=== PATIENT | female | born 1975 | race Caucasian/White ===

== ENCOUNTER → 2017-02-25 | Outpatient (CLI) | payer OTHER ==
--- NOTE | 2017-02-25 11:04 | US ---
EXAMINATION TYPE: US kidneys/renal and bladder DATE OF EXAM: 02/25/2017 8:57 AM COMPARISON: NONE CLINICAL HISTORY: 42-year-old female Abdominal Pain R10.84. Intermittent left flank pain and nausea x few months. TECHNIQUE: Multiple sonographic images of the kidneys and bladder are obtained. FINDINGS: Right Kidney: 10.3 x 5.9 x 5.4 cm Left Kidney: 10.5 x 5.2 x 4.7 cm No hydronephrosis on either side. No gross abnormality of the urine distended bladder. Both ureteral jets are visualized. IMPRESSION: No hydronephrosis.
== END | disposition home or self-care (01) ==
LOC: RADUSWWP 08:29
PROVIDERS: ATTEND Internal Medicine
DX: R10.84 Generalized abdominal pain (principal)
CPT/HCPCS: 76770

== ENCOUNTER → 2021-07-19 | Outpatient (CLI) | payer OTHER ==
--- NOTE | 2021-07-19 15:56 | US ---
EXAMINATION TYPE: US pelvis complete transvag DATE OF EXAM: 07/19/2021 COMPARISON: NONE CLINICAL HISTORY: R10.2 PELVIC AND PERINEL PAIN. TECHNIQUE: Transvaginal (TV) and Transabdominal (TA) . Transabdominal sonographic images of the pel vis were acquired. Transvaginal sonographic images were medically necessary to better assess the fol lowing anatomy: Date of LMP: ?? EXAM MEASUREMENTS: Uterus: 8.6x4.2x cm Endometrial Stripe: 0.5 cm Right Ovary: 2.4x1.6x1.5 cm Left Ovary: 3.0x2.0x2.0 cm Transvaginal exam limited due to incomplete bladder emptying. 1. Uterus: Heterogenous area posterior mid UT ? fibroid 1.9x1.7x1.7 2. Endometrium: wnl 3. Right Ovary: wnl 4. Left Ovary: Dominant follicle 1.3x1.3x1.2cm Spectral, color and waveform doppler imaging shows good arterial and venous flow within the ovaries ; there is no evidence for ovarian torsion. 5. Bilateral Adnexa: wnl 6. Posterior cul-de-sac: wnl IMPRESSION: 1. Uterine fibroid 2. Left ovarian cyst.
== END | disposition home or self-care (01) ==
LOC: RADUSWWP 13:34
PROVIDERS: ATTEND Internal Medicine
DX: D25.9 Leiomyoma of uterus, unspecified (principal); N83.202 Unspecified ovarian cyst, left side
CPT/HCPCS: 76830; 76856

== ENCOUNTER → 2023-12-24 | Outpatient (CLI) | payer OTHER ==
--- NOTE | 2023-12-25 17:51 | MM ---
Reason for Exam: Screening (asymptomatic). Last mammogram was performed 7 year(s) and 3 month(s) ago. Patient History: Menarche at age 13. First Full-Term at age 19. Premenopausal. Risk Values: Maribel 5 year model risk: 0.7%. NCI Lifetime model risk: 6.7%. Prior Study Comparison: 09/24/2016 Bilateral Screening Mammogram, [facility]. Tissue Density: There are scattered areas of fibroglandular density. Findings: Analyzed By CAD. There is no suspicious group of microcalcifications or new suspicious mass in either breast. Overall Assessment: Negative, BI-RAD 1 Management: Screening Mammogram of both breasts in 1 year. . Patient should continue monthly self-breast exams. A clinical breast exam by your physician is recommended on an annual basis. This exam should not preclude additional follow-up of suspicious palpable abnormalities. Note on Maribel scores and lifetime risk: 1. A Maribel score greater than 3% is considered moderate risk. If this is the case, consider specialist referral to assess eligibility for a risk reducing agent. 2. If overall lifetime risk for the development of breast cancer is 20% or higher, the patient may qualify for future screening with alternating mammogram and breast MRI. Electronically signed and approved by: Alin Mcgill M.D. Radiologist
== END | disposition home or self-care (01) ==
LOC: RADMAMWWP 08:54
PROVIDERS: ATTEND Family Medicine
DX: Z12.31 Encounter for screening mammogram for malignant neoplasm of breast (principal)
CPT/HCPCS: 77063; 77067

== ENCOUNTER → 2024-04-27 | Outpatient (CLI) | payer OTHER ==
--- NOTE | 2024-04-28 09:36 | MR ---
EXAMINATION TYPE: MR cervical spine wo con DATE OF EXAM: 04/27/2024 7:02 PM CLINICAL INDICATION:Female, 49 years old with history of NECK PAIN M54.12; PHH, Neck pain that radiat es down right arm to fingers. COMPARISON: None. TECHNIQUE: Multi planar, multi sequence imaging was performed utilizing: T1-weighted, T2-weighted, an d turbo inversion recovery imaging of the cervical spine. IV Contrast: cc (none if empty) FINDINGS: Alignment: The cervical vertebral bodies have preserved heights. Alignment is within normal limits gi lobito patient positioning. Bones: Bone signal is within normal limits. No abnormal bone marrow edema on inversion recovery seque nces. Cord: The spinal cord is unremarkable with regards to their signal intensity and morphology. Discs: Intervertebral disc signal is maintained. C2-C3: No significant disc pathology. The spinal canal is patent. No neural foraminal stenosis. C3-C4: No significant disc pathology. The spinal canal is patent. No neural foraminal stenosis. C4-C5: No significant disc pathology. The spinal canal is patent. No neural foraminal stenosis. C5-C6: No significant disc pathology. The spinal canal is patent. Bilateral facet and uncovertebral joint arthropathy are present with mild bilateral neural foraminal stenosis. C6-C7: No significant disc pathology. The spinal canal is patent. No neural foraminal stenosis. C7-T1: No significant disc pathology. The spinal canal is patent. No neural foraminal stenosis. Other: None. IMPRESSION: 1. No evidence for disc herniation or significant spinal canal stenosis. 2. Mild disc degeneration with associated osteoarthritic changes.
== END | disposition home or self-care (01) ==
LOC: RADMRIMAIN 18:28
PROVIDERS: ATTEND Orthopaedic Surgery
DX: M50.30 Other cervical disc degeneration, unspecified cervical region (principal); M17.11 Unilateral primary osteoarthritis, right knee; G56.21 Lesion of ulnar nerve, right upper limb; G56.01 Carpal tunnel syndrome, right upper limb
CPT/HCPCS: 72141

== ENCOUNTER → 2024-09-15 | Outpatient (CLI) | payer OTHER ==
--- NOTE | 2024-09-15 18:39 | MR ---
EXAMINATION TYPE: MR brain wo/w con DATE OF EXAM: 09/15/2024 5:10 PM COMPARISON: None. CLINICAL INDICATION: Female, 49 years old with history of M21.371 FOOT DROP, RIGHT FOOT, right foot d rop, tripping. whole right side of body has numbness and weakness. patient states making sure it isn' t MS. TECHNIQUE: Multiplanar, multiecho imaging on a 3.0 Suzanne magnet is performed through the brain. Stud y is performed within 24 hours of arrival to the hospital.Multiplanar, multiecho imaging on a 3.0 Christine la magnet is performed through the knee. IV Contrast: 5.5 mL Gadobutrol (None, if empty) FINDINGS: The craniovertebral junction is normal. The pituitary is normal. Corpus callosum is normal Diffusion-weighted imaging is performed. No abnormal hyperintensity is present to suggest an acute i ntracranial infarct or acute ischemic change. No suspicious signal abnormality is evident within the brain. No suspicious T2 or inversion recovery hyperintensity typical for multiple sclerosis identified . A venous angioma is likely within the infe rior medial right basal ganglion, normal variation. No suspicious enhancement is evident. Ventricles and sulci are appropriate for the patient age. Mucosal thickening as do the bilateral maxillary sinuses. Left ethmoid air cells and left sphenoid si nus contain mucosal thickening. IMPRESSION: 1. No suspicious signal abnormality within the brain to suggest multiple sclerosis. 2. No abnormal enhancement. [facility], Workstation: [facility], 09/15/2024 6:37 PM
== END | disposition home or self-care (01) ==
LOC: RADMRIMAIN 16:28
PROVIDERS: ATTEND Family Medicine
DX: M21.371 Foot drop, right foot (principal); R53.1 Weakness
CPT/HCPCS: 70553; A9585

== ENCOUNTER 2024-09-30 03:40 | Inpatient (IN) | payer OTHER ==
[2024-09-30] MEDS: KETOROLAC 15 MG/ML 1 ML VIAL IVP STA (04:41)
[2024-09-30] MEDS: SODIUM CHLORIDE 0.9% 1,000 ML IV STA (04:42)
[2024-09-30] MEDS: ONDANSETRON 4 MG/2 ML VIAL IVP STA (04:42)
[2024-09-30] MEDS: PANTOPRAZOLE 40 MG/10 ML VIAL IVP STA (04:42)
--- NOTE | 2024-09-30 05:09 | ED ---
General Adult HPI - General Source: patient, RN notes reviewed, old records reviewed Mode of arrival: ambulatory Limitations: no limitations <Johnie Castaneda - Last Filed: 09/30/24 06:38> <Joanie Piper - Last Filed: 10/05/24 12:32> - General Chief complaint: Abdominal Pain Stated complaint: ABD Pain Time Seen by Provider: 09/30/24 04:15 - History of Present Illness Initial comments: Patient is a 49-year-old female presents emergency department with lower abdominal pain. Describes as a cramping sensation. Has been ongoing for at least 12 hours. Recently had her menstrual cycle 2 weeks ago. Denies any menstrual bleeding. Describes it as a cramping sensation that is rather severe. Denies any urinary complaints. Denies any vaginal bleeding or discharge. No history of STDs. Denies diarrhea or constipation. Has no other acute complaints at this time. Presents for further evaluation at this time. Has a history of cholecystectomy. (Johnie Castaneda) - Related Data Home Medications Medication Instructions Recorded Confirmed Dextroamphetamine/Amphetamine 20 mg PO DAILY 09/30/24 09/30/24 [Adderall] buPROPion XL [Wellbutrin XL] 150 mg PO DAILY 09/30/24 09/30/24 Allergies Allergy/AdvReac Type Severity Reaction Status Date / Time azithromycin Allergy Nausea & Verified 09/30/24 08:38 Vomiting & Diarrhea Review of Systems ROS Other: All systems not noted in ROS Statement are negative. <Johnie Castaneda - Last Filed: 09/30/24 06:38> ROS Other: All systems not noted in ROS Statement are negative. <Joanie Piper - Last Filed: 10/05/24 12:32> ROS Statement: Those systems with pertinent positive or pertinent negative responses have been documented in the HPI. Review of Systems: CONST: Denies fever EYES: Denies blurry vision ENT: Denies nasal congestion C/V: Denies Chest pain RESP: Denies shortness of breath GI: Endorses abdominal pain : Denies dysuria SKIN: Denies rash. MSK: Denies joint pain. NEURO: Denies headache (Johnie Castaneda) Past Medical History Past Medical History: No Reported History History of Any Multi-Drug Resistant Organisms: None Reported Past Surgical History: Cholecystectomy Past Psychological History: Anxiety, Depression Smoking Status: Vaper Past Alcohol Use History: Rare Past Drug Use History: None Reported <Johnie Castaneda - Last Filed: 09/30/24 06:38> General Exam Limitations: no limitations <Johnie Castaneda - Last Filed: 09/30/24 06:38> - General Exam Comments Initial Comments: General: Appears in mild acute distress HEAD: Normal with no signs of head trauma. EYES: EOMI ENT: Hearing grossly intact, normal oropharynx. RESPIRATORY: Clear breath sounds bilaterally. No wheezes, rales, or rhonchi. C/V: Regular rate and rhythm. S1 and S2 auscultated, no edema, peripheral pulses 2+ and intact throughout ABD: Abdomen soft, nondistended. Tender palpation in the suprapubic region. No guarding or rebound tenderness. No peritoneal signs. EXT: Normal range of motion, no obvious deformity SKIN: No rashes or lesions observed on exposed skin. NEURO: Alert and oriented x 4. (Johnie Castaneda) Course Vital Signs 09/30/24 09/30/24 09/30/24 03:50 07:30 17:09 Temperature 98.7 F 98.7 F Pulse Rate 87 77 83 Respiratory 16 16 16 Rate Blood Pressure 109/77 96/66 107/70 O2 Sat by Pulse 100 100 Oximetry 09/30/24 09/30/24 09/30/24 18:59 19:12 20:37 Temperature 98.6 F Pulse Rate 183 H 83 80 Respiratory 16 14 Rate Blood Pressure 101/77 98/58 O2 Sat by Pulse 99 98 Oximetry 09/30/24 21:56 Temperature 98.6 F Pulse Rate 68 Respiratory 16 Rate Blood Pressure 107/70 O2 Sat by Pulse 100 Oximetry Medical Decision Making - Lab Data Result diagrams: 09/30/24 04:49 09/30/24 04:49 <Jhonie Castaneda - Last Filed: 09/30/24 06:38> - Lab Data Result diagrams: 10/04/24 06:08 10/04/24 06:08 <Joanie Piper - Last Filed: 10/05/24 12:32> - Medical Decision Making Was pt. sent in by a medical professional or institution (, PA, TECHNICAL SUPPORT PROFESSIONAL, urgent care, hospital, or fci...) When possible be specific @ -No Did you speak to anyone other than the patient for history (EMS, parent, family, police, friend...)? What history was obtained from this source @ -No Did you review nursing and triage notes (agree or disagree)? Why? @ -I reviewed and agree with nursing and triage notes Were old charts reviewed (outside hosp., previous admission, EMS record, old EKG, old radiological studies, urgent care reports/EKG's, fci records)? Report findings @ -No old charts were reviewed Differential Diagnosis (chest pain, altered mental status, abdominal pain women, abdominal pain men, vaginal bleeding, weakness, fever, dyspnea, syncope, headache, dizziness, GI bleed, back pain, seizure, CVA, palpatations, mental health, musculoskeletal)? @ -Differential Abdominal Pain Women: Appendicitis, Cholecystitis, diverticulosis, ischemic bowel, pancreatitis, hepatitis, UTI, gastroenteritis, AAA, incarcerated hernia, bowel obstruction, constipation, inflammatory bowel, hepatitis, peptic ulcer disease, splenic infarction, perforated viscus, vulvitis, ovarian torsion, PID, kidney stone, placenta abruption, this is not meant to be an all-inclusive list EKG interpreted by me (3pts min.). @ -None done X-rays interpreted by me (1pt min.). @ -None done CT interpreted by me (1pt min.). @ -Pending U/S interpreted by me (1pt. min.). @ -Pending What testing was considered but not performed or refused? (CT, X-rays, U/S, labs)? Why? @ -None What meds were considered but not given or refused? Why? @ -None Did you discuss the management of the patient with other professionals (professionals i.e. , PA, TECHNICAL SUPPORT PROFESSIONAL, lab, RT, psych nurse, bilingual social worker, optimization consultant, teacher, postal delivery officer, telephonic nurse case manager)? Give summary @ -No Was smoking cessation discussed for >3mins.? @ -No Was critical care preformed (if so, how long)? @ -No Were there social determinants of health that impacted care today? How? (Homelessness, low income, unemployed, alcoholism, drug addiction, transportation, low edu. Level, literacy, decrease access to med. care, senior care, rehab)? @ -No Was there de-escalation of care discussed even if they declined (Discuss DNR or withdrawal of care, Hospice)? DNR status @ -No What co-morbidities impacted this encounter? (DM, HTN, Smoking, COPD, CAD, Cancer, CVA, ARF, Chemo, Hep., AIDS, mental health diagnosis, sleep apnea, morbid obesity)? @ -None Was patient admitted / discharged? Hospital course, mention meds given and route, prescriptions, significant lab abnormalities, going to OR and other pertinent info. @ -Based on patient's presentation and physical exam, presents emergency department complaining of lower abdominal pain ongoing for at least 12 hours. She has experienced this previously with no obvious diagnosis. We will obtain laboratory studies, abdominal CT, as well as ultrasound of the pelvis. This will rule out torsion. Patient will be symptomatically treated with IV fluids, Protonix, Zofran, Toradol. Patient was in agreement this plan. Vitals current ly within acceptable limits. Patient signed out to Dr. Piper pending results of workup. Undiagnosed new problem with uncertain prognosis? @ -No Drug Therapy requiring intensive monitoring for toxicity (Heparin, Nitro, Insulin, Cardizem)? @ -No Were any procedures done? @ -No (Johnie Castaneda) Was patient admitted / discharged? Hospital course, mention meds given and route, prescriptions, significant lab abnormalities, going to OR and other pertinent info. @ -I received a call which stated the patient had free air. This is discussed with the patient. I then discussed this with Dr. Howell. Patient will have fluids and antibiotics ordered. She remains NPO. She will be admitted to surgery. Patient agreeable to this plan Undiagnosed new problem with uncertain prognosis? @ -No Drug Therapy requiring intensive monitoring for toxicity (Heparin, Nitro, Ins ulin, Cardizem)? @ -No Were any procedures done? @ -No Diagnosis/symptom? @ -Acute abdominal pain, acute pneumoperitoneum, suspected diverticular rupture Acute, or Chronic, or Acute on Chronic? @ -Acute Uncomplicated (without systemic symptoms) or Complicated (systemic symptoms)? @ -Complicated Side effects of treatment? @ -No Exacerbation, Progression, or Severe Exacerbation? @ -No Poses a threat to life or bodily function? How? (Chest pain, [place], [place], pneumonia, PE, COPD, DKA, ARF, appy, cholecystitis, CVA, Diverticulitis, Homicidal, Suicidal, threat to staff... and all critical care pts) @ -Yes as patient does have pneumoperitoneum (Joanie Piper) - Lab Data Lab Results 09/30/24 09/30/24 09/30/24 Range/Units 04:49 04:49 04:49 WBC 11.4 H (3.8-10.6) k/uL RBC 5.26 (3.80-5.40) m/uL Hgb 14.3 (11.4-16.0) gm/dL Hct 44.6 (34.0-46.0) % MCV 84.8 (80.0-100.0) fL MCH 27.3 (25.0-35.0) pg MCHC 32.1 (31.0-37.0) g/dL RDW 13.5 (11.5-15.5) % Plt Count 275 (150-450) k/uL MPV 7.2 Neutrophils % 77 % Lymphocytes % 15 % Monocytes % 4 % Eosinophils % 2 % Basophils % 0 % Neutrophils # 8.8 H (1.3-7.7) k/uL Lymphocytes # 1.7 (1.0-4.8) k/uL Monocytes # 0.5 (0-1.0) k/uL Eosinophils # 0.2 (0-0.7) k/uL Basophils # 0.1 (0-0.2) k/uL PT (10.0-12.5) sec INR (<1.2) APTT (22.0-30.0) sec Sodium 135 L (137-145) mmol/L Potassium 4.1 (3.5-5.1) mmol/L Chloride 107 (98-107) mmol/L Carbon Dioxide 22 (22-30) mmol/L Anion Gap 6 mmol/L BUN 21 H (7-17) mg/dL Creatinine 0.80 (0.52-1.04) mg/dL Est GFR (CKD-EPI)AfAm >90 (>60 ml/min/1.73 sqM) Est GFR (CKD-EPI)NonAf 87 (>60 ml/min/1.73 sqM) Glucose 83 (74-99) mg/dL Plasma Lactic Acid Robe (0.7-2.0) mmol/L Calcium 9.8 (8.4-10.2) mg/dL Total Bilirubin 0.4 (0.2-1.3) mg/dL AST 19 (14-36) U/L ALT 11 (4-34) U/L Alkaline Phosphatase 46 (38-126) U/L Total Protein 7.6 (6.3-8.2) g/dL Albumin 4.8 (3.5-5.0) g/dL Amylase 55 (30-110) U/L Lipase 272 (23-300) U/L HCG, Qual Not Detected Urine Color Colorless Urine Appearance Clear (Clear) Urine pH 6.5 (5.0-8.0) Ur Specific [place] 1.012 (1.001-1.035) Urine Protein Negative (Negative) Urine Glucose (UA) Negative (Negative) Urine Ketones Negative (Negative) Urine Blood Negative (Negative) Urine Nitrite Negative (Negative) Urine Bilirubin Negative (Negative) Urine Urobilinogen <2.0 (<2.0) mg/dL Ur Leukocyte Esterase Negative (Negative) 09/30/24 09/30/24 Range/Units 04:49 05:03 WBC (3.8-10.6) k/uL RBC (3.80-5.40) m/uL Hgb (11.4-16.0) gm/dL Hct (34.0-46.0) % MCV (80.0-100.0) fL MCH (25.0-35.0) pg MCHC (31.0-37.0) g/dL RDW (11.5-15.5) % Plt Count (150-450) k/uL MPV Neutrophils % % Lymphocytes % % Monocytes % % Eosinophils % % Basophils % % Neutrophils # (1.3-7.7) k/uL Lymphocytes # (1.0-4.8) k/uL Monocytes # (0-1.0) k/uL Eosinophils # (0-0.7) k/uL Basophils # (0-0.2) k/uL PT 10.6 (10.0-12.5) sec INR 0.9 (<1.2) APTT 24.6 (22.0-30.0) sec Sodium (137-145) mmol/L Potassium (3.5-5.1) mmol/L Chloride (98-107) mmol/L Carbon Dioxide (22-30) mmol/L Anion Gap mmol/L BUN (7-17) mg/dL Creatinine (0.52-1.04) mg/dL Est GFR (CKD-EPI)AfAm (>60 ml/min/1.73 sqM) Est GFR (CKD-EPI)NonAf (>60 ml/min/1.73 sqM) Glucose (74-99) mg/dL Plasma Lactic Acid Robe 1.1 (0.7-2.0) mmol/L Calcium (8.4-10.2) mg/dL Total Bilirubin (0.2-1.3) mg/dL AST (14-36) U/L ALT (4-34) U/L Alkaline Phosphatase (38-126) U/L Total Protein (6.3-8.2) g/dL Albumin (3.5-5.0) g/dL Amylase (30-110) U/L Lipase (23-300) U/L HCG, Qual Urine Color Urine Appearance (Clear) Urine pH (5.0-8.0) Ur Specific [place] (1.001-1.035) Urine Protein (Negative) Urine Glucose (UA) (Negative) Urine Ketones (Negative) Urine Blood (Negative) Urine Nitrite (Negative) Urine Bilirubin (Negative) Urine Urobilinogen (<2.0) mg/dL Ur Leukocyte Esterase (Negative) Disposition <Johnie Castaneda - Last Filed: 09/30/24 06:38> Is patient prescribed a controlled substance at d/c from ED?: No Time of Disposition: 08:21 Decision to Admit Reason: Admit from EC Decision Date: 09/30/24 Decision Time: 08:21 <Joanie Piper - Last Filed: 10/05/24 12:32> Clinical Impression: Pneumoperitoneum Disposition: ADMITTED IP TO THIS HOSP Condition: Serious
[2024-09-30 05:23] LABS: Basophils # (A) 0.1 k/uL (0-0.2); Basophils % (A) 0 %; Eosinophils # (A) 0.2 k/uL (0-0.7); Eosinophils % (A) 2 %; HCT 44.6 % (34.0-46.0); HGB 14.3 gm/dL (11.4-16.0); Lymphocytes # (A) 1.7 k/uL (1.0-4.8); Lymphocytes % (A) 15 %; MCH 27.3 pg (25.0-35.0); MCHC 32.1 g/dL (31.0-37.0); MCV 84.8 fL (80.0-100.0); Mean Platelet Volume 7.2; Monocytes # (A) 0.5 k/uL (0-1.0); Monocytes % (A) 4 %; Neutrophils # (A) 8.8 k/uL (1.3-7.7); Neutrophils % (A) 77 %; Platelet Count 275 k/uL (150-450); RBC 5.26 m/uL (3.80-5.40); RDW 13.5 % (11.5-15.5); WBC 11.4 k/uL (3.8-10.6)
[2024-09-30 06:01] LABS: ALT 11 U/L (4-34); AST 19 U/L (14-36); African American GFR (CKD) >90 (>60 ml/min/1.73 sqM); Albumin 4.8 g/dL (3.5-5.0); Alkaline Phosphatase 46 U/L (38-126); Amylase 55 U/L (30-110); Anion Gap 6 mmol/L; Blood Urea Nitrogen 21 mg/dL (7-17); Calcium 9.8 mg/dL (8.4-10.2); Carbon Dioxide 22 mmol/L (22-30); Chloride 107 mmol/L (98-107); Glucose 83 mg/dL (74-99); Lipase 272 U/L (23-300); Non-African American GFR(CKD) 87 (>60 ml/min/1.73 sqM); Potassium 4.1 mmol/L (3.5-5.1); Sodium 135 mmol/L (137-145); Total Bilirubin 0.4 mg/dL (0.2-1.3); Total Protein 7.6 g/dL (6.3-8.2)
[2024-09-30 06:17] LABS: HCG,Qualitative Serum Not Detected
[2024-09-30 06:32] LABS: INR 0.9 (<1.2); Partial Thromboplastin Time 24.6 sec (22.0-30.0); Prothrombin Time 10.6 sec (10.0-12.5)
[2024-09-30 07:12] LABS: Appearance,Urine Clear (Clear); Bilirubin,Urine Negative (Negative); Blood,Urine Negative (Negative); Color,Urine Colorless; Glucose,Urine (UA) Negative (Negative); Ketones,Urine Negative (Negative); Leukocyte Esterase,Urine Negative (Negative); Nitrite,Urine Negative (Negative); PH, Urine 6.5 (5.0-8.0); Protein,Urine Negative (Negative); Specific Gravity,Urine 1.012 (1.001-1.035); Urobilinogen,Urine <2.0 mg/dL (<2.0)
--- NOTE | 2024-09-30 08:16 | US ---
EXAMINATION TYPE: US pelvis complete transvag DATE OF EXAM: 09/30/2024 COMPARISON: NONE CLINICAL INDICATION: Female, 49 years old with history of eval for torsion; Patient states lower abdo jacinto pain/ cramping. Hx endo ablation TECHNIQUE: Transvaginal (TV) and Transabdominal (TA) . Transabdominal grayscale sonographic images of the pelvis were acquired. Transvaginal sonographic im ages were medically necessary to better assess the following anatomy: Ovaries Doppler imaging: Color Doppler Images were obtained. Spectral doppler images were obtained. FINDINGS: Date of LMP: 09/15/2024 EXAM MEASUREMENTS: Uterus: 8.6 x 3.7 x 5.1 cm Endometrial Stripe: 0.5 cm Right Ovary: 2.3 x 1.6 x 1.7 cm Left Ovary: 2.4 x 2.1 x 2.3cm cm 1. Uterus: Anteverted wnl as best seen, probable nabothian cysts seen within the cx 2. Endometrium: difficult to visualize due to endo ablation, however appears wnl 3. Right Ovary: follicular changes noted. supplemental transabdominal imaging done due to ovary loca tion on TV exam 4. Left Ovary: There is a 1.4 x 1.6 x 1.4cm dom follicle Spectral, color and waveform doppler imaging shows good arterial and venous flow within the ovaries ; there is no evidence for ovarian torsion. 5. Bilateral Adnexa: wnl as best seen 6. Posterior cul-de-sac: wnl IMPRESSION: 1. No evidence for acute process. 2. Endometrium is poorly visualized possibly due to endometrial ablation. 3. Appropriate arterial and venous spectral waveforms to the ovaries. 4. Left ovarian dominant follicle. [facility], , 09/30/2024 8:14 AM
--- NOTE | 2024-09-30 08:17 | CT ---
EXAMINATION TYPE: CT abdomen pelvis w con DATE OF EXAM: 09/30/2024 6:50 AM COMPARISON: None. CLINICAL INDICATION: Female, 49 years old with history of abdominal pain, TECHNIQUE:CT scan of the abdomen and pelvis is performed without Oral Contrast and with IV Contrast, patient injected with 100 mL of Isovue 300. CT DLP: mGycm, Automated exposure control for dose reduction was used. FINDINGS: LUNG BASES-: No visible nodule. No infiltrate. LIVER/GB: The gallbladder is surgically absent. Focal fat adjacent to the falciform ligament. No s pace occupying hepatic lesion. Biliary tree is of normal caliber. PANCREAS: No inflammation. No distinct mass. SPLEEN: No splenic enlargement. No lesion seen. ADRENALS: No nodule. No thickening. KIDNEYS/BLADDER: No hydronephrosis. No nephrolithiasis. No distinct renal mass. Urinary bladder g rossly unremarkable. BOWEL: There is evidence of mild pneumoperitoneum. There is mild inflammatory change suggested about the sigmoid colon which could reflect diverticulitis. Free air could be related to perforated divert iculitis although this is difficult to state with certainty. No evidence for abscess. Poor visualizat ion of the appendix. Remaining small and large bowel are of normal caliber. GENITAL ORGANS: Left ovarian cyst measuring 1.6 cm. Uterus and right ovary are unremarkable. LYMPH NODES: No greater than 1cm abdominal or pelvic lymph nodes are appreciated. AORTA: No significant abnormality. OSSEOUS STRUCTURES: No significant abnormality is seen. OTHER: 1.2 cm right breast nodule. Ultrasound and mammography advised. IMPRESSION: 1. There is evidence of mild pneumoperitoneum. There is mild inflammatory change suggested about the sigmoid colon which could reflect diverticulitis. Free air could be related to perforated diverticul itis although this is difficult to state with certainty. 2. Left ovarian cyst measuring 1.6 cm. [facility], , 09/30/2024 8:15 AM
[2024-09-30] MEDS ORDERED: NALOXONE 0.4 MG/ML 1 ML VIAL IV PRN (08:22)
[2024-09-30] MEDS: SODIUM CHLORIDE 0.9% 1,000 ML IV ONE (08:43)
[2024-09-30] MEDS: SODIUM CHLORIDE 0.9% 1,000 ML IV SCH (08:43)
[2024-09-30] MEDS: HYDROmorphone 0.5 MG/0.5 ML SYRINGE IVP STA (08:44)
[2024-09-30] MEDS: PIPERACILLIN-TAZOBACTAM 3.375 GM in SODIUM CHLORIDE 0.9% 100 ML IVPB SCH ×2 (08:49→14:58)
[2024-09-30] MEDS: HYDROmorphone 1 MG/ML 1 ML SYRINGE IVP PRN (12:41)
--- NOTE | 2024-09-30 12:52 | P.GSHP ---
History of Present Illness H&P Date: 09/30/24 CHIEF COMPLAINT: Abdominal pain HISTORY OF PRESENT ILLNESS: This is a 49-year-old female who presented to the hospital with complaints of abdominal pain that started suddenly and very severe yesterday afternoon. Patient reports pain in the suprapubic area and left lower quadrant. She does have a known history of constipation. Patient also reports feeling nauseous. She denies any prior history of diverticulitis. She has never had a colonoscopy. She had a CAT scan of the abdomen completed reporting mild pneumoperitoneum possibly due to perforated diverticulitis. Patient is been started on IV antibiotics and is currently NPO. Her past surgical history includes cholecystectomy. Patient seen and examined with Dr. Howell PAST MEDICAL HISTORY: Anxiety and depression PAST SURGICAL HISTORY: Cholecystectomy MEDICATIONS: See below ALLERGIES: See below SOCIAL HISTORY: No illicit drug use. REVIEW OF SYSTEMS: CONSTITUTIONAL: Denies fever or chills. HEENT: Denies blurred vision, vision changes, or eye pain. Denies hemoptysis CARDIOVASCULAR: Denies chest pain or pressure. RESPIRATORY: No shortness of breath. GASTROINTESTINAL: See HPI for pertinent findings HEMATOLOGIC: Denies bleeding disorders. GENITOURINARY: Denies any blood in urine or increased urinary frequency. SKIN: Denies pruitis. Denies rash. PHYSICAL EXAM: VITAL SIGNS: Reviewed GENERAL: Well-developed in no acute distress. HEENT: No sclera icterus. Extraocular movements grossly intact. Moist buccal mucosa. Head is atraumatic, normocephalic. No nasal drainage. ABDOMEN: Soft. Nondistended. Severe tenderness with palpation of the suprapubic area and left lower quadrant. Patient is guarding. Abdominal pain with movement of the bed NEUROLOGIC: Alert and oriented. Cranial nerves II through XII grossly intact. LABORATORY DATA: WBC 11.4 Hgb 14.3 platelets 275 INR 0.9 Sodium 135 potassium 4.1 creatinine 0.80 Lactic acid 1.1 IMAGING: CT scan abdomen pelvis reports evidence of mild pneumoperitoneum. There is mild inflammatory change suggestive about the sigmoid colon which could reflect diverticulitis. Free air could be related to a perforated diverticulitis. Left ovarian cyst measuring 1.6 cm. Pelvic ultrasound no evidence of acute process. Endometrium poorly visualized due to endometrial ablation. ASSESSMENT: 1. Acute diverticulitis of the sigmoid colon with microperforation. CT scan with evidence of mild pneumoperitoneum with inflammatory changes of the sigmoid colon that could reflect diverticulitis and possible perforated diverticulitis. PLAN: -Continue IV antibiotics -Keep patient n.p.o. except for ice chips -Continue IV fluids -Increased pain medication to Dilaudid 1 mg every 3 hours PRN pain -DVT prophylaxis subcu heparin Physician Military Source Operations Specialist note has been reviewed by physician. Signing provider agrees with the documented findings, assessment, and plan of care. Past Medical History Past Medical History: No Reported History History of Any Multi-Drug Resistant Organisms: None Reported Past Surgical History: Cholecystectomy Past Psychological History: Anxiety, Depression Smoking Status: Vaper Past Alcohol Use History: Rare Past Drug Use History: None Reported Medications and Allergies Home Medications Medication Instructions Recorded Confirmed Type Dextroamphetamine/Amphetamine 20 mg PO DAILY 09/30/24 09/30/24 History [Adderall] buPROPion XL [Wellbutrin XL] 150 mg PO DAILY 09/30/24 09/30/24 History Allergies Allergy/AdvReac Type Severity Reaction Status Date / Time azithromycin Allergy Nausea & Verified 09/30/24 08:38 Vomiting & Diarrhea Surgical - Exam Vital Signs Temp Pulse Resp BP Pulse Ox 98.7 F 87 16 109/77 100 09/30/24 03:50 09/30/24 03:50 09/30/24 03:50 09/30/24 03:50 09/30/24 03:50 Results - Labs 09/30/24 04:49 09/30/24 04:49 Abnormal Lab Results - Last 24 Hours (Table) 09/30/24 09/30/24 Range/Units 04:49 04:49 WBC 11.4 H (3.8-10.6) k/uL Neutrophils # 8.8 H (1.3-7.7) k/uL Sodium 135 L (137-145) mmol/L BUN 21 H (7-17) mg/dL Diabetes panel 09/30/24 Range/Units 04:49 Sodium 135 L (137-145) mmol/L Potassium 4.1 (3.5-5.1) mmol/L Chloride 107 (98-107) mmol/L Carbon Dioxide 22 (22-30) mmol/L BUN 21 H (7-17) mg/dL Creatinine 0.80 (0.52-1.04) mg/dL Glucose 83 (74-99) mg/dL Calcium 9.8 (8.4-10.2) mg/dL AST 19 (14-36) U/L ALT 11 (4-34) U/L Alkaline Phosphatase 46 (38-126) U/L Total Protein 7.6 (6.3-8.2) g/dL Albumin 4.8 (3.5-5.0) g/dL Calcium panel 09/30/24 Range/Units 04:49 Calcium 9.8 (8.4-10.2) mg/dL Albumin 4.8 (3.5-5.0) g/dL Pituitary panel 09/30/24 Range/Units 04:49 Sodium 135 L (137-145) mmol/L Potassium 4.1 (3.5-5.1) mmol/L Chloride 107 (98-107) mmol/L Carbon Dioxide 22 (22-30) mmol/L BUN 21 H (7-17) mg/dL Creatinine 0.80 (0.52-1.04) mg/dL Glucose 83 (74-99) mg/dL Calcium 9.8 (8.4-10.2) mg/dL Adrenal panel 09/30/24 Range/Units 04:49 Sodium 135 L (137-145) mmol/L Potassium 4.1 (3.5-5.1) mmol/L Chloride 107 (98-107) mmol/L Carbon Dioxide 22 (22-30) mmol/L BUN 21 H (7-17) mg/dL Creatinine 0.80 (0.52-1.04) mg/dL Glucose 83 (74-99) mg/dL Calcium 9.8 (8.4-10.2) mg/dL Total Bilirubin 0.4 (0.2-1.3) mg/dL AST 19 (14-36) U/L ALT 11 (4-34) U/L Alkaline Phosphatase 46 (38-126) U/L Total Protein 7.6 (6.3-8.2) g/dL Albumin 4.8 (3.5-5.0) g/dL
[2024-09-30] MEDS: ACETAMINOPHEN TAB 325 MG TAB PO PRN (17:18)
[2024-09-30] MEDS: HEPARIN SODIUM,PORCINE 5,000 UNIT/ML 1 ML VIAL SQ SCH (20:31)
[2024-10-01 08:58] LABS: Basophils # (A) 0.02 X 10*3/uL (0.00-0.10); Basophils % (A) 0.2 %; Calcium 7.9 mg/dL (8.7-10.3); Carbon Dioxide 19.2 mmol/L (21.6-31.8); Chloride 109 mmol/L (96-109); Eosinophils # (A) 0.08 X 10*3/uL (0.04-0.35); Glucose 62 mg/dL (70-110); HCT 34.1 % (37.2-46.3); HGB 10.5 g/dL (12.0-15.0); Lymphocytes # (A) 1.72 X 10*3/uL (0.90-5.00); Lymphocytes % (A) 21.1 %; MCH 26.6 pg (27.0-32.0); MCHC 30.8 g/dL (32.0-37.0); MCV 86.5 FL (80.0-97.0); Mean Platelet Volume 10.7 FL (9.5-12.2); Monocytes # (A) 0.59 X 10*3/uL (0.20-1.00); Monocytes % (A) 7.2 %; NRBC Per 100 WBC 0 X 10*3/uL (0.00-0.01); Neutrophils % (A) 70.1 %; Platelet Count 186 X 10*3/uL (140-440); Potassium 3.9 mmol/L (3.5-5.5); RBC 3.94 X 10*6/uL (4.10-5.20); RDW 13.9 % (11.5-14.5); Sodium 138 mmol/L (135-145); WBC 8.14 X 10*3/uL (4.50-10.00)
[2024-10-01] MEDS: IOPAMIDOL CONTRAST (ORAL USE) VIAL PO PRN (10:59)
[2024-10-01] MEDS: ACETAMINOPHEN IV (For NPO) 1,000 MG in EMPTY BAG 1 BAG IVPB SCH (11:58)
--- NOTE | 2024-10-01 13:04 | CT ---
EXAMINATION TYPE: CT abdomen pelvis w con CT DLP: 630.1 mGycm, Automated exposure control for dose reduction was used. DATE OF EXAM: 10/01/2024 12:50 PM COMPARISON: CT abdomen pelvis 09/30/2024, pelvic ultrasound 09/30/2024 CLINICAL INDICATION:Female, 49 years old with history of abdominal pain; lower abd pain TECHNIQUE: Standard CT of the abdomen and pelvis following the administration of 100 cc of Isovue 3 00 IV contrast material and oral contrast. Coronal and sagittal reformats were performed. Patient was reportedly unable to keep oral prep down. FINDINGS: LOWER CHEST: Unremarkable ABDOMEN LIVER: Focal fatty infiltration adjacent to the falciform ligament in segment IVb GALLBLADDER AND BILE DUCTS: The gallbladder is surgically absent. No biliary duct dilatation. PANCREAS: Unremarkable. SPLEEN: Unremarkable. ADRENAL GLANDS: Unremarkable. KIDNEYS AND URETERS: No evidence of hydronephrosis or renal calculus. The kidneys enhance symmetrical ly. Contrast is demonstrated within both collecting systems on the delayed phase. PELVIS BLADDER: Underdistended but grossly unremarkable. REPRODUCTIVE: Anteverted uterus with enhancing myometrial 2.4 cm lesion likely representing a fibroid . Left ovarian probable corpus luteal cyst measuring up to 1.6 cm. ABDOMEN & PELVIS STOMACH AND BOWEL: Oral contrast is only demonstrated within the stomach.The appendix is within brooks l limits. Distal colonic diverticulosis with fat stranding identified around the sigmoid colon. No ev idence of bowel obstruction. No surrounding inflammatory changes or wall thickening involving the sto mach or duodenum. PERITONEUM/RETROPERITONEUM: Increased pneumoperitoneum from earlier examination. Increased presacral fat stranding/fluid. No organized fluid collections. VASCULATURE: No evidence of aortic aneurysm. MUSCULOSKELETAL: No acute osseous abnormalities LYMPH NODES: No evidence for lymphadenopathy. SOFT TISSUE/ABDOMINAL WALL: Unremarkable IMPRESSION: Mild interval increase in pneumoperitoneum from yesterday's CT with redemonstration of inflammatory c hanges around the sigmoid diverticula. Findings probably relate to perforated sigmoid diverticulitis. Oral contrast only was demonstrated within the stomach due to patient unable to keep down. No surrou nding organized fluid collection. [facility], , 10/01/2024 1:02 PM
--- NOTE | 2024-10-01 14:57 | P.PN ---
Subjective Progress Note Date: 10/01/24 SURGICAL PROGRESS NOTE CHIEF COMPLAINT: Perforated diverticulitis HISTORY OF PRESENT ILLNESS: Patient complains of pain across the lower abdomen mostly left lower quadrant and suprapubic area. Patient reports that the pain is not worse than yesterday. She does have pain with movement. She is having f latus. She reports nausea with even just small sip of water. Patient reports being able to urinate. Patient did have a sharp pain in the abdomen with urinating. Patient is still severely tender. Afebrile. She was mildly tachycardic. BP 96/62. WBC is down from 11.4-8.14 Hgb 10.5 platelets 186 sodium 138 potassium 3.9 creatinine 0.6 Patient seen and examined with Dr. Howell PHYSICAL EXAM: VITAL SIGNS: Reviewed. GENERAL: Well-developed in no acute distress. HEENT: No sclera icterus. Extraocular movements grossly intact. Moist buccal mucosa. Head is atraumatic, normocephalic. ABDOMEN: Soft. Nondistended. Patient is extremely tender on exam with palpation across the lower abdomen mostly suprapubic and left lower quadrant. She does have guarding present. There is pain when the bed is moved. NEUROLOGIC: Alert and oriented. Cranial nerves II through XII grossly intact. ASSESSMENT: 1. Acute diverticulitis of the sigmoid colon with microperforation. PLAN: -Due to patient's severe abdominal pain with not much of his improvement repeat CT scan abdomen and pelvis with oral and IV contrast was ordered this morning. Results reported mild interval increase in pneumoperitoneum from yesterday's CT with redemonstration of inflammatory changes around the sigmoid diverticula. Findings are probably related to perforated sigmoid diverticulitis. no organizing fluid collection. -Dr. Howell did discuss CT scan findings with patient. At this time patient will be tentatively scheduled for sigmoid colectomy tomorrow. -Will give 1 liter fluid bolus due to hypotension -Fluids will be changed to lactated Ringer at 150 mL/h -Continue antibiotics -Continue IV fluids -Continue pain management. IV Tylenol added. -Keep patient n.p.o. -Add GI prophylaxis Protonix Physician Ball Point Splitter note has been reviewed by physician. Signing provider agrees with the documented findings, assessment, and plan of care. Objective - Vital Signs Vital signs: Vital Signs Temp 98.1 F 10/01/24 13:15 Pulse 89 10/01/24 13:15 Resp 18 10/01/24 13:15 BP 96/62 10/01/24 13:15 Pulse Ox 98 10/01/24 13:15 FiO2 Intake & Output 09/30/24 10/01/24 10/01/24 18:59 06:59 18:59 Weight 55.792 kg Other: Voiding Method Toilet Toilet # Voids 2 - Labs CBC & Chem 7: 10/01/24 03:34 10/01/24 03:34 Labs: Abnormal Lab Results - Last 24 Hours (Table) 10/01/24 10/01/24 Range/Units 03:34 03:34 RBC 3.94 L (4.10-5.20) X 10*6/uL Hgb 10.5 L (12.0-15.0) g/dL Hct 34.1 L (37.2-46.3) % MCH 26.6 L (27.0-32.0) pg MCHC 30.8 L (32.0-37.0) g/dL Carbon Dioxide 19.2 L (21.6-31.8) mmol/L BUN/Creatinine Ratio 25.00 H (12.00-20.00) Ratio Glucose 62 L (70-110) mg/dL Calcium 7.9 L (8.7-10.3) mg/dL Microbiology - Last 24 Hours (Table) 09/30/24 08:38 Blood Culture - Preliminary Blood
[2024-10-01] MEDS: PANTOPRAZOLE 40 MG/10 ML VIAL IVP SCH (15:08)
[2024-10-01] MEDS: SODIUM CHLORIDE 0.9% 1,000 ML IV ONE (15:08)
[2024-10-01] MEDS: DEXTROSE 5% IN WATER 1,000 ML IV SCH (17:05)
[2024-10-01] MEDS: ONDANSETRON 4 MG/2 ML VIAL IVP PRN (22:23)
--- NOTE | 2024-10-02 01:00 | P.CONS ---
History of Present Illness - Reason for Consult Consult date: 10/01/24 Medical management - Chief Complaint Abdominal pain - History of Present Illness Patient is a 49-year-old female with a past medical history of anxiety/depression and history of vaping presents to ER with complaints of abdominal pain since yesterday. Mainly in the lower abdomen and suprapubic area as well as left lower quadrant. Patient does have a history of constipation and diarrhea on and off. Patient also felt nauseous. No episodes of vomiting. Denied any recent illnesses. No recent diarrhea. No prior history of colonoscopy. CT of the abdomen pelvis done in the ER showed there is evidence of mild pneumoperitoneum. There is mild inflammatory changes suggested about the sigmoid colon which reflect diverticulitis. Free air could be related to perforated diverticuli although this is difficult to state with certainty. Left ovarian cyst measuring 1.6 cm. Laboratory data showed WBC 11.4 hemoglobin 14.3 and platelets 275 neutrophils 8.8 sodium 135 potassium 4.1 chloride 107 bicarb is 22 BUN 21 0.80 and blood sugar 83 liver enzymes are not elevated lipase 27 ambulates with D5 beta-hCG not detected. Urinalysis is negative for infection. Transvaginal ultrasound showed no evidence of acute process. Endometrium is poorly visualized possibly due to endometrial ablation. Appreciate arterial and venous rectal polyps to the ovaries. Left ovarian dominant follicle. Review of Systems Constitutional: Patient denies any fever or chills . no Generalized weakness. Abdomen: Patient complains of lower abdominal pain associated with Nausea. no vomiting. +constipation Cardiovascular: Patient denies any chest pain or short of breath no palpitations. Respiratory: patient denied any cough . no sputum production. No shortness of breath Neurologic: Patient denied any numbness or tingling or headache. Musculoskeletal: Patient denies any complaints of joint swelling or deformity. Skin: Negative Psychiatric: Negative Endocrine: No heat or cold intolerance. No recent weight gain. Genitourinary: No dysuria or hematuria. All other 14 point ROS negative except the above Past Medical History Past Medical History: No Reported History History of Any Multi-Drug Resistant Organisms: None Reported Past Surgical History: Adenoidectomy, Cholecystectomy, Tonsillectomy Past Psychological History: Anxiety, Depression Smoking Status: Vaper Past Alcohol Use History: Rare Past Drug Use History: None Reported Medications and Allergies Home Medications Medication Instructions Recorded Confirmed Type Dextroamphetamine/Amphetamine 20 mg PO DAILY 09/30/24 09/30/24 History [Adderall] buPROPion XL [Wellbutrin XL] 150 mg PO DAILY 09/30/24 09/30/24 History Allergies Allergy/AdvReac Type Severity Reaction Status Date / Time azithromycin Allergy Nausea & Verified 09/30/24 08:38 Vomiting & Diarrhea Physical Exam Vitals: Vital Signs Temp Pulse Resp BP Pulse Ox 10/01/24 19:37 99.0 F 91 16 103/69 99 10/01/24 13:15 98.1 F 89 18 96/62 98 10/01/24 08:27 102 H 18 10/01/24 07:11 98.8 F 102 H 18 101/62 99 10/01/24 01:40 98.5 F 96 16 104/65 96 Intake and Output 10/01/24 10/01/24 10/02/24 14:59 22:59 06:59 Other: Voiding Method Toilet Toilet PHYSICAL EXAMINATION: Patient is lying in the bed , mild distress, awake alert and oriented.. HEENT: Normocephalic. Neck is supple. Pupils reactive. Nostrils clear. Oral cavity is moist. Neck reveals no JVD, carotid bruits, or thyromegaly. CHEST EXAMINATION: Trachea is central. Symmetrical expansion. Lung beltrán clear to auscultation and percussion. CARDIAC: Normal S1, S2 with no gallops. No murmurs ABDOMEN: Soft. Bowel sounds present. lower abdominal tenderness. No organomegaly. No abdominal bruits. Extremities: reveal no edema. No clubbing or cyanosis Neurologically awake, alert, oriented x3 with well-coordinated movements. No focal deficits noted Skin: No rash or skin lesions. Psychiatric: Coperative. Nonsuicidal, Musculoskeletal: No joint swelling or deformity. Normal range of motion. Results CBC & Chem 7: 10/01/24 03:34 10/01/24 03:34 Labs: Abnormal Lab Results - Last 24 Hours (Table) 10/01/24 10/01/24 Range/Units 03:34 03:34 RBC 3.94 L (4.10-5.20) X 10*6/uL Hgb 10.5 L (12.0-15.0) g/dL Hct 34.1 L (37.2-46.3) % MCH 26.6 L (27.0-32.0) pg MCHC 30.8 L (32.0-37.0) g/dL Carbon Dioxide 19.2 L (21.6-31.8) mmol/L BUN/Creatinine Ratio 25.00 H (12.00-20.00) Ratio Glucose 62 L (70-110) mg/dL Calcium 7.9 L (8.7-10.3) mg/dL Microbiology - Last 24 Hours (Table) 09/30/24 08:38 Blood Culture - Preliminary Blood Assessment and Plan Assessment: Acute diverticulitis involving sigmoid colon with possible free air could be related to perforated diverticuli as per CT of the abdomen pelvis. History of chronic constipation and diarrhea intermittently History of vaping Anxiety/depression GI and DVT prophylaxis Plan: Patient will be continued on IV hydration with normal saline. Nothing by mouth. Continue the antibiotics of Zosyn. Repeat CT of the abdomen which was ordered today. Follow-up blood cultures. Continue with pain management and follow-up closely. Further recommendations based on the clinical course.
[2024-10-02] MEDS: SODIUM CHLORIDE 0.9% 1,000 ML IV SCH (03:54)
[2024-10-02 03:56] LABS: Basophils % (A) 0 %; Eosinophils # (A) 0.2 k/uL (0-0.7); Eosinophils % (A) 2 %; HCT 33.7 % (34.0-46.0); Lymphocytes # (A) 1.3 k/uL (1.0-4.8); Lymphocytes % (A) 19 %; MCH 28.3 pg (25.0-35.0); MCHC 33.2 g/dL (31.0-37.0); MCV 85.1 fL (80.0-100.0); Mean Platelet Volume 7.1; Monocytes # (A) 0.5 k/uL (0-1.0); Monocytes % (A) 8 %; Neutrophils # (A) 4.8 k/uL (1.3-7.7); Neutrophils % (A) 69 %; Platelet Count 221 k/uL (150-450); RBC 3.96 m/uL (3.80-5.40); RDW 13.4 % (11.5-15.5)
[2024-10-02 04:04] LABS: African American GFR (CKD) >90 (>60 ml/min/1.73 sqM); Anion Gap 3 mmol/L; Blood Urea Nitrogen 4 mg/dL (7-17); Calcium 8.3 mg/dL (8.4-10.2); Carbon Dioxide 19 mmol/L (22-30); Chloride 110 mmol/L (98-107); Glucose 110 mg/dL (74-99); Non-African American GFR(CKD) >90 (>60 ml/min/1.73 sqM); Potassium 3.5 mmol/L (3.5-5.1); Sodium 132 mmol/L (137-145)
[2024-10-02 04:42] LABS: HGB 11.2 gm/dL (11.4-16.0)
[2024-10-02] MEDS: LACTATED RINGERS 1,000 ML IV SCH (08:08)
--- NOTE | 2024-10-02 10:21 | P.PN ---
Subjective Progress Note Date: 10/02/24 SURGICAL PROGRESS NOTE CHIEF COMPLAINT: Perforated diverticulitis HISTORY OF PRESENT ILLNESS: Patient reports overall feeling better today. She rates her pain about a 3 out of 10. She was able to shower this morning. She is having flatus. Her nausea is better this morning. She had some nausea durin g the night. Afebrile. Mild hypotension improved with IV fluids. WBC 7.0 Hgb 11.2 platelets 221 sodium is 132 potassium 3.5 creatinine 0.66 PHYSICAL EXAM: VITAL SIGNS: Reviewed. GENERAL: Well-developed in no acute distress. ABDOMEN: Soft. Nondistended. Patient is less tender on exam. She is tender suprapubic area and left lower quadrant. NEUROLOGIC: Alert and oriented. Cranial nerves II through XII grossly intact. ASSESSMENT: 1. Acute diverticulitis of the sigmoid colon with microperforation. PLAN: -No surgery planned for today. Continue conservative management -Continue IV antibiotics -Continue pain management -Continue IV fluid -Keep patient n.p.o. -DVT prophylaxis subcu heparin and GI prophylaxis Protonix Physician Stringed Instrument Assembler note has been reviewed by physician. Signing provider agrees with the documented findings, assessment, and plan of care. Objective - Vital Signs Vital signs: Vital Signs Temp 98.3 F 10/02/24 07:23 Pulse 84 10/02/24 07:23 Resp 16 10/02/24 07:23 BP 109/68 10/02/24 07:23 Pulse Ox 97 10/02/24 07:23 FiO2 Intake & Output 10/01/24 10/02/24 10/02/24 18:59 06:59 18:59 Other: Voiding Method Toilet Toilet # Voids 2 - Labs CBC & Chem 7: 10/02/24 03:31 10/02/24 03:31 Labs: Abnormal Lab Results - Last 24 Hours (Table) 10/02/24 10/02/24 Range/Units 03:31 03:31 Hgb 11.2 L D (11.4-16.0) gm/dL Hct 33.7 L (34.0-46.0) % Sodium 132 L (137-145) mmol/L Chloride 110 H (98-107) mmol/L Carbon Dioxide 19 L (22-30) mmol/L BUN 4 L (7-17) mg/dL Glucose 110 H (74-99) mg/dL Calcium 8.3 L (8.4-10.2) mg/dL Microbiology - Last 24 Hours (Table) 09/30/24 08:38 Blood Culture - Preliminary Blood
[2024-10-02] MEDS: ACETAMINOPHEN IV (For NPO) 1,000 MG in EMPTY BAG 1 BAG IVPB SCH (11:06)
--- NOTE | 2024-10-02 14:33 | P.PN ---
Subjective Progress Note Date: 10/02/24 - Reason for Consult Consult date: 10/01/24 Medical management - Chief Complaint Abdominal pain - History of Present Illness Patient is a 49-year-old female with a past medical history of anxiety/depression and history of vaping presents to ER with complaints of abdominal pain since yesterday. Mainly in the lower abdomen and suprapubic area as well as left lower quadrant. Patient does have a history of constipation and diarrhea on and off. Patient also felt nauseous. No episodes of vomiting. Denied any recent illnesses. No recent diarrhea. No prior history of colonoscopy. CT of the abdomen pelvis done in the ER showed there is evidence of mild pneumoperitoneum. There is mild inflammatory changes suggested about the sigmoid colon which reflect diverticulitis. Free air could be related to perfor ated diverticuli although this is difficult to state with certainty. Left ovarian cyst measuring 1.6 cm. Laboratory data showed WBC 11.4 hemoglobin 14.3 and platelets 275 neutrophils 8.8 sodium 135 potassium 4.1 chloride 107 bicarb is 22 BUN 21 0.80 and blood sugar 83 liver enzymes are not elevated lipase 27 ambulates with D5 beta-hCG not detected. Urinalysis is negative for infection. Transvaginal ultrasound showed no evidence of acute process. Endometrium is poorly visualized possibly due to endometrial ablation. Appreciate arterial and venous rectal polyps to the ovaries. Left ovarian dominant follicle. 10/02/2024 Patient is seen in follow-up today admitted under surgery services and is strict n.p.o. with concerns of diverticulitis with microperforation. Patient is maintained on antibiotics and white count is normal and hemoglobin is stable with no active bleeding noted. Patient reports she is feeling very uncomfortable with continued abdominal pain and nauseated. Remains strictly n.p.o. per surgery and strict bowel rest. Patient maintained on gentle IV hydration and will follow-up with repeat labs and replace electrolytes per protocol. Patient is afebrile denies chest pain or shortness of breath. Review of systems: Constitutional: reports of feeling fatigued, no fever, or chills Cardiovascular: No reports of chest pain or palpitations Respiratory: No reports of shortness of breath or cough GI: reports of nausea, no vomiting, no diarrhea, reports significant abdominal pain : No reports of dysuria or retention Neurovascular: No reports of weakness or numbness All medications have been reviewed PHYSICAL EXAMINATION: Patient is lying in the bed , asleep although easily arousable, mild distress, alert and oriented x 3, ill-appearing.. HEENT: Normocephalic. Neck is supple. Pupils reactive. Nostrils clear. Oral cavity is moist. Neck reveals no JVD, carotid bruits, or thyromegaly. CHEST EXAMINATION: Trachea is central. Symmetrical expansion. Lung beltrán clear to auscultation and percussion. CARDIAC: Normal S1, S2 with no gallops. No murmurs ABDOMEN: Soft. Bowel sounds present. lower abdominal tenderness. No organomegaly. No abdominal bruits. Extremities: reveal no edema. No clubbing or cyanosis Neurologically awake, alert, oriented x3 with well-coordinated movements. No focal deficits noted Skin: No rash or skin lesions. Psychiatric: Cooperative. Non-suicidal, Musculoskeletal: No joint swelling or deformity. Normal range of motion. Assessment: Acute diverticulitis involving sigmoid colon with possible free air could be re lated to perforated diverticuli as per CT of the abdomen pelvis. History of chronic constipation and diarrhea intermittently History of vaping Anxiety/depression GI and DVT prophylaxis Full code Plan: Patient will be continued on IV hydration with normal saline. Strictly nothing by mouth per surgery. Continue the antibiotics in the form of Zosyn. White count is normal and will follow-up on repeat labs. Patient remains afebrile. Blood cultures thus far pending. Patient had repeat CT continuing to show microperforation and per surgery patient is to remain strictly n.p.o. not even ice chips until cleared by surgery to initiate any type of diet Continue with pain management and follow-up closely. Further recommendations based on the clinical course. Thank you kindly for this consultation. We will continue to follow with general surgery during hospitalization. The impression and plan of care has been dictated by Grace Chapman, Nurse Practitioner as directed. Dr. Eloisa MD I have performed a history and examination and MDM of this patient, discussed the same with the dictator, and agree with the dictator's assessment and plan as written ,documented as a scribe. Based on total visit time, I have performed more than 50% of the visit. Objective - Vital Signs Vital signs: Vital Signs Temp 98.3 F 10/02/24 07:23 Pulse 84 10/02/24 07:23 Resp 16 10/02/24 07:23 BP 109/68 10/02/24 07:23 Pulse Ox 97 10/02/24 07:23 FiO2 Intake & Output 10/01/24 10/02/24 10/02/24 18:59 06:59 18:59 Other: Voiding Method Toilet Toilet # Voids 2 - Labs CBC & Chem 7: 10/02/24 03:31 10/02/24 03:31 Labs: Abnormal Lab Results - Last 24 Hours (Table) 10/02/24 10/02/24 Range/Units 03:31 03:31 Hgb 11.2 L D (11.4-16.0) gm/dL Hct 33.7 L (34.0-46.0) % Sodium 132 L (137-145) mmol/L Chloride 110 H (98-107) mmol/L Carbon Dioxide 19 L (22-30) mmol/L BUN 4 L (7-17) mg/dL Glucose 110 H (74-99) mg/dL Calcium 8.3 L (8.4-10.2) mg/dL Microbiology - Last 24 Hours (Table) 09/30/24 08:38 Blood Culture - Preliminary Blood
[2024-10-02] MEDS ORDERED: ONDANSETRON 4 MG/2 ML VIAL IVP PRN (16:56)
[2024-10-02] MEDS: ONDANSETRON 4 MG/2 ML VIAL IVP STA (17:05)
[2024-10-02] MEDS: PANTOPRAZOLE 40 MG/10 ML VIAL IVP SCH (21:00)
[2024-10-03] MEDS ORDERED: PROMETHAZINE 25 MG TAB PO STA (03:52)
[2024-10-03] MEDS: PROMETHAZINE 25 MG TAB PO STA (04:12)
--- NOTE | 2024-10-03 10:31 | P.PN ---
Subjective Progress Note Date: 10/03/24 NAEON. No F/C. No SOB or CP. Admits to flatus and small non-bloody BM. No worsening abdominal pain.Ambulatory and voiding. Objective - Vital Signs Vital signs: Vital Signs Temp 98.4 F 10/03/24 07:45 Pulse 82 10/03/24 07:45 Resp 17 10/03/24 07:45 BP 95/66 10/03/24 07:45 Pulse Ox 100 10/03/24 07:45 FiO2 Intake & Output 10/02/24 10/03/24 10/03/24 18:59 06:59 18:59 Other: # Voids 3 4 - Exam Gen: AxO,NAD Pulm: non-labored respirations Abd: soft, tender to palpation in LLQ. Non-distended Extrem: no edema seen - Labs CBC & Chem 7: 10/02/24 03:31 10/02/24 03:31 Labs: Microbiology - Last 24 Hours (Table) 09/30/24 08:38 Blood Culture - Preliminary Blood Assessment and Plan Assessment: Patient is a 49 year old female who presents with acute diverticulitits with microperforation Plan: -Strict NPO -IVF hydration -PRN pain and nausea control -IV abx -Encourage ambulation -DVT/Gi PPx -No acute surgical intervention Rodri Rivas M.D. General Surgery
[2024-10-03 10:56] LABS: Basophils # (A) 0.04 X 10*3/uL (0.00-0.10); Basophils % (A) 0.6 %; Eosinophils # (A) 0.15 X 10*3/uL (0.04-0.35); Eosinophils % (A) 2.1 %; HCT 32.5 % (37.2-46.3); HGB 10.3 g/dL (12.0-15.0); Lymphocytes # (A) 1.52 X 10*3/uL (0.90-5.00); Lymphocytes % (A) 21.7 %; MCH 26.4 pg (27.0-32.0); MCHC 31.7 g/dL (32.0-37.0); MCV 83.3 FL (80.0-97.0); Mean Platelet Volume 10.4 FL (9.5-12.2); Monocytes # (A) 0.56 X 10*3/uL (0.20-1.00); NRBC Per 100 WBC 0 X 10*3/uL (0.00-0.01); Neutrophils % (A) 67.3 %; Platelet Count 227 X 10*3/uL (140-440); RDW 13.8 % (11.5-14.5); WBC 6.99 X 10*3/uL (4.50-10.00)
[2024-10-03 11:57] LABS: BUN/Creat Ratio 9.17 Ratio (12.00-20.00); Blood Urea Nitrogen 5.5 mg/dL (9.0-27.0); Carbon Dioxide 15.3 mmol/L (21.6-31.8); Chloride 109 mmol/L (96-109); Glucose 62 mg/dL (70-110); Potassium 3.8 mmol/L (3.5-5.5); Sodium 138 mmol/L (135-145)
[2024-10-03] MEDS: ACETAMINOPHEN IV (For NPO) 1,000 MG in EMPTY BAG 1 BAG IVPB PRN (14:40)
--- NOTE | 2024-10-04 08:12 | P.PN ---
Subjective Progress Note Date: 10/03/24 - Reason for Consult Consult date: 10/01/24 Medical management - Chief Complaint Abdominal pain - History of Present Illness Patient is a 49-year-old female with a past medical history of anxiety/depression and history of vaping presents to ER with complaints of abdominal pain since yesterday. Mainly in the lower abdomen and suprapubic area as well as left lower quadrant. Patient does have a history of constipation and diarrhea on and off. Patient also felt nauseous. No episodes of vomiting. Denied any recent illnesses. No recent diarrhea. No prior history of colonoscopy. CT of the abdomen pelvis done in the ER showed there is evidence of mild pneumoperitoneum. There is mild inflammatory changes suggested about the sigmoid colon which reflect diverticulitis. Free air could be related to perfor ated diverticuli although this is difficult to state with certainty. Left ovarian cyst measuring 1.6 cm. Laboratory data showed WBC 11.4 hemoglobin 14.3 and platelets 275 neutrophils 8.8 sodium 135 potassium 4.1 chloride 107 bicarb is 22 BUN 21 0.80 and blood sugar 83 liver enzymes are not elevated lipase 27 ambulates with D5 beta-hCG not detected. Urinalysis is negative for infection. Transvaginal ultrasound showed no evidence of acute process. Endometrium is poorly visualized possibly due to endometrial ablation. Appreciate arterial and venous rectal polyps to the ovaries. Left ovarian dominant follicle. 10/02/2024 Patient is seen in follow-up today admitted under surgery services and is strict n.p.o. with concerns of diverticulitis with microperforation. Patient is maintained on antibiotics and white count is normal and hemoglobin is stable with no active bleeding noted. Patient reports she is feeling very uncomfortable with continued abdominal pain and nauseated. Remains strictly n.p.o. per surgery and strict bowel rest. Patient maintained on gentle IV hydration and will follow-up with repeat labs and replace electrolytes per protocol. Patient is afebrile denies chest pain or shortness of breath. 10/03/2024 Patient is seen and evaluated in follow-up complete n.p.o. per surgery maintained on gentle hydration with no acute overnight issues. Pain is controlled on current regimen and will continue IV Tylenol as nursing staff reports her pain is controlled on this and is strict n.p.o. per surgery. Patient will continue on IV antibiotics and will discuss further with general surgery regarding treatment plan moving forward. Review of systems: Constitutional: reports of feeling fatigued, no fever, or chills Cardiovascular: No reports of chest pain or palpitations Respiratory: No reports of shortness of breath or cough GI: reports of nausea, no vomiting, no diarrhea, reports significant abdominal pain : No reports of dysuria or retention Neurovascular: No reports of weakness or numbness All medications have been reviewed PHYSICAL EXAMINATION: Patient is lying in the bed , asleep although easily arousable, mild distress, alert and oriented x 3, ill-appearing.. HEENT: Normocephalic. Neck is supple. Pupils reactive. Nostrils clear. Oral cavity is moist. Neck reveals no JVD, carotid bruits, or thyromegaly. CHEST EXAMINATION: Trachea is central. Symmetrical expansion. Lung beltrán clear to auscultation and percussion. CARDIAC: Normal S1, S2 with no gallops. No murmurs ABDOMEN: Soft. Bowel sounds present. lower abdominal tenderness. No organomegaly. No abdominal bruits. Extremities: reveal no edema. No clubbing or cyanosis Neurologically awake, alert, oriented x3 with well-coordinated movements. No focal deficits noted Skin: No rash or skin lesions. Psychiatric: Cooperative. Non-suicidal, Musculoskeletal: No joint swelling or deformity. Normal range of motion. Assessment: Acute diverticulitis involving sigmoid colon with possible free air could be related to perforated diverticuli as per CT of the abdomen pelvis. Currently on conservative management with bowel rest and antibiotics History of chronic constipation and diarrhea intermittently History of vaping Anxiety/depression GI and DVT prophylaxis Full code Plan: Patient will be continued on IV hydration with normal saline. Strictly nothing by mouth per surgery. Continue the antibiotics in the form of Zosyn. White count is normal and will follow-up on repeat labs. Patient remains afebrile. Blood cultures are negative. Patient had repeat CT continuing to show microperforation and per surgery patient is to remain strictly n.p.o. not even ice chips until cleared by surgery to initiate any type of diet Continue with pain management and follow-up closely. Further recommendations based on the clinical course. Thank you kindly for this consultation. We will continue to follow with general surgery during hospitalization. The impression and plan of care has been dictated by Grace Chapman, Nurse Practitioner as directed. Dr. Eloisa MD I have performed a history and examination and MDM of this patient, discussed the same with the dictator, and agree with the dictator's assessment and plan as written ,documented as a scribe. Based on total visit time, I have performed more than 50% of the visit. Objective - Vital Signs Vital signs: Vital Signs Temp 98.2 F 10/04/24 01:20 Pulse 89 10/04/24 01:20 Resp 17 10/04/24 01:20 BP 108/72 10/04/24 01:20 Pulse Ox 99 10/04/24 01:20 FiO2 Intake & Output 10/03/24 10/04/24 10/04/24 18:59 06:59 18:59 Other: # Voids 4 - Labs CBC & Chem 7: 10/03/24 03:37 10/03/24 03:37 Labs: Abnormal Lab Results - Last 24 Hours (Table) 10/03/24 10/03/24 Range/Units 03:37 03:37 RBC 3.90 L (4.10-5.20) X 10*6/uL Hgb 10.3 L (12.0-15.0) g/dL Hct 32.5 L (37.2-46.3) % MCH 26.4 L (27.0-32.0) pg MCHC 31.7 L (32.0-37.0) g/dL Carbon Dioxide 15.3 L (21.6-31.8) mmol/L Anion Gap 13.70 H (4.00-12.00) mmol/L BUN 5.5 L (9.0-27.0) mg/dL BUN/Creatinine Ratio 9.17 L (12.00-20.00) Ratio Glucose 62 L (70-110) mg/dL Calcium 8.0 L (8.7-10.3) mg/dL Microbiology - Last 24 Hours (Table) 09/30/24 08:38 Blood Culture - Preliminary Blood
[2024-10-04] MEDS: ACETAMINOPHEN IV (For NPO) 1,000 MG in EMPTY BAG 1 BAG IVPB PRN (08:53)
[2024-10-04 09:27] LABS: Basophils # (A) 0.05 X 10*3/uL (0.00-0.10); Basophils % (A) 0.8 %; Eosinophils # (A) 0.15 X 10*3/uL (0.04-0.35); Eosinophils % (A) 2.5 %; HCT 36.5 % (37.2-46.3); HGB 11.3 g/dL (12.0-15.0); Lymphocytes # (A) 1.47 X 10*3/uL (0.90-5.00); Lymphocytes % (A) 24.7 %; MCH 26.7 pg (27.0-32.0); MCV 86.3 FL (80.0-97.0); Mean Platelet Volume 10.2 FL (9.5-12.2); Monocytes # (A) 0.41 X 10*3/uL (0.20-1.00); Monocytes % (A) 6.9 %; NRBC Per 100 WBC 0 X 10*3/uL (0.00-0.01); Neutrophils # (A) 3.85 X 10*3/uL (1.80-7.70); Neutrophils % (A) 64.9 %; Platelet Count 270 X 10*3/uL (140-440); RBC 4.23 X 10*6/uL (4.10-5.20); RDW 13.9 % (11.5-14.5); WBC 5.94 X 10*3/uL (4.50-10.00)
[2024-10-04 12:21] LABS: BUN/Creat Ratio 5.14 Ratio (12.00-20.00); Blood Urea Nitrogen 3.6 mg/dL (9.0-27.0); Calcium 8.3 mg/dL (8.7-10.3); Carbon Dioxide 11.4 mmol/L (21.6-31.8); Chloride 107 mmol/L (96-109); Glucose 58 mg/dL (70-110); Potassium 4.1 mmol/L (3.5-5.5); Sodium 136 mmol/L (135-145)
--- NOTE | 2024-10-04 14:10 | P.PN ---
Subjective Progress Note Date: 10/04/24 CHIEF COMPLAINT: Diverticulitis, perforated HISTORY OF PRESENT ILLNESS: The patient is a 49-year-old female presents with diverticulitis, perforated. Patient reports having similar event 1 year ago exa ctly this timeframe where was confused for fibroids. Today, she reports she feels so much better. Family is at bedside. She does report potentially eating pistachios within a day of the event of her abdominal pain. She also reports family history of brother with Crohn's disease. She denies any recent colonoscopies. She did have Cologuard. ROS: No reports of nausea and vomiting. No bowel movements. No fevers or chills. No new chest pain. No productive sputum PHYSICAL EXAM: VITAL SIGNS: Reviewed CONSTITUTIONAL: Well developed and in no acute distress. EYES: Conjuctivae without sclera icterus. Extraocular movements grossly intact. HEAD, EARS, NOSE, THROAT: Moist buccal mucosa. Head is atraumatic, normocephalic. Hears conversational speech. No nasal drainage. RESPIRATORY: Non-labored respirations and equal bilateral excursions. CARDIOVASCULAR: Palpable 2+ radial pulses. ABDOMEN: No diffuse peritonitis. Minimal left lower quadrant abdominal pain. MUSCULOSKELETAL: No gross deformity of the lower extremities noted. No clubbing. No cyanosis. SKIN: Good skin turgor. Well perfused. NEUROLOGIC: Cranial nerves II through XII grossly intact. No focal or lateralizing signs. PSYCH: Appropriate affect. Alert and oriented to person, place and time. CLINICAL LABS: Reviewed. WBC normal. STUDIES: CT of the abdomen pelvis independently reviewed from 10/01/2024 demo nstrates moderate pneumoperitoneum. Diverticulitis of the sigmoid colon. Presence of fibroid intraluminal in the uterus found. This is my independent interpretation. ASSESSMENT: 1. Perforated diverticulitis with moderate pneumoperitoneum PLAN: 1. Patient has improved with strict n.p.o. diet including IV antibiotics. Due to her presentation, may benefit from infectious disease consultation as she has azithromycin allergy for which I consulted. 2. Continue hospitalization and continue n.p.o. status. Objective - Vital Signs Vital signs: Vital Signs Temp 98.0 F 10/04/24 13:06 Pulse 85 10/04/24 13:06 Resp 19 10/04/24 13:06 BP 108/73 10/04/24 13:06 Pulse Ox 100 10/04/24 13:06 FiO2 Intake & Output 10/03/24 10/04/24 10/04/24 18:59 06:59 18:59 Other: Voiding Method Toilet # Voids 4 - Labs CBC & Chem 7: 10/04/24 06:08 10/04/24 06:08 Labs: Abnormal Lab Results - Last 24 Hours (Table) 10/04/24 10/04/24 Range/Units 06:08 06:08 Hgb 11.3 L (12.0-15.0) g/dL Hct 36.5 L (37.2-46.3) % MCH 26.7 L (27.0-32.0) pg MCHC 31.0 L (32.0-37.0) g/dL Carbon Dioxide 11.4 L (21.6-31.8) mmol/L Anion Gap 17.60 H (4.00-12.00) mmol/L BUN 3.6 L (9.0-27.0) mg/dL BUN/Creatinine Ratio 5.14 L (12.00-20.00) Ratio Glucose 58 L (70-110) mg/dL Calcium 8.3 L (8.7-10.3) mg/dL Microbiology - Last 24 Hours (Table) 09/30/24 08:38 Blood Culture - Preliminary Blood
--- NOTE | 2024-10-04 20:34 | P.PN ---
Subjective Progress Note Date: 10/04/24 - Reason for Consult Consult date: 10/01/24 Medical management - Chief Complaint Abdominal pain - History of Present Illness Patient is a 49-year-old female with a past medical history of anxiety/depression and history of vaping presents to ER with complaints of abdominal pain since yesterday. Mainly in the lower abdomen and suprapubic area as well as left lower quadrant. Patient does have a history of constipation and diarrhea on and off. Patient also felt nauseous. No episodes of vomiting. Denied any recent illnesses. No recent diarrhea. No prior history of colonoscopy. CT of the abdomen pelvis done in the ER showed there is evidence of mild pneumoperitoneum. There is mild inflammatory changes suggested about the sigmoid colon which reflect diverticulitis. Free air could be related to perfor ated diverticuli although this is difficult to state with certainty. Left ovarian cyst measuring 1.6 cm. Laboratory data showed WBC 11.4 hemoglobin 14.3 and platelets 275 neutrophils 8.8 sodium 135 potassium 4.1 chloride 107 bicarb is 22 BUN 21 0.80 and blood sugar 83 liver enzymes are not elevated lipase 27 ambulates with D5 beta-hCG not detected. Urinalysis is negative for infection. Transvaginal ultrasound showed no evidence of acute process. Endometrium is poorly visualized possibly due to endometrial ablation. Appreciate arterial and venous rectal polyps to the ovaries. Left ovarian dominant follicle. 10/02/2024 Patient is seen in follow-up today admitted under surgery services and is strict n.p.o. with concerns of diverticulitis with microperforation. Patient is maintained on antibiotics and white count is normal and hemoglobin is stable with no active bleeding noted. Patient reports she is feeling very uncomfortable with continued abdominal pain and nauseated. Remains strictly n.p.o. per surgery and strict bowel rest. Patient maintained on gentle IV hydration and will follow-up with repeat labs and replace electrolytes per protocol. Patient is afebrile denies chest pain or shortness of breath. 10/03/2024 Patient is seen and evaluated in follow-up complete n.p.o. per surgery maintained on gentle hydration with no acute overnight issues. Pain is controlled on current regimen and will continue IV Tylenol as nursing staff reports her pain is controlled on this and is strict n.p.o. per surgery. Patient will continue on IV antibiotics and will discuss further with general surgery regarding treatment plan moving forward. 10/04/2024 Patient is seen in follow-up today reports to passing minimal gas and per surgery did have a bloody bowel movement, hemoglobin is stable. Patient continues to be n.p.o. and maintained on antibiotics. White count is normalized and patient is afebrile. Review of systems: Constitutional: reports of feeling fatigued, no fever, or chills Cardiovascular: No reports of chest pain or palpitations Respiratory: No reports of shortness of breath or cough GI: reports of nausea, no vomiting, no diarrhea, reports significant abdominal pain : No reports of dysuria or retention Neurovascular: No reports of weakness or numbness All medications have been reviewed PHYSICAL EXAMINATION: Patient is lying in the bed , asleep although easily arousable, mild distress, alert and oriented x 3, ill-appearing.. HEENT: Normocephalic. Neck is supple. Pupils reactive. Nostrils clear. Oral cavity is moist. Neck reveals no JVD, carotid bruits, or thyromegaly. CHEST EXAMINATION: Trachea is central. Symmetrical expansion. Lung beltrán clear to auscultation and percussion. CARDIAC: Normal S1, S2 with no gallops. No murmurs ABDOMEN: Soft. Bowel sounds present. lower abdominal tenderness. No organomegaly. No abdominal bruits. Extremities: reveal no edema. No clubbing or cyanosis Neurologically awake, alert, oriented x3 with well-coordinated movements. No focal deficits noted Skin: No rash or skin lesions. Psychiatric: Cooperative. Non-suicidal, Musculoskeletal: No joint swelling or deformity. Normal range of motion. Assessment: Acute diverticulitis involving sigmoid colon with possible free air could be related to perforated diverticuli as per CT of the abdomen pelvis. Currently on conservative management with bowel rest and antibiotics History of chronic constipation and diarrhea intermittently History of vaping Anxiety/depression GI and DVT prophylaxis Full code Plan: Patient will be continued on IV hydration with normal saline. Strictly nothing by mouth per surgery. Continue the antibiotics in the form of Zosyn. White count is normal and will follow-up on repeat labs. Patient remains afebrile. Blood cultures are negative. Patient had repeat CT continuing to show microperforation and per surgery patient is to remain strictly n.p.o. not even ice chips until cleared by surgery to initiate any type of diet Continue with pain management and follow-up closely. Further recommendations b ased on the clinical course. Thank you kindly for this consultation. We will continue to follow with general surgery during hospitalization. The impression and plan of care has been dictated by Grace Chapman, Nurse Practitioner as directed. Dr. Eloisa MD I have performed a history and examination and MDM of this patient, discussed the same with the dictator, and agree with the dictator's assessment and plan as written ,documented as a scribe. Based on total visit time, I have performed more than 50% of the visit. Objective - Vital Signs Vital signs: Vital Signs Temp 98.2 F 10/04/24 01:20 Pulse 89 10/04/24 01:20 Resp 17 10/04/24 01:20 BP 108/72 10/04/24 01:20 Pulse Ox 99 10/04/24 01:20 FiO2 Intake & Output 10/03/24 10/04/24 10/04/24 18:59 06:59 18:59 Other: # Voids 4 - Labs CBC & Chem 7: 10/04/24 06:08 10/04/24 06:08 Labs: Abnormal Lab Results - Last 24 Hours (Table) 10/03/24 10/03/24 Range/Units 03:37 03:37 RBC 3.90 L (4.10-5.20) X 10*6/uL Hgb 10.3 L (12.0-15.0) g/dL Hct 32.5 L (37.2-46.3) % MCH 26.4 L (27.0-32.0) pg MCHC 31.7 L (32.0-37.0) g/dL Carbon Dioxide 15.3 L (21.6-31.8) mmol/L Anion Gap 13.70 H (4.00-12.00) mmol/L BUN 5.5 L (9.0-27.0) mg/dL BUN/Creatinine Ratio 9.17 L (12.00-20.00) Ratio Glucose 62 L (70-110) mg/dL Calcium 8.0 L (8.7-10.3) mg/dL Microbiology - Last 24 Hours (Table) 09/30/24 08:38 Blood Culture - Preliminary Blood
[2024-10-05 01:41] VITALS: RESP 17
[2024-10-05 09:01] VITALS: BP 106/71; PULSE 67; TEMP 98.7
--- NOTE | 2024-10-05 11:04 | P.PN ---
Subjective Progress Note Date: 10/05/24 SURGICAL PROGRESS NOTE CHIEF COMPLAINT: Perforated diverticulitis HISTORY OF PRESENT ILLNESS: Patient reports her pain has improved. She has minimal discomfort left lower quadrant. She feels ready to eat. She is having small bowel movements. Denies any difficulty urinating. She is able to move around easier. Afebrile. WBC 5.94 PHYSICAL EXAM: VITAL SIGNS: Reviewed. GENERAL: Well-developed in no acute distress. ABDOMEN: Soft. Nondistended. Minimal discomfort with palpation left lower quadrant NEUROLOGIC: Alert and oriented. Cranial nerves II through XII grossly intact. ASSESSMENT: 1. Acute diverticulitis of the sigmoid colon with microperforation. PLAN: -Advance diet to clear liquids -Continue IV antibiotics -Awaiting ID recommendations for discharge antibiotics -Continue pain management -DVT prophylaxis subcu heparin and GI prophylaxis Protonix Physician [employer] Manager note has been reviewed by physician. Signing provider agrees with the documented findings, assessment, and plan of care. Objective - Vital Signs Vital signs: Vital Signs Temp 98.7 F 10/05/24 07:23 Pulse 67 10/05/24 07:23 Resp 17 10/05/24 07:23 BP 106/71 10/05/24 07:23 Pulse Ox 100 10/05/24 07:23 FiO2 Intake & Output 10/04/24 10/05/24 10/05/24 18:59 06:59 18:59 Other: Voiding Method Toilet Toilet # Voids 15 4 # Bowel Movements 0 - Labs CBC & Chem 7: 10/04/24 06:08 10/04/24 06:08 Labs: Abnormal Lab Results - Last 24 Hours (Table) 10/04/24 Range/Units 06:08 Carbon Dioxide 11.4 L (21.6-31.8) mmol/L Anion Gap 17.60 H (4.00-12.00) mmol/L BUN 3.6 L (9.0-27.0) mg/dL BUN/Creatinine Ratio 5.14 L (12.00-20.00) Ratio Glucose 58 L (70-110) mg/dL Calcium 8.3 L (8.7-10.3) mg/dL
--- NOTE | 2024-10-05 12:39 | P.DS ---
Providers Date of admission: 09/30/24 08:38 Expected date of discharge: 10/05/24 Attending physician: Jelani Howell Consults: 09/30/24 12:47 Consult Physician Routine Consulting Provider: Sara Santillan Consult Reason/Comments: medical management Do you want consulting provider notified?: Yes 10/04/24 14:05 Consult Physician Routine Consulting Provider: Brooke Robertson Consult Reason/Comments: Antibiotic managment perforate diverticulitis Do you want consulting provider notified?: Yes Primary care physician: Kristina Garner Hospital Course: Discharge diagnosis 1. Acute diverticulitis of the sigmoid colon with microperforation. Hospital course This is a 49-year-old female who presented to hospital with complaints of abdominal pain that started suddenly. She reports the pain was located in the suprapubic and left lower quadrant area. She had a CAT scan of the abdomen that reported mild pneumoperitoneum possibly due to perforated diverticulitis. Patient was made n.p.o. and started on IV antibiotics. She did have worsening of her symptoms a repeat CAT scan was completed that had reported a mild interval increase in the pneumoperitoneum. Dr. Howell did have discussion at that time with patient about surgical intervention. Patient wanted to wait until the next morning to make a decision. Patient's symptoms improved the morning of 10/02. White count was normal. And she was feeling better. The patient was then managed conservatively for her perforated diverticulitis. Patient symptoms have continued to improve. White count is normal. She is afe brile. Pain has improved she is tolerating diet. She is having bowel movements. She is has been up and ambulating. She will be discharged on clear liquid diet and advance as tolerated. Patient will be discharged on oral antibiotics. Patient is stable for discharge. Please refer to chart for any further details. Physician Box Car Bracer note has been reviewed by physician. Signing provider agrees with the documented findings, assessment, and plan of care. Patient Condition at Discharge: Stable Plan - Discharge Summary Discharge Rx Participant: Yes New Discharge Prescriptions: New Levofloxacin [Levaquin] 500 mg PO DAILY 10 Days #10 tab metroNIDAZOLE [Flagyl] 500 mg PO TID 10 Days #30 tab Continue buPROPion XL [Wellbutrin XL] 150 mg PO DAILY Dextroamphetamine/Amphetamine [Adderall] 20 mg PO DAILY Discharge Medication List Dextroamphetamine/Amphetamine [Adderall] 20 mg PO DAILY 09/30/24 [History] buPROPion XL [Wellbutrin XL] 150 mg PO DAILY 09/30/24 [History] Levofloxacin [Levaquin] 500 mg PO DAILY 10 Days #10 tab 10/05/24 [Rx] metroNIDAZOLE [Flagyl] 500 mg PO TID 10 Days #30 tab 10/05/24 [Rx] Follow up Appointment(s)/Referral(s): Kristina Garner DO [Primary Care Provider] - 1-2 days Jelani Howell MD [STAFF PHYSICIAN] - 10/13/24 Activity/Diet/Wound Care/Special Instructions: Diet: clear to full liquid diet today and advance diet as tolerated over the next 3 days Use Tylenol [id number] as needed for pain Recommend Benefiber 2 tablespoons daily to prevent constipation Discharge Disposition: HOME SELF-CARE
== END 2024-10-05 14:18 | disposition home or self-care (01) | DRG 392 ==
LOC: EC 03:40 → 4SSUR 08:38
PROVIDERS: ADMIT Surgery; ATTEND Surgery
DX: K57.20 Diverticulitis of large intestine with perforation and abscess without bleeding (principal); F41.9 Anxiety disorder, unspecified; K59.09 Other constipation; K62.1 Rectal polyp; N83.202 Unspecified ovarian cyst, left side; F32.A Depression, unspecified; Z79.899 Other long term (current) drug therapy; Z90.49 Acquired absence of other specified parts of digestive tract; Z88.1 Allergy status to other antibiotic agents
CPT/HCPCS: 36415; 74177; 76830; 76856; 80048; 80053; 81003; 82150; 83605; 83690; 84703; 85025; 85610; 85730; 87040; 93975; 96361; 96365; 96372; 96375; 96376; 99285

== ENCOUNTER 2024-10-06 20:10 | Inpatient (IN) | payer OTHER ==
--- NOTE | 2024-10-06 20:28 | ED ---
General Adult HPI - General Chief complaint: Abdominal Pain Stated complaint: Abdominal Pain, Perforated Colon Time Seen by Provider: 10/06/24 20:25 Source: patient Mode of arrival: ambulatory Limitations: no limitations - History of Present Illness Initial comments: Patient presents to the ED with her for evaluation. Patient was recently discharged from the hospital (yesterday) after being admitted for abdominal pain with pneumoperitoneum seen on CT imaging. It was thought that the patient's pneumoperitoneum was due to a ruptured sigmoid diverticulum. Per patient, her symptoms were improving at the time of discharge, and she was discharged home on oral antibiotics. Patient states that her pain has become worse today, and she states that she has been quite nauseated today as well. Patient states that her pain is mainly in her suprapubic/left lower quadrant abdomen. Patient denies trauma or injury, fever or chills, headache, chest pain, dyspnea, palpitations, dizziness, vomiting, diarrhea constipation, bloody or melanotic stool, dysuria/hematuria/urinary frequency/urinary symptoms, decreased urine output, or any other symptoms or complaints. Patient states that she is only taken Tylenol today for her pain. - Related Data Home Medications Medication Instructions Recorded Confirmed Dextroamphetamine/Amphetamine 20 mg PO DAILY 09/30/24 09/30/24 [Adderall] buPROPion XL [Wellbutrin XL] 150 mg PO DAILY 09/30/24 09/30/24 Previous Rx's Medication Instructions Recorded Levofloxacin [Levaquin] 500 mg PO DAILY 10 Days #10 tab 10/05/24 metroNIDAZOLE [Flagyl] 500 mg PO TID 10 Days #30 tab 10/05/24 Allergies Allergy/AdvReac Type Severity Reaction Status Date / Time azithromycin Allergy Nausea & Verified 10/06/24 20:19 Vomiting & Diarrhea Review of Systems ROS Statement: Those systems with pertinent positive or pertinent negative responses have been documented in the HPI. ROS Other: All systems not noted in ROS Statement are negative. Past Medical History Past Medical History: No Reported History Additional Past Medical History / Comment(s): diverticulitis History of Any Multi-Drug Resistant Organisms: None Reported Past Surgical History: Adenoidectomy, Cholecystectomy, Tonsillectomy Past Psychological History: Anxiety, Depression Smoking Status: Vaper Past Alcohol Use History: Rare Past Drug Use History: None Reported General Exam Limitations: no limitations General appearance: alert, in no apparent distress Head exam: Present: atraumatic ENT exam: Present: mucous membranes moist Neck exam: Present: other (Trachea is in midline) Respiratory exam: Present: normal lung sounds bilaterally. Absent: respiratory distress, wheezes, rales, rhonchi, stridor Cardiovascular Exam: Present: normal rhythm, tachycardia, normal heart sounds, other (Normal radial pulses bilaterally) GI/Abdominal exam: Present: soft, normal bowel sounds, other (Moderate suprapubic and left lower quadrant abdominal tenderness). Absent: distended, guarding, rebound Extremities exam: Absent: tenderness, pedal edema, calf tenderness Back exam: Absent: CVA tenderness (R), CVA tenderness (L) Neurological exam: Present: alert, oriented X3 Skin exam: Present: warm, dry, normal color Course Vital Signs 10/06/24 10/06/24 10/06/24 20:16 21:35 23:18 Temperature 98.8 F Pulse Rate 138 H 107 H 102 H Respiratory 18 18 16 Rate Blood Pressure 92/67 119/89 126/83 O2 Sat by Pulse 100 98 98 Oximetry - Reevaluation(s) Reevaluation #1: 10/06/24 22:02 Patient states that her pain and nausea have improved with ED treatment. Patient and are aware the patient's test results, and they both agree with hospital admission at this time. Patient denies development of any new symptoms while in the ED. 10/06/24 23:21 Multiple attempts have been made to contact SMITHA Chapman for admission without response yet. Dr. Sharp (ED physician) aware of the patient's case, and he will discuss with SMITHA Chapman once she calls back. Admission and general surgery consultation orders have been placed. Medical Decision Making - Medical Decision Making Was pt. sent in by a medical professional or institution (, PA, ANALYTICAL CONSULTANT, urgent care, hospital, or alf...) When possible be specific @ -No Did you speak to anyone other than the patient for history (EMS, parent, family, police, friend...)? What history was obtained from this source @ -No Did you review nursing and triage notes (agree or disagree)? Why? @ -I reviewed and agree with nursing and triage notes Were old charts reviewed (outside hosp., previous admission, EMS record, old EKG, old radiological studies, urgent care reports/EKG's, alf records)? Report findings @ -No old charts were reviewed Differential Diagnosis (chest pain, altered mental status, abdominal pain women, abdominal pain men, vaginal bleeding, weakness, fever, dyspnea, syncope, headache, dizziness, GI bleed, back pain, seizure, CVA, palpatations, mental health, musculoskeletal)? @ -Diverticulitis, colitis, enteritis, gastroenteritis, ischemic bowel, perforated viscus, abscess, peritonitis, cystitis, UTI, pancreatitis, hepatitis, biliary disease, this is not meant to be a complete list. EKG interpreted by me (3pts min.). @ -None done X-rays interpreted by me (1pt min.). @ -None done CT interpreted by me (1pt min.). @ -CT abdomen/pelvis with IV contrast was reviewed myself and shows findings consistent with perforated sigmoid diverticulitis with abscess formation. I agree with the radiologist's interpretation as above. U/S interpreted by me (1pt. min.). @ -None done What testing was considered but not performed or refused? (CT, X-rays, U/S, labs)? Why? @ -None What meds were considered but not given or refused? Why? @ -None Did you discuss the management of the patient with other professionals (professionals i.e. , PA, ANALYTICAL CONSULTANT, lab, RT, psych nurse, manager social work, canary raiser, teacher, foreign policy officer, case manager specialist)? Give summary @ -As above. Was smoking cessation discussed for >3mins.? @ -No Was critical care preformed (if so, how long)? @ -No Were there social determinants of health that impacted care today? How? (Homelessness, low income, unemployed, alcoholism, drug addiction, transportation, low edu. Level, literacy, decrease access to med. care, long term, re hab)? @ -No Was there de-escalation of care discussed even if they declined (Discuss DNR or withdrawal of care, Hospice)? DNR status @ -No What co-morbidities impacted this encounter? (DM, HTN, Smoking, COPD, CAD, Cancer, CVA, ARF, Chemo, Hep., AIDS, mental health diagnosis, sleep apnea, morbid obesity)? @ -None Was patient admitted / discharged? Hospital course, mention meds given and route, prescriptions, significant lab abnormalities, going to OR and other pertinent info. @ -Patient is noted to have moderate suprapubic/left lower quadrant abdominal tenderness on examination. Patient has no guarding or rebound tenderness at this time. Patient's white cell count has elevated to 18.3. The rest of the patient's labs are fairly unremarkable. CT imaging demonstrates findings of perforated sigmoid diverticulitis with abscess formation. Patient has been treated with a dose of IV Zosyn and IV analgesics in the ED. Will admit the patient to the hospital for continued IV antibiotic treatment and general surgery consultation/evaluation/management. Patient and agree with this plan. Undiagnosed new problem with uncertain prognosis? @ -No Drug Therapy requiring intensive monitoring for toxicity (Heparin, Nitro, Insulin, Cardizem)? @ -No Were any procedures done? @ -No Diagnosis/symptom? @ -Abdominal pain, perforated sigmoid diverticulitis with abscess formation Acute, or Chronic, or Acute on Chronic? @ -Acute Uncomplicated (without systemic symptoms) or Complicated (systemic symptoms)? @ -Default Side effects of treatment? @ -No Exacerbation, Progression, or Severe Exacerbation? @ -No Poses a threat to life or bodily function? How? (Chest pain, [place], [place], pneumonia, PE, COPD, DKA, ARF, appy, cholecystitis, CVA, Diverticulitis, Homicidal, Suicidal, threat to staff... and all critical care pts) @ -No - Lab Data Result diagrams: 10/06/24 21:12 10/06/24 21:12 Lab Results 10/06/24 10/06/24 10/06/24 Range/Units 21:12 21:12 21:12 WBC 18.3 H (3.8-10.6) k/uL RBC 5.04 (3.80-5.40) m/uL Hgb 13.9 (11.4-16.0) gm/dL Hct 41.8 (34.0-46.0) % MCV 82.9 (80.0-100.0) fL MCH 27.6 (25.0-35.0) pg MCHC 33.2 (31.0-37.0) g/dL RDW 14.5 (11.5-15.5) % Plt Count 339 (150-450) k/uL MPV 7.1 Neutrophils % 90 % Lymphocytes % 5 % Monocytes % 3 % Eosinophils % 2 % Basophils % 0 % Neutrophils # 16.4 H (1.3-7.7) k/uL Lymphocytes # 0.9 L (1.0-4.8) k/uL Monocytes # 0.6 (0-1.0) k/uL Eosinophils # 0.3 (0-0.7) k/uL Basophils # 0.0 (0-0.2) k/uL Sodium 136 L (137-145) mmol/L Potassium 3.5 (3.5-5.1) mmol/L Chloride 104 (98-107) mmol/L Carbon Dioxide 20 L (22-30) mmol/L Anion Gap 12 mmol/L BUN 2 L (7-17) mg/dL Creatinine 0.66 (0.52-1.04) mg/dL Est GFR (CKD-EPI)AfAm >90 (>60 ml/min/1.73 sqM) Est GFR (CKD-EPI)NonAf >90 (>60 ml/min/1.73 sqM) Glucose 99 (74-99) mg/dL Plasma Lactic Acid Robe 1.2 (0.7-2.0) mmol/L Calcium 9.7 (8.4-10.2) mg/dL Total Bilirubin 0.6 (0.2-1.3) mg/dL AST 18 (14-36) U/L ALT 13 (4-34) U/L Alkaline Phosphatase 59 (38-126) U/L Total Protein 6.8 (6.3-8.2) g/dL Albumin 4.3 (3.5-5.0) g/dL Lipase 102 (23-300) U/L - Radiology Data CT abdomen/pelvis with IV contrast: Acute sigmoid diverticulitis surrounding mesenteric inflammation and adjacent air-fluid collection/abscess measuring 2.3 x 1.7 cm. Findings are compatible with sequelae of perforation with associated localized free air/extraluminal gas. No significant pneumoperitoneum elsewhere in the abdomen, which was present on previous study 10/01/2024. Disposition Clinical Impression: Abdominal pain, Nausea, Perforation of sigmoid colon due to diverticulitis, Abscess of sigmoid colon due to diverticulitis Disposition: ADMITTED IP TO THIS HOSP Condition: Stable Is patient prescribed a controlled substance at d/c from ED?: No Time of Disposition: 23:11
[2024-10-06] MEDS: SODIUM CHLORIDE 0.9% 1,000 ML IV ONE (21:07)
[2024-10-06] MEDS: ONDANSETRON 4 MG/2 ML VIAL IVP STA (21:07)
[2024-10-06] MEDS: HYDROmorphone 1 MG/ML 1 ML SYRINGE IVP STA (21:10)
[2024-10-06 21:22] LABS: Basophils % (A) 0 %; Eosinophils # (A) 0.3 k/uL (0-0.7); Eosinophils % (A) 2 %; HCT 41.8 % (34.0-46.0); HGB 13.9 gm/dL (11.4-16.0); Lymphocytes # (A) 0.9 k/uL (1.0-4.8); Lymphocytes % (A) 5 %; MCH 27.6 pg (25.0-35.0); MCHC 33.2 g/dL (31.0-37.0); MCV 82.9 fL (80.0-100.0); Mean Platelet Volume 7.1; Monocytes # (A) 0.6 k/uL (0-1.0); Monocytes % (A) 3 %; Neutrophils # (A) 16.4 k/uL (1.3-7.7); Neutrophils % (A) 90 %; Platelet Count 339 k/uL (150-450); RBC 5.04 m/uL (3.80-5.40); RDW 14.5 % (11.5-15.5); WBC 18.3 k/uL (3.8-10.6)
[2024-10-06 21:32] LABS: ALT 13 U/L (4-34); AST 18 U/L (14-36); African American GFR (CKD) >90 (>60 ml/min/1.73 sqM); Albumin 4.3 g/dL (3.5-5.0); Alkaline Phosphatase 59 U/L (38-126); Anion Gap 12 mmol/L; Blood Urea Nitrogen 2 mg/dL (7-17); Calcium 9.7 mg/dL (8.4-10.2); Carbon Dioxide 20 mmol/L (22-30); Chloride 104 mmol/L (98-107); Glucose 99 mg/dL (74-99); Lipase 102 U/L (23-300); Non-African American GFR(CKD) >90 (>60 ml/min/1.73 sqM); Potassium 3.5 mmol/L (3.5-5.1); Sodium 136 mmol/L (137-145); Total Bilirubin 0.6 mg/dL (0.2-1.3); Total Protein 6.8 g/dL (6.3-8.2)
--- NOTE | 2024-10-06 21:40 | CT ---
EXAMINATION TYPE: CT abdomen pelvis w con DATE OF EXAM: 10/06/2024 9:25 PM COMPARISON: Multiple prior CT abdomen/pelvis studies, most recently dated 10/01/2024. CLINICAL INDICATION: Female, 49 years old with history of abdominal pain; Was here recently for bowel perforation, was supposed to have surgery but was treated with meds and D/C, no pain worse than befo re. TECHNIQUE: Axial CT abdomen pelvis w con;Sagittal and coronal reformats were created on a separate w orkstation. Contrast used:100cc mL of Isovue 300 with IV Contrast, (none if empty) Oral contrast used: without Oral Contrast (none if empty) CT DLP: 586.9 mGycm, Automated exposure control for dose reduction was used. FINDINGS: LOWER CHEST: Unremarkable ABDOMEN LIVER: Unremarkable GALLBLADDER AND BILE DUCTS: The gallbladder is surgically absent. PANCREAS: Unremarkable. SPLEEN: Unremarkable. ADRENAL GLANDS: Unremarkable. KIDNEYS AND URETERS: No evidence of hydronephrosis or renal calculus. The ureters are unremarkable. PELVIS BLADDER: No evidence for wall thickening or mass given limitations of exam. REPRODUCTIVE: Heterogeneous uterus with likely fibroid changes along the superior uterine fundus. ABDOMEN & PELVIS STOMACH AND BOWEL: Stomach and duodenum unremarkable. There is liquid stool throughout the colon sugg estive of diarrhea. Diverticulosis, and sigmoid colonic wall thickening with extensive adjacent mesen teric inflammation and pericolonic free air/extraluminal gas (series 3 image 68). Additionally, there is a developing air-fluid collection/abscess adjacent to the sigmoid colon measuring 2.3 x 1.7 cm. N o large volume pneumoperitoneum elsewhere. PERITONEUM/RETROPERITONEUM: No large volume pneumoperitoneum outside of the lower abdomen/pelvis as d escribed above. VASCULATURE: No evidence of aortic aneurysm. MUSCULOSKELETAL: No acute osseous abnormalities LYMPH NODES: No gross evidence for lymphadenopathy. SOFT TISSUE/ABDOMINAL WALL: Unremarkable IMPRESSION: Acute sigmoid diverticulitis surrounding mesenteric inflammation and adjacent air-fluid collection/ab scess measuring 2.3 x 1.7 cm. Findings are compatible with sequelae of perforation with associated lo calized free air/extraluminal gas. No significant pneumoperitoneum elsewhere in the abdomen, which wa s present on previous study 10/01/2024. [facility], Workstation: [email or web address], 10/06/2024 9:38 PM
[2024-10-06] MEDS ORDERED: ONDANSETRON 4 MG/2 ML VIAL IVP PRN (23:08)
[2024-10-06] MEDS ORDERED: NALOXONE 0.4 MG/ML 1 ML VIAL IV PRN (23:08)
[2024-10-06] MEDS: PIPERACILLIN-TAZOBACTAM 3.375 GM in SODIUM CHLORIDE 0.9% 100 ML IVPB STA (23:21)
[2024-10-06] MEDS: SODIUM CHLORIDE 0.9% 1,000 ML IV SCH (23:24)
[2024-10-07] MEDS: MORPHINE SULFATE 4 MG/ML SYRINGE IV PRN (00:55)
[2024-10-07] MEDS: SODIUM CHLORIDE 0.9% 1,000 ML IV ONE (00:58)
[2024-10-07] MEDS: HYDROmorphone 0.5 MG/0.5 ML SYRINGE IVP STA (04:02)
[2024-10-07 04:08] LABS: Basophils % (A) 0 %; Eosinophils # (A) 0.3 k/uL (0-0.7); Eosinophils % (A) 1 %; HCT 35.6 % (34.0-46.0); HGB 11.8 gm/dL (11.4-16.0); Lymphocytes # (A) 1.3 k/uL (1.0-4.8); Lymphocytes % (A) 6 %; MCH 27.9 pg (25.0-35.0); MCHC 33.1 g/dL (31.0-37.0); MCV 84.3 fL (80.0-100.0); Mean Platelet Volume 6.5; Monocytes # (A) 0.7 k/uL (0-1.0); Monocytes % (A) 3 %; Neutrophils # (A) 18.2 k/uL (1.3-7.7); Neutrophils % (A) 88 %; Platelet Count 267 k/uL (150-450); RBC 4.22 m/uL (3.80-5.40); RDW 14.2 % (11.5-15.5); WBC 20.6 k/uL (3.8-10.6)
[2024-10-07 04:20] LABS: ALT 12 U/L (4-34); AST 15 U/L (14-36); African American GFR (CKD) >90 (>60 ml/min/1.73 sqM); Albumin 3.1 g/dL (3.5-5.0); Alkaline Phosphatase 46 U/L (38-126); Anion Gap 9 mmol/L; Blood Urea Nitrogen <2 mg/dL (7-17); Calcium 8.3 mg/dL (8.4-10.2); Carbon Dioxide 16 mmol/L (22-30); Chloride 111 mmol/L (98-107); Glucose 104 mg/dL (74-99); Non-African American GFR(CKD) >90 (>60 ml/min/1.73 sqM); Potassium 3.4 mmol/L (3.5-5.1); Sodium 136 mmol/L (137-145); Total Bilirubin 0.4 mg/dL (0.2-1.3); Total Protein 5.4 g/dL (6.3-8.2)
[2024-10-07] MEDS: PIPERACILLIN-TAZOBACTAM 3.375 GM in SODIUM CHLORIDE 0.9% 100 ML IVPB SCH (08:08)
--- NOTE | 2024-10-07 11:18 | P.GSCN ---
History of Present Illness Consult date: 10/07/24 Reason for Consult: Perforated Diverticulitis History of present illness: Is a 49-year-old female with a recent history of perforated diverticulitis managed conservatively who was discharged on 10/06/2024. Patient subsequently had worsening abdominal pain and diarrhea at home thus prompting her presentation to [facility] emergency department. Patient states that she had gone home and had a liquid diet consisting of Jell-O which prompted worsening abdominal pain as well as diarrhea. She denies any melena or hematochezia. She endorses subjective fevers and chills. No shortness of breath or chest pain. No headache or blurry vision. Denies any nausea or emesis. She states that she was discharged on p.o. antibiotics which she has been compliant with. Upon presentation to [facility] emergency department a CT scan was obtained which showed evidence of persistent sigmoid colon thickening and inflammation consistent with diverticulitis along with a small 2 cm abscess with focal pneumoperitoneum at the site of the abscess. Large volume pneumoperitoneum seen prior had resolved. General surgery is consulted for further evaluation Review of Systems Negative except for as stated above Past Medical History Past Medical History: No Reported History Additional Past Medical History / Comment(s): diverticulitis History of Any Multi-Drug Resistant Organisms: None Reported Past Surgical History: Adenoidectomy, Cholecystectomy, Tonsillectomy Past Psychological History: Anxiety, Depression Smoking Status: Vaper Past Alcohol Use History: Rare Past Drug Use History: None Reported Medications and Allergies Home Medications Medication Instructions Recorded Confirmed Type Dextroamphetamine/Amphetamine 20 mg PO DAILY 09/30/24 10/07/24 History [Adderall] buPROPion XL [Wellbutrin XL] 150 mg PO DAILY 09/30/24 10/07/24 History Levofloxacin [Levaquin] 500 mg PO DAILY 10 Days #10 tab 10/05/24 10/07/24 Rx metroNIDAZOLE [Flagyl] 500 mg PO TID 10 Days #30 tab 10/05/24 10/07/24 Rx Allergies Allergy/AdvReac Type Severity Reaction Status Date / Time azithromycin AdvReac Nausea & Verified 10/07/24 08:39 Vomiting & Diarrhea Surgical - Exam Vital Signs Temp Pulse Resp BP Pulse Ox 98.8 F 138 H 18 92/67 100 10/06/24 20:16 10/06/24 20:16 10/06/24 20:16 10/06/24 20:16 10/06/24 20:16 Gen: AxO, NAD Pulm: non-labored respirations Abd: soft, tender in LLQ. Mildly distended. No guarding/rebound/rigidity Extrem: no edema seen Results - Labs 10/07/24 04:00 10/07/24 04:00 Abnormal Lab Results - Last 24 Hours (Table) 10/06/24 10/06/24 10/07/24 Range/Units 21:12 21:12 04:00 WBC 18.3 H 20.6 H (3.8-10.6) k/uL Neutrophils # 16.4 H 18.2 H (1.3-7.7) k/uL Lymphocytes # 0.9 L (1.0-4.8) k/uL Sodium 136 L (137-145) mmol/L Potassium (3.5-5.1) mmol/L Chloride (98-107) mmol/L Carbon Dioxide 20 L (22-30) mmol/L BUN 2 L (7-17) mg/dL Glucose (74-99) mg/dL Calcium (8.4-10.2) mg/dL Total Protein (6.3-8.2) g/dL Albumin (3.5-5.0) g/dL 10/07/24 Range/Units 04:00 WBC (3.8-10.6) k/uL Neutrophils # (1.3-7.7) k/uL Lymphocytes # (1.0-4.8) k/uL Sodium 136 L (137-145) mmol/L Potassium 3.4 L (3.5-5.1) mmol/L Chloride 111 H (98-107) mmol/L Carbon Dioxide 16 L (22-30) mmol/L BUN <2 L (7-17) mg/dL Glucose 104 H (74-99) mg/dL Calcium 8.3 L (8.4-10.2) mg/dL Total Protein 5.4 L (6.3-8.2) g/dL Albumin 3.1 L (3.5-5.0) g/dL Diabetes panel 10/06/24 10/07/24 Range/Units 21:12 04:00 Sodium 136 L 136 L (137-145) mmol/L Potassium 3.5 3.4 L (3.5-5.1) mmol/L Chloride 104 111 H (98-107) mmol/L Carbon Dioxide 20 L 16 L (22-30) mmol/L BUN 2 L <2 L (7-17) mg/dL Creatinine 0.66 0.55 (0.52-1.04) mg/dL Glucose 99 104 H (74-99) mg/dL Calcium 9.7 8.3 L (8.4-10.2) mg/dL AST 18 15 (14-36) U/L ALT 13 12 (4-34) U/L Alkaline Phosphatase 59 46 (38-126) U/L Total Protein 6.8 5.4 L (6.3-8.2) g/dL Albumin 4.3 3.1 L (3.5-5.0) g/dL Calcium panel 10/06/24 10/07/24 Range/Units 21:12 04:00 Calcium 9.7 8.3 L (8.4-10.2) mg/dL Albumin 4.3 3.1 L (3.5-5.0) g/dL Pituitary panel 10/06/24 10/07/24 Range/Units 21:12 04:00 Sodium 136 L 136 L (137-145) mmol/L Potassium 3.5 3.4 L (3.5-5.1) mmol/L Chloride 104 111 H (98-107) mmol/L Carbon Dioxide 20 L 16 L (22-30) mmol/L BUN 2 L <2 L (7-17) mg/dL Creatinine 0.66 0.55 (0.52-1.04) mg/dL Glucose 99 104 H (74-99) mg/dL Calcium 9.7 8.3 L (8.4-10.2) mg/dL Adrenal panel 10/06/24 10/07/24 Range/Units 21:12 04:00 Sodium 136 L 136 L (137-145) mmol/L Potassium 3.5 3.4 L (3.5-5.1) mmol/L Chloride 104 111 H (98-107) mmol/L Carbon Dioxide 20 L 16 L (22-30) mmol/L BUN 2 L <2 L (7-17) mg/dL Creatinine 0.66 0.55 (0.52-1.04) mg/dL Glucose 99 104 H (74-99) mg/dL Calcium 9.7 8.3 L (8.4-10.2) mg/dL Total Bilirubin 0.6 0.4 (0.2-1.3) mg/dL AST 18 15 (14-36) U/L ALT 13 12 (4-34) U/L Alkaline Phosphatase 59 46 (38-126) U/L Total Protein 6.8 5.4 L (6.3-8.2) g/dL Albumin 4.3 3.1 L (3.5-5.0) g/dL Assessment and Plan Assessment: Patient is a 49-year-old female with a recent history of perforated diverticulitis who Adalberto presents with worsening abdominal pain and CT evidence of persistent sigmoid diverticulitis with abscess formation Plan: -Sips of clear liquid diet as tolerated -As needed pain and nausea control -IV antibiotic therapy -Encourage ambulation -DVT and GI prophylaxis -Care per primary -No acute surgical intervention; patient counseled that currently she is not peritonitic with stable hemodynamics. Patient counseled that if worsening abdominal pain and peritonitis develops, worsening signs and symptoms of sepsis including uncontrolled fevers, hemodynamic instability patient may require Hensley's procedure for removal of sigmoid diverticulitis and drainage of intraperitoneal abscess. -Recommend IR consult for evaluation of intraperitoneal abscess drainage. Rodri Rivas M.D. General Surgery
--- NOTE | 2024-10-07 15:18 | P.HPIM ---
History of Present Illness H&P Date: 10/07/24 History of present illness; patient is a 49-year-old lady with past medical history significant for recent admission for ruptured sigmoid diverticulum with pneumoperitoneum was discharged yesterday on oral antibiotics, presented back to the hospital for abdominal pain. Patient stated that she was all right yesterday at the time of discharge but once she got home her pain worsened. Patient started having nausea associated normal pain. Abdominal pain is located in the lower quadrants, nonradiating, no aggravating or relieving factor associated with this abdominal pain. There was no complaint of fever or chills. There was complaint of diarrhea with no blood in it. Because of worsening sym ptoms, patient presented back to the ER Initial lab work done in the ER showed WBC 18.3, hemoglobin 13.9, platelet count 339, sodium 130s, potassium 3.5, BUN 2, creatinine 0.66 CT abdominal pelvis done showed acute sigmoid diverticulitis surrounding mesentery inflammation and adjacent air-fluid collection/abscess measuring 2.3 x 1.7 cm, findings are consistent with sequelae of perforation. Patient admitted to internal medicine service REVIEW OF SYSTEMS: CONSTITUTIONAL: No fever, no malaise, no fatigue. HEENT: No recent visual problems or hearing problems. Denied any sore throat. CARDIOVASCULAR: No chest pain, orthopnea, PND, no palpitations, no syncope. PULMONARY: No shortness of breath, no cough, no hemoptysis. GASTROINTESTINAL: As mentioned above NEUROLOGICAL: No headaches, no weakness, no numbness. HEMATOLOGICAL: Denies any bleeding or petechiae. GENITOURINARY: Denies any burning micturition, frequency, or urgency. MUSCULOSKELETAL/RHEUMATOLOGICAL: Denies any joint pain, swelling, or any muscle pain. ENDOCRINE: Denies any polyuria or polydipsia. The rest of the 14-point review of systems is negative. PHYSICAL EXAMINATION: GENERAL: The patient is alert and oriented x3, not in any acute distress. Well developed, well nourished. HEENT: Pupils are round and equally reacting to light. EOMI. No scleral icterus. No conjunctival pallor. Normocephalic, atraumatic. No pharyngeal erythema. No thyromegaly. CARDIOVASCULAR: S1 and S2 present. No murmurs, rubs, or gallops. PULMONARY: Chest is clear to auscultation, no wheezing or crackles. ABDOMEN: Tenderness present left lower quadrant, guarding present, normoactive bowel sounds. No palpable organomegaly. MUSCULOSKELETAL: No joint swelling or deformity. EXTREMITIES: No cyanosis, clubbing, or pedal edema. NEUROLOGICAL: Gross neurological examination did not reveal any focal deficits. SKIN: No rashes. Assessment and plan Acute diverticulitis with perforation and abscess formation of the sigmoid colon Monitor vital signs Monitor CBC Monitor CMP Ordered IV fluids Ordered IV pain medication Ordered IV Zosyn Keep patient n.p.o. Consult surgery Consult ID Labs and medication were reviewed.. Continue same treatment. Continue with symptomatic treatment. Resume home medication. Monitor labs and vitals. DVT and GI prophylaxis. Further recommendations as per clinical course of the patient Dictation was produced using [employer] dictation software. please excuse any grammatical, word or spelling errors. Past Medical History Past Medical History: No Reported History Additional Past Medical History / Comment(s): diverticulitis History of Any Multi-Drug Resistant Organisms: None Reported Past Surgical History: Adenoidectomy, Cholecystectomy, Tonsillectomy Past Psychological History: Anxiety, Depression Smoking Status: Vaper Past Alcohol Use History: Rare Past Drug Use History: None Reported Medications and Allergies Home Medications Medication Instructions Recorded Confirmed Type Dextroamphetamine/Amphetamine 20 mg PO DAILY 09/30/24 10/07/24 History [Adderall] buPROPion XL [Wellbutrin XL] 150 mg PO DAILY 09/30/24 10/07/24 History Levofloxacin [Levaquin] 500 mg PO DAILY 10 Days #10 tab 10/05/24 10/07/24 Rx metroNIDAZOLE [Flagyl] 500 mg PO TID 10 Days #30 tab 10/05/24 10/07/24 Rx Allergies Allergy/AdvReac Type Severity Reaction Status Date / Time azithromycin AdvReac Nausea & Verified 10/07/24 08:39 Vomiting & Diarrhea Physical Exam Vitals: Vital Signs Temp Pulse Resp BP Pulse Ox 10/07/24 11:47 99.8 F H 98 15 109/74 98 10/07/24 10:35 99.8 F H 100 17 111/81 99 10/07/24 09:17 100.4 F H 107 H 17 133/88 100 10/07/24 08:13 99.5 F 97 17 104/71 99 10/07/24 06:49 101 H 18 98 10/07/24 06:39 107/78 10/07/24 03:42 89 18 118/77 98 10/07/24 00:58 98 18 107/81 98 10/06/24 23:18 102 H 16 126/83 98 10/06/24 21:35 107 H 18 119/89 98 10/06/24 20:16 98.8 F 138 H 18 92/67 100 Intake and Output 10/06/24 10/07/24 10/07/24 22:59 06:59 14:59 Other: Weight 53.07 kg Results CBC & Chem 7: 10/07/24 04:00 10/07/24 04:00 Labs: Abnormal Lab Results - Last 24 Hours (Table) 10/06/24 10/06/24 10/07/24 Range/Units 21:12 21:12 04:00 WBC 18.3 H 20.6 H (3.8-10.6) k/uL Neutrophils # 16.4 H 18.2 H (1.3-7.7) k/uL Lymphocytes # 0.9 L (1.0-4.8) k/uL Sodium 136 L (137-145) mmol/L Potassium (3.5-5.1) mmol/L Chloride (98-107) mmol/L Carbon Dioxide 20 L (22-30) mmol/L BUN 2 L (7-17) mg/dL Glucose (74-99) mg/dL Calcium (8.4-10.2) mg/dL Total Protein (6.3-8.2) g/dL Albumin (3.5-5.0) g/dL 10/07/24 Range/Units 04:00 WBC (3.8-10.6) k/uL Neutrophils # (1.3-7.7) k/uL Lymphocytes # (1.0-4.8) k/uL Sodium 136 L (137-145) mmol/L Potassium 3.4 L (3.5-5.1) mmol/L Chloride 111 H (98-107) mmol/L Carbon Dioxide 16 L (22-30) mmol/L BUN <2 L (7-17) mg/dL Glucose 104 H (74-99) mg/dL Calcium 8.3 L (8.4-10.2) mg/dL Total Protein 5.4 L (6.3-8.2) g/dL Albumin 3.1 L (3.5-5.0) g/dL
--- NOTE | 2024-10-07 21:58 | P.CONS ---
History of Present Illness - Reason for Consult Consult date: 10/07/24 Acute diverticulitis Requesting physician: Jani Franklin - Chief Complaint Abdominal pain x 2 days - History of Present Illness Patient is a 49-year-old female with a past medical history significant for anxiety depression recent admission to the hospital with acute diverticulitis patient was treated with IV Zosyn after stabilization discharged home on oral Levaquin and Flagyl by general surgery patient now presenting back to the hospital due to worsening left lower quadrant abdominal pain patient mention the evening of discharge from the hospital started having pain to the left lower quadrant area that has progressively increasing severity to 10 out of 10 by the time she presented to hospital patient did have a episode of nausea but no vomiting did have some loose stools no melena patient on presentation to the hospital was afebrile she did have a temperature 100.4 F this morning patient was tachycardic did have white count of 18.3 repeat is up to 20.6 with a left shift creatinine has been normal electrolytes normal liver enzymes normal patient did have a abdominal pelvis CT 8 recently diverticulitis with surrounding mesenteric inflammation ingested he had a fluid collection concerning for an abscess 2.3 into 1.7 cm findings uncomfortable with sequelae of perforation with associated Extraluminal gas patient was started on Zosyn infectious disease was consulted for further management of antibiotic therapy Review of Systems Positive point and negatives has been mentioned in the HPI, complete review of systems was performed and all other systems are negative Past Medical History Past Medical History: No Reported History Additional Past Medical History / Comment(s): diverticulitis History of Any Multi-Drug Resistant Organisms: None Reported Past Surgical History: Adenoidectomy, Cholecystectomy, Tonsillectomy Past Psychological History: Anxiety, Depression Smoking Status: Vaper Past Alcohol Use History: Rare Past Drug Use History: None Reported Medications and Allergies Home Medications Medication Instructions Recorded Confirmed Type Dextroamphetamine/Amphetamine 20 mg PO DAILY 09/30/24 10/07/24 History [Adderall] buPROPion XL [Wellbutrin XL] 150 mg PO DAILY 09/30/24 10/07/24 History Levofloxacin [Levaquin] 500 mg PO DAILY 10 Days #10 tab 10/05/24 10/07/24 Rx metroNIDAZOLE [Flagyl] 500 mg PO TID 10 Days #30 tab 10/05/24 10/07/24 Rx Allergies Allergy/AdvReac Type Severity Reaction Status Date / Time azithromycin AdvReac Nausea & Verified 10/07/24 08:39 Vomiting & Diarrhea Physical Exam Vitals: Vital Signs Temp Pulse Resp BP Pulse Ox 10/07/24 13:58 99.0 F 17 125/83 100 10/07/24 11:47 99.8 F H 98 15 109/74 98 10/07/24 10:35 99.8 F H 100 17 111/81 99 10/07/24 09:17 100.4 F H 107 H 17 133/88 100 10/07/24 08:13 99.5 F 97 17 104/71 99 10/07/24 06:49 101 H 18 98 10/07/24 06:39 107/78 10/07/24 03:42 89 18 118/77 98 10/07/24 00:58 98 18 107/81 98 10/06/24 23:18 102 H 16 126/83 98 10/06/24 21:35 107 H 18 119/89 98 10/06/24 20:16 98.8 F 138 H 18 92/67 100 Intake and Output 10/06/24 10/07/24 10/07/24 22:59 06:59 14:59 Other: Weight 53.07 kg GENERAL DESCRIPTION: Middle-aged female lying in bed, no distress. No tachypnea or accessory muscle of respiration use. HEENT: Shows Pallor , no scleral icterus. Oral mucous membrane is dry. No pharyngeal erythema or thrush NECK: Trachea central, no thyromegaly. LUNGS: Unlabored breathing. Clear to auscultation anteriorly. No wheeze or crackle. HEART: S1, S2, regular rate and rhythm. No loud murmur ABDOMEN: Soft, left lower quadrant tenderness EXTREMITIES: No edema of feet. SKIN: No rash, no masses palpable. NEUROLOGICAL: The patient is awake, alert, oriented x3, mood and affect normal. Results CBC & Chem 7: 10/07/24 04:00 10/07/24 04:00 Labs: Abnormal Lab Results - Last 24 Hours (Table) 10/06/24 10/06/24 10/07/24 Range/Units 21:12 21:12 04:00 WBC 18.3 H 20.6 H (3.8-10.6) k/uL Neutrophils # 16.4 H 18.2 H (1.3-7.7) k/uL Lymphocytes # 0.9 L (1.0-4.8) k/uL Sodium 136 L (137-145) mmol/L Potassium (3.5-5.1) mmol/L Chloride (98-107) mmol/L Carbon Dioxide 20 L (22-30) mmol/L BUN 2 L (7-17) mg/dL Glucose (74-99) mg/dL Calcium (8.4-10.2) mg/dL Total Protein (6.3-8.2) g/dL Albumin (3.5-5.0) g/dL 10/07/24 Range/Units 04:00 WBC (3.8-10.6) k/uL Neutrophils # (1.3-7.7) k/uL Lymphocytes # (1.0-4.8) k/uL Sodium 136 L (137-145) mmol/L Potassium 3.4 L (3.5-5.1) mmol/L Chloride 111 H (98-107) mmol/L Carbon Dioxide 16 L (22-30) mmol/L BUN <2 L (7-17) mg/dL Glucose 104 H (74-99) mg/dL Calcium 8.3 L (8.4-10.2) mg/dL Total Protein 5.4 L (6.3-8.2) g/dL Albumin 3.1 L (3.5-5.0) g/dL Assessment and Plan (1) Sepsis Current Visit: Yes Status: Acute Code(s): A41.9 - SEPSIS, UNSPECIFIED ORGANISM SNOMED Code(s): 67422570 (2) Intra-abdominal abscess Current Visit: Yes Status: Acute Code(s): K65.1 - PERITONEAL ABSCESS SNOMED Code(s): 11482729 (3) Perforation of sigmoid colon due to diverticulitis Current Visit: Yes Status: Acute Code(s): K57.20 - DVTRCLI OF LG INT W PERFORATION AND ABSCESS W/O BLEEDING SNOMED Code(s): 5691088110041344 Plan: 1patient presented to hospital with sepsis in this patient who did have fever tachycardia elevated white count source is complicated sigmoid diverticulitis with perforation and alwrence diverticular abscess will need to cover for the enteric gram-negative both aerobes anaerobes, patient failing outpatient oral Levaquin and Flagyl therapy 2-Zosyn 3.375 mg/kg every 8 hourly and may need IV antibiotic on discharge if no drainage procedure is done and the patient continued to improve with IV Zosyn Question concern answered We will follow on clinical condition and cultures to further adjust medication if needed Thank you for this consultation we will follow the patient along with you Dictation was produced using [employer] dictation software. please excuse any grammatical, word or spelling errors. Time with Patient: Greater than 30
[2024-10-07] MEDS ORDERED: PANTOPRAZOLE 40 MG TABLET PO SCH (22:00)
[2024-10-07] MEDS: PANTOPRAZOLE 40 MG/10 ML VIAL IVP SCH (22:17)
[2024-10-08] MEDS: buPROPion XL 150 MG TAB.ER.24H PO SCH (08:12)
[2024-10-08] MEDS: Dextroamphetamine/Amphetamine [Adderall] 20 MG Tablet PO SCH (08:13)
[2024-10-08 09:29] LABS: Basophils # (A) 0.04 X 10*3/uL (0.00-0.10); Basophils % (A) 0.4 %; Eosinophils # (A) 0.13 X 10*3/uL (0.04-0.35); Eosinophils % (A) 1.2 %; HCT 33.7 % (37.2-46.3); HGB 10.4 g/dL (12.0-15.0); Lymphocytes # (A) 1.51 X 10*3/uL (0.90-5.00); Lymphocytes % (A) 14.5 %; MCH 26.2 pg (27.0-32.0); MCHC 30.9 g/dL (32.0-37.0); MCV 84.9 FL (80.0-97.0); Monocytes # (A) 0.84 X 10*3/uL (0.20-1.00); Monocytes % (A) 8.1 %; NRBC Per 100 WBC 0 X 10*3/uL (0.00-0.01); Neutrophils # (A) 7.84 X 10*3/uL (1.80-7.70); Neutrophils % (A) 75.3 %; Platelet Count 284 X 10*3/uL (140-440); RBC 3.97 X 10*6/uL (4.10-5.20); RDW 14.6 % (11.5-14.5); WBC 10.41 X 10*3/uL (4.50-10.00)
[2024-10-08 10:28] LABS: ALT 9 U/L (8-44); AST 13 U/L (13-35); Albumin 3.2 g/dL (3.8-4.9); Albumin/Globulin Ratio 1.78 Ratio (1.60-3.17); Alkaline Phosphatase 56 U/L (41-126); BUN/Creat Ratio <5.83 Ratio (12.00-20.00); Blood Urea Nitrogen <3.5 mg/dL (9.0-27.0); Calcium 8.3 mg/dL (8.7-10.3); Chloride 105 mmol/L (96-109); Globulin 1.8 g/dL (1.6-3.3); Glucose 80 mg/dL (70-110); Potassium 3.8 mmol/L (3.5-5.5); Sodium 141 mmol/L (135-145); Total Bilirubin 0.3 mg/dL (0.3-1.2)
[2024-10-08] MEDS ORDERED: HYDROcodone/APAP 5-325MG 1 EACH TAB PO PRN (10:46)
[2024-10-08] MEDS: ACETAMINOPHEN TAB 325 MG TAB PO PRN (11:20)
--- NOTE | 2024-10-08 12:17 | P.PN ---
Subjective Progress Note Date: 10/08/24 SURGICAL PROGRESS NOTE CHIEF COMPLAINT: Perforated diverticulitis with abscess HISTORY OF PRESENT ILLNESS: Patient reports she is feeling better. She describes some lower crampy abdominal pain. Denies any nausea or vomiting. She does want to eat. Afebrile. WBC is down from 20-10. She did have some clear liquids yesterday and tolerated them well. Discussed case with IR service unable to place drain. Fluid not assessable prior to IR service. PHYSICAL EXAM: VITAL SIGNS: Reviewed. GENERAL: Well-developed in no acute distress. ABDOMEN: Soft. Nondistended. Mild tenderness palpation suprapubic area and left lower quadrant NEUROLOGIC: Alert and oriented. Cranial nerves II through XII grossly intact. ASSESSMENT: 1. Persistent sigmoid diverticulitis with abscess 2. Recent history of perforated diverticulitis PLAN: -Case discussed with infectious disease. Consult IR service for PICC line placement -Advance diet to clear liquids -Repeat CBC in a.m. -Tylenol and Ursa added for oral pain medication -Continue antibiotics -DVT prophylaxis subcu heparin and GI prophylaxis Protonix Physician Law Reporter note has been reviewed by physician. Signing provider agrees with the documented findings, assessment, and plan of care. I have personally seen and examined the patient, reviewed the MACHINE FORMER /PAs history, exam and MDM and agree with the assessment and plan as written. Based on total visit time, I have performed more than 50% of the visit. As above: Patient feels much better today. Mild tenderness on exam. Continue IV antibiotics. Advance to full liquid diets. Objective - Vital Signs Vital signs: Vital Signs Temp 98.6 F 10/08/24 06:47 Pulse 94 10/08/24 06:47 Resp 19 10/08/24 06:47 BP 103/71 10/08/24 06:47 Pulse Ox 98 10/08/24 06:47 FiO2 Intake & Output 10/07/24 10/08/24 10/08/24 18:59 06:59 18:59 Weight 53.07 kg Other: # Voids 0 - Labs CBC & Chem 7: 10/08/24 04:25 10/08/24 04:25 Labs: Abnormal Lab Results - Last 24 Hours (Table) 10/08/24 10/08/24 Range/Units 04:25 04:25 WBC 10.41 H (4.50-10.00) X 10*3/uL RBC 3.97 L (4.10-5.20) X 10*6/uL Hgb 10.4 L (12.0-15.0) g/dL Hct 33.7 L (37.2-46.3) % MCH 26.2 L (27.0-32.0) pg MCHC 30.9 L (32.0-37.0) g/dL RDW 14.6 H (11.5-14.5) % Immature Gran # 0.05 H (0.00-0.04) X 10*3/uL Neutrophils # 7.84 H (1.80-7.70) X 10*3/uL BUN <3.5 L (9.0-27.0) mg/dL BUN/Creatinine Ratio <5.83 L (12.00-20.00) Ratio Calcium 8.3 L (8.7-10.3) mg/dL Total Protein 5.0 L (6.2-8.2) g/dL Albumin 3.2 L (3.8-4.9) g/dL Microbiology - Last 24 Hours (Table) 10/06/24 23:20 Blood Culture - Preliminary Blood
[2024-10-08 12:18] LABS: Prothrombin Time 11.3 sec (10.0-12.5)
--- NOTE | 2024-10-08 14:09 | P.PN ---
Subjective Progress Note Date: 10/08/24 patient is a 49-year-old lady with past medical history significant for recent admission for ruptured sigmoid diverticulum with pneumoperitoneum was discharged yesterday on oral antibiotics, presented back to the hospital for abdominal pain. Patient stated that she was all right yesterday at the time of discharge but once she got home her pain worsened. Patient started having nausea associated normal pain. Abdominal pain is located in the lower quadrants, nonradiating, no aggravating or relieving factor associated with this abdominal pain. There was no complaint of fever or chills. There was complaint of diarrhea with no blood in it. Because of worsening symptoms, patient presented back to the ER Initial lab work done in the ER showed WBC 18.3, hemoglobin 13.9, platelet count 339, sodium 130s, potassium 3.5, BUN 2, creatinine 0.66 CT abdominal pelvis done showed acute sigmoid diverticulitis surrounding mesentery inflammation and adjacent air-fluid collection/abscess measuring 2.3 x 1.7 cm, findings are consistent with sequelae of perforation. Patient admitted to internal medicine service 10/08. Patient seen and examined. States she feels slightly better compared to yesterday, currently on clear liquid diet and tolerating it REVIEW OF SYSTEMS: CONSTITUTIONAL: No fever, no malaise,. CARDIOVASCULAR: No chest pain, no palpitations, no syncope. PULMONARY: No shortness of breath, no cough, GASTROINTESTINAL: No diarrhea, no nausea, no vomiting, no abdominal pain. NEUROLOGICAL: No headaches, no weakness, PHYSICAL EXAMINATION: GENERAL: The patient is alert and oriented x3, not in any acute distress. Well developed, well nourished. HEENT: Pupils are round and equally reacting to light. EOMI. No scleral icterus. No conjunctival pallor. Normocephalic, atraumatic. No pharyngeal erythema. No thyromegaly. CARDIOVASCULAR: S1 and S2 present. No murmurs, rubs, or gallops. PULMONARY: Chest is clear to auscultation, no wheezing or crackles. ABDOMEN: No guarding or rigidity, normoactive bowel sounds. No palpable organomegaly. MUSCULOSKELETAL: No joint swelling or deformity. EXTREMITIES: No cyanosis, clubbing, or pedal edema. NEUROLOGICAL: Gross neurological examination did not reveal any focal deficits. SKIN: No rashes. Assessment and plan Acute diverticulitis with perforation and abscess formation of the sigmoid colon Monitor vital signs Monitor CBC Monitor CMP Continue pain management Continue IV Zosyn Continue IV fluids Continue clear liquid diet ID following Surgery following Labs and medication were reviewed.. Continue same treatment. Continue with symptomatic treatment. Resume home medication. Monitor labs and vitals. DVT and GI prophylaxis. Further recommendations as per clinical course of the patient Dictation was produced using [employer] dictation software. please excuse any grammatical, word or spelling errors. Objective - Vital Signs Vital signs: Vital Signs Temp 98.6 F 10/08/24 12:59 Pulse 89 10/08/24 12:59 Resp 18 10/08/24 12:59 BP 98/63 10/08/24 12:59 Pulse Ox 99 10/08/24 12:59 FiO2 Intake & Output 10/07/24 10/08/24 10/08/24 18:59 06:59 18:59 Weight 53.07 kg Other: # Voids 0 - Labs CBC & Chem 7: 10/08/24 04:25 10/08/24 04:25 Labs: Abnormal Lab Results - Last 24 Hours (Table) 10/08/24 10/08/24 Range/Units 04:25 04:25 WBC 10.41 H (4.50-10.00) X 10*3/uL RBC 3.97 L (4.10-5.20) X 10*6/uL Hgb 10.4 L (12.0-15.0) g/dL Hct 33.7 L (37.2-46.3) % MCH 26.2 L (27.0-32.0) pg MCHC 30.9 L (32.0-37.0) g/dL RDW 14.6 H (11.5-14.5) % Immature Gran # 0.05 H (0.00-0.04) X 10*3/uL Neutrophils # 7.84 H (1.80-7.70) X 10*3/uL BUN <3.5 L (9.0-27.0) mg/dL BUN/Creatinine Ratio <5.83 L (12.00-20.00) Ratio Calcium 8.3 L (8.7-10.3) mg/dL Total Protein 5.0 L (6.2-8.2) g/dL Albumin 3.2 L (3.8-4.9) g/dL Microbiology - Last 24 Hours (Table) 10/06/24 23:20 Blood Culture - Preliminary Blood
--- NOTE | 2024-10-08 15:08 | P.PN ---
Subjective Progress Note Date: 10/08/24 Principal diagnosis: Reason for follow-up is complicated diverticulitis with abscess Patient is a 49-year-old female with a past medical history significant for anxiety depression recent admission to the hospital with acute diverticulitis stabilized discharged on oral antibiotic presented back to the hospital with worsening abdominal pain in this patient who did have CT abdominal pelvis with evidence of perforated diverticulitis and a small abscess prompting this consultation. On today's evaluation that is 10/08/2024,the patient remains to be afebrile, patient is on room air not requiring supplemental oxygen and denies any shortness of breath no chest pain or cough.Patient denies having any nausea or vomiting, abdominal pain has slightly decreased in intensity. Patient white count is down to 10.41, creatinine 0.6 blood cultures pending Objective - Vital Signs Vital signs: Vital Signs Temp 98.6 F 10/08/24 06:47 Pulse 94 10/08/24 06:47 Resp 19 10/08/24 06:47 BP 103/71 10/08/24 06:47 Pulse Ox 98 10/08/24 06:47 FiO2 Intake & Output 10/07/24 10/08/24 10/08/24 18:59 06:59 18:59 Weight 53.07 kg Other: # Voids 0 - Exam GENERAL DESCRIPTION: Middle-age female lying in bed in no distress RESPIRATORY SYSTEM: Unlabored breathing , decreased breath sounds at bases HEART: S1 S2 regular rate and rhythm , ABDOMEN: Soft , no tenderness EXTREMITIES: No edema feet - Labs CBC & Chem 7: 10/08/24 04:25 10/08/24 04:25 Labs: Abnormal Lab Results - Last 24 Hours (Table) 10/08/24 10/08/24 Range/Units 04:25 04:25 WBC 10.41 H (4.50-10.00) X 10*3/uL RBC 3.97 L (4.10-5.20) X 10*6/uL Hgb 10.4 L (12.0-15.0) g/dL Hct 33.7 L (37.2-46.3) % MCH 26.2 L (27.0-32.0) pg MCHC 30.9 L (32.0-37.0) g/dL RDW 14.6 H (11.5-14.5) % Immature Gran # 0.05 H (0.00-0.04) X 10*3/uL Neutrophils # 7.84 H (1.80-7.70) X 10*3/uL BUN <3.5 L (9.0-27.0) mg/dL BUN/Creatinine Ratio <5.83 L (12.00-20.00) Ratio Calcium 8.3 L (8.7-10.3) mg/dL Total Protein 5.0 L (6.2-8.2) g/dL Albumin 3.2 L (3.8-4.9) g/dL Microbiology - Last 24 Hours (Table) 10/06/24 23:20 Blood Culture - Preliminary Blood Assessment and Plan (1) Sepsis Current Visit: Yes Status: Acute Code(s): A41.9 - SEPSIS, UNSPECIFIED ORGANISM SNOMED Code(s): 30998683 (2) Intra-abdominal abscess Current Visit: Yes Status: Acute Code(s): K65.1 - PERITONEAL ABSCESS SNOMED Code(s): 77198270 (3) Perforation of sigmoid colon due to diverticulitis Current Visit: Yes Status: Acute Code(s): K57.20 - DVTRCLI OF LG INT W PERFORATION AND ABSCESS W/O BLEEDING SNOMED Code(s): 2107946187057088 Plan: 1patient presented to hospital with sepsis in this patient who did have fever tachycardia elevated white count source is complicated sigmoid diverticulitis with perforation and lawrence diverticular abscess will need to cover for the enteric gram-negative both aerobes anaerobes, patient failing outpatient oral Levaquin and Flagyl therapy 2-patient is afebrile the patient white count is down to 10,000, patient to continue Zosyn 3.375 mg/kg every 8 hourly PICC line has been ordered for outpatient IV antibiotics Multiple question concern were answered Dictation was produced using [employer] dictation software. please excuse any grammatical, word or spelling errors. Time with Patient: Less than 30
[2024-10-08] MEDS: HEPARIN SODIUM,PORCINE 5,000 UNIT/ML 1 ML VIAL SQ SCH (20:45)
[2024-10-09 08:37] LABS: Basophils # (A) 0.05 X 10*3/uL (0.00-0.10); Basophils % (A) 0.6 %; Eosinophils # (A) 0.16 X 10*3/uL (0.04-0.35); Eosinophils % (A) 2.1 %; HCT 34.3 % (37.2-46.3); Lymphocytes # (A) 1.69 X 10*3/uL (0.90-5.00); Lymphocytes % (A) 21.9 %; MCHC 32.1 g/dL (32.0-37.0); MCV 84.3 FL (80.0-97.0); Mean Platelet Volume 10.1 FL (9.5-12.2); Monocytes # (A) 0.63 X 10*3/uL (0.20-1.00); Monocytes % (A) 8.2 %; NRBC Per 100 WBC 0 X 10*3/uL (0.00-0.01); Neutrophils # (A) 5.15 X 10*3/uL (1.80-7.70); Neutrophils % (A) 66.7 %; Platelet Count 327 X 10*3/uL (140-440); RBC 4.07 X 10*6/uL (4.10-5.20); RDW 14.6 % (11.5-14.5); WBC 7.72 X 10*3/uL (4.50-10.00)
[2024-10-09 09:08] LABS: BUN/Creat Ratio <5.83 Ratio (12.00-20.00); Blood Urea Nitrogen <3.5 mg/dL (9.0-27.0); Carbon Dioxide 25.9 mmol/L (21.6-31.8); Chloride 105 mmol/L (96-109); Glucose 86 mg/dL (70-110); Potassium 3.6 mmol/L (3.5-5.5); Sodium 143 mmol/L (135-145)
[2024-10-09 09:09] LABS: ALT 10 U/L (8-44); AST 11 U/L (13-35); Albumin 3.4 g/dL (3.8-4.9); Albumin/Globulin Ratio 1.55 Ratio (1.60-3.17); Alkaline Phosphatase 53 U/L (41-126); Calcium 8.7 mg/dL (8.7-10.3); Globulin 2.2 g/dL (1.6-3.3); Total Bilirubin 0.2 mg/dL (0.3-1.2); Total Protein 5.6 g/dL (6.2-8.2)
--- NOTE | 2024-10-09 11:36 | P.PN ---
Subjective Progress Note Date: 10/09/24 SURGICAL PROGRESS NOTE CHIEF COMPLAINT: Perforated diverticulitis with abscess HISTORY OF PRESENT ILLNESS: Patient reporting that her pain continues to improve. She did have episode of diarrhea this morning. Denies any nausea or vomiting. Reports no blood in the stools. She received a PICC line this morning. Afebrile. WBC has normalized at 7.72 Hgb 11 platelets 327 PHYSICAL EXAM: VITAL SIGNS: Reviewed. GENERAL: Well-developed in no acute distress. ABDOMEN: Soft. Nondistended. Mild tenderness palpation suprapubic area and left lower quadrant NEUROLOGIC: Alert and oriented. Cranial nerves II through XII grossly intact. ASSESSMENT: 1. Persistent sigmoid diverticulitis with abscess 2. Recent history of perforated diverticulitis PLAN: -Continue IV antibiotics -Continue a full liquid diet -Continue pain management -Encourage patient to increase activity level -DVT prophylaxis subcu heparin and GI prophylaxis Protonix Physician Dry Wall Installations Mechanic note has been reviewed by physician. Signing provider agrees with the documented findings, assessment, and plan of care. I have personally seen and examined the patient, reviewed the CONTINUOUS DRYOUT OPERATOR /PAs history, exam and MDM and agree with the assessment and plan as written. Based on total visit time, I have performed more than 50% of the visit. As above: Patient says she feels well. Tolerating full liquids. Continue antibiotics. Continue diet. Still has tenderness left lower quadrant. Continue inpatient IV antibiotics. Objective - Vital Signs Vital signs: Vital Signs Temp 98 F 10/09/24 06:50 Pulse 91 10/09/24 06:50 Resp 16 10/09/24 06:50 BP 114/73 10/09/24 06:50 Pulse Ox 98 10/09/24 06:50 FiO2 Intake & Output 10/08/24 10/09/24 10/09/24 18:59 06:59 18:59 Intake Total 2200 Balance 2200 Intake: Oral 2200 Other: # Voids 6 - Labs CBC & Chem 7: 10/09/24 03:06 10/09/24 03:03 Labs: Abnormal Lab Results - Last 24 Hours (Table) 10/09/24 10/09/24 Range/Units 03:03 03:06 RBC 4.07 L (4.10-5.20) X 10*6/uL Hgb 11.0 L (12.0-15.0) g/dL Hct 34.3 L (37.2-46.3) % RDW 14.6 H (11.5-14.5) % Anion Gap 12.10 H (4.00-12.00) mmol/L BUN <3.5 L (9.0-27.0) mg/dL BUN/Creatinine Ratio <5.83 L (12.00-20.00) Ratio Total Bilirubin 0.2 L (0.3-1.2) mg/dL AST 11 L (13-35) U/L Total Protein 5.6 L (6.2-8.2) g/dL Albumin 3.4 L (3.8-4.9) g/dL Albumin/Globulin Ratio 1.55 L (1.60-3.17) Ratio Microbiology - Last 24 Hours (Table) 10/06/24 23:20 Blood Culture - Preliminary Blood
--- NOTE | 2024-10-09 14:05 | P.PN ---
Subjective Progress Note Date: 10/09/24 patient is a 49-year-old lady with past medical history significant for recent admission for ruptured sigmoid diverticulum with pneumoperitoneum was discharged yesterday on oral antibiotics, presented back to the hospital for abdominal pain. Patient stated that she was all right yesterday at the time of discharge but once she got home her pain worsened. Patient started having nausea associated normal pain. Abdominal pain is located in the lower quadrants, nonradiating, no aggravating or relieving factor associated with this abdominal pain. There was no complaint of fever or chills. There was complaint of diarrhea with no blood in it. Because of worsening symptoms, patient presented back to the ER Initial lab work done in the ER showed WBC 18.3, hemoglobin 13.9, platelet count 339, sodium 130s, potassium 3.5, BUN 2, creatinine 0.66 CT abdominal pelvis done showed acute sigmoid diverticulitis surrounding mesentery inflammation and adjacent air-fluid collection/abscess measuring 2.3 x 1.7 cm, findings are consistent with sequelae of perforation. Patient admitted to internal medicine service 10/08. Patient seen and examined. States she feels slightly better compared to yesterday, currently on clear liquid diet and tolerating it 12. Patient seen and examined. States she is doing much better, denies any nausea or vomiting. REVIEW OF SYSTEMS: CONSTITUTIONAL: No fever, no malaise,. CARDIOVASCULAR: No chest pain, no palpitations, no syncope. PULMONARY: No shortness of breath, no cough, GASTROINTESTINAL: No diarrhea, no nausea, no vomiting, no abdominal pain. NEUROLOGICAL: No headaches, no weakness, PHYSICAL EXAMINATION: GENERAL: The patient is alert and oriented x3, not in any acute distress. Well developed, well nourished. HEENT: Pupils are round and equally reacting to light. EOMI. No scleral icterus. No conjunctival pallor. Normocephalic, atraumatic. No pharyngeal erythema. No thyromegaly. CARDIOVASCULAR: S1 and S2 present. No murmurs, rubs, or gallops. PULMONARY: Chest is clear to auscultation, no wheezing or crackles. ABDOMEN: No guarding or rigidity, normoactive bowel sounds. No palpable organomegaly. MUSCULOSKELETAL: No joint swelling or deformity. EXTREMITIES: No cyanosis, clubbing, or pedal edema. NEUROLOGICAL: Gross neurological examination did not reveal any focal deficits. SKIN: No rashes. Assessment and plan Acute diverticulitis with perforation and abscess formation of the sigmoid colon Monitor vital signs Monitor CBC Monitor CMP Continue pain management Continue IV Zosyn Continue IV fluids Continue clear liquid diet ID following Surgery following Labs and medication were reviewed.. Continue same treatment. Continue with symptomatic treatment. Resume home medication. Monitor labs and vitals. DVT and GI prophylaxis. Further recommendations as per clinical course of the patient Dictation was produced using [employer] dictation software. please excuse any grammatical, word or spelling errors. Objective - Vital Signs Vital signs: Vital Signs Temp 98.1 F 10/09/24 13:48 Pulse 94 10/09/24 13:48 Resp 16 10/09/24 13:48 BP 116/77 10/09/24 13:48 Pulse Ox 100 10/09/24 13:48 FiO2 Intake & Output 10/08/24 10/09/24 10/09/24 18:59 06:59 18:59 Intake Total 2200 Balance 2200 Intake: Oral 2200 Other: # Voids 6 - Labs CBC & Chem 7: 10/09/24 03:06 10/09/24 03:03 Labs: Abnormal Lab Results - Last 24 Hours (Table) 10/09/24 10/09/24 Range/Units 03:03 03:06 RBC 4.07 L (4.10-5.20) X 10*6/uL Hgb 11.0 L (12.0-15.0) g/dL Hct 34.3 L (37.2-46.3) % RDW 14.6 H (11.5-14.5) % Anion Gap 12.10 H (4.00-12.00) mmol/L BUN <3.5 L (9.0-27.0) mg/dL BUN/Creatinine Ratio <5.83 L (12.00-20.00) Ratio Total Bilirubin 0.2 L (0.3-1.2) mg/dL AST 11 L (13-35) U/L Total Protein 5.6 L (6.2-8.2) g/dL Albumin 3.4 L (3.8-4.9) g/dL Albumin/Globulin Ratio 1.55 L (1.60-3.17) Ratio Microbiology - Last 24 Hours (Table) 10/06/24 23:20 Blood Culture - Preliminary Blood
--- NOTE | 2024-10-10 11:44 | P.PN ---
Subjective Progress Note Date: 10/10/24 Principal diagnosis: Diverticular abscess Patient feels better today. Tolerating full liquids. Minimal pain. No fevers. White blood cell count normal yesterday. Objective - Vital Signs Vital signs: Vital Signs Temp 97.6 F 10/10/24 06:56 Pulse 71 10/10/24 06:56 Resp 15 10/10/24 06:56 BP 109/75 10/10/24 06:56 Pulse Ox 100 10/10/24 06:56 FiO2 Intake & Output 10/09/24 10/10/24 10/10/24 18:59 06:59 18:59 Intake Total 2160 Balance 2160 Intake: Oral 2160 Other: # Voids 7 5 - Exam Abdomen: Soft, nondistended, minimal left lower quadrant tenderness - Labs CBC & Chem 7: 10/09/24 03:06 10/09/24 03:03 Labs: Microbiology - Last 24 Hours (Table) 10/06/24 23:20 Blood Culture - Preliminary Blood Assessment and Plan (1) Abscess of sigmoid colon due to diverticulitis Narrative/Plan: Advance to low fiber diet. Continue antibiotics. If tolerates diet consider discharge tomorrow or Saturday. Current Visit: Yes Status: Acute Code(s): K57.20 - DVTRCLI OF LG INT W PERFORATION AND ABSCESS W/O BLEEDING SNOMED Code(s): 9869063433568444
--- NOTE | 2024-10-10 14:23 | P.PN ---
Subjective Progress Note Date: 10/09/24 Principal diagnosis: Reason for follow-up is complicated diverticulitis with abscess Patient is a 49-year-old female with a past medical history significant for anxiety depression recent admission to the hospital with acute diverticulitis stabilized discharged on oral antibiotic presented back to the hospital with worsening abdominal pain in this patient who did have CT abdominal pelvis with evidence of perforated diverticulitis and a small abscess prompting this consultation. On today's evaluation that is 10/09/2024, the patient continues to be afebrile, the patient is on room air and breathing comfortably, the Pt denies having any chest pain or cough, the patient abdominal pain has decreased in intensity down to 1-2 no nausea vomiting some loose stools Patient white count 7.72, creatinine 0.6 blood cultures so far pending Objective - Vital Signs Vital signs: Vital Signs Temp 98.1 F 10/09/24 13:48 Pulse 94 10/09/24 13:48 Resp 16 10/09/24 13:48 BP 116/77 10/09/24 13:48 Pulse Ox 100 10/09/24 13:48 FiO2 Intake & Output 10/08/24 10/09/24 10/09/24 18:59 06:59 18:59 Intake Total 2200 Balance 2200 Intake: Oral 2200 Other: # Voids 6 - Exam GENERAL DESCRIPTION: Middle-age female lying in bed in no distress RESPIRATORY SYSTEM: Unlabored breathing , decreased breath sounds at bases HEART: S1 S2 regular rate and rhythm , ABDOMEN: Soft , no tenderness EXTREMITIES: No edema feet - Labs CBC & Chem 7: 10/09/24 03:06 10/09/24 03:03 Labs: Abnormal Lab Results - Last 24 Hours (Table) 10/09/24 10/09/24 Range/Units 03:03 03:06 RBC 4.07 L (4.10-5.20) X 10*6/uL Hgb 11.0 L (12.0-15.0) g/dL Hct 34.3 L (37.2-46.3) % RDW 14.6 H (11.5-14.5) % Anion Gap 12.10 H (4.00-12.00) mmol/L BUN <3.5 L (9.0-27.0) mg/dL BUN/Creatinine Ratio <5.83 L (12.00-20.00) Ratio Total Bilirubin 0.2 L (0.3-1.2) mg/dL AST 11 L (13-35) U/L Total Protein 5.6 L (6.2-8.2) g/dL Albumin 3.4 L (3.8-4.9) g/dL Albumin/Globulin Ratio 1.55 L (1.60-3.17) Ratio Microbiology - Last 24 Hours (Table) 10/06/24 23:20 Blood Culture - Preliminary Blood Assessment and Plan (1) Sepsis Current Visit: Yes Status: Acute Code(s): A41.9 - SEPSIS, UNSPECIFIED ORGANISM SNOMED Code(s): 34810252 (2) Intra-abdominal abscess Current Visit: Yes Status: Acute Code(s): K65.1 - PERITONEAL ABSCESS SNOMED Code(s): 88899449 (3) Perforation of sigmoid colon due to diverticulitis Current Visit: Yes Status: Acute Code(s): K57.20 - DVTRCLI OF LG INT W PERFORATION AND ABSCESS W/O BLEEDING SNOMED Code(s): 5213917218481405 Plan: 1patient presented to hospital with sepsis in this patient who did have fever tachycardia elevated white count source is complicated sigmoid diverticulitis with perforation and lawrence diverticular abscess will need to cover for the enteric gram-negative both aerobes anaerobes, patient failing outpatient oral Levaquin and Flagyl therapy 2-patient is afebrile the patient white count has normalized, currently being tr eated Zosyn 3.375 mg/kg every 8 hourly diet is slowly being advanced by general surgery and will see clinical response Dictation was produced using [employer] dictation software. please excuse any grammatical, word or spelling errors. Time with Patient: Less than 30
--- NOTE | 2024-10-10 14:24 | P.PN ---
Subjective Progress Note Date: 10/10/24 Principal diagnosis: Reason for follow-up is complicated diverticulitis with abscess Patient is a 49-year-old female with a past medical history significant for anxiety depression recent admission to the hospital with acute diverticulitis stabilized discharged on oral antibiotic presented back to the hospital with worsening abdominal pain in this patient who did have CT abdominal pelvis with evidence of perforated diverticulitis and a small abscess prompting this consultation. On today's evaluation that is 10/10/2024, patient did not have any fever and denies any chills, patient is breathing comfortably on room air, patient with no chest pain or cough patient did have significant improvement in abdominal pain no nausea vomiting tolerating her diet small bowel movement. No new labs has been obtained today Objective - Vital Signs Vital signs: Vital Signs Temp 97.8 F 10/10/24 14:00 Pulse 89 10/10/24 14:00 Resp 16 10/10/24 14:00 BP 105/73 10/10/24 14:00 Pulse Ox 100 10/10/24 14:00 FiO2 Intake & Output 10/09/24 10/10/24 10/10/24 18:59 06:59 18:59 Intake Total 2160 Balance 2160 Intake: Oral 2160 Other: # Voids 7 5 5 # Bowel Movements 1 - Exam GENERAL DESCRIPTION: Middle-age female lying in bed in no distress RESPIRATORY SYSTEM: Unlabored breathing , decreased breath sounds at bases HEART: S1 S2 regular rate and rhythm , ABDOMEN: Soft , no tenderness EXTREMITIES: No edema feet - Labs CBC & Chem 7: 10/09/24 03:06 10/09/24 03:03 Labs: Microbiology - Last 24 Hours (Table) 10/06/24 23:20 Blood Culture - Preliminary Blood Assessment and Plan (1) Sepsis Current Visit: Yes Status: Acute Code(s): A41.9 - SEPSIS, UNSPECIFIED ORGANISM SNOMED Code(s): 48100173 (2) Intra-abdominal abscess Current Visit: Yes Status: Acute Code(s): K65.1 - PERITONEAL ABSCESS SNOMED Code(s): 59587195 (3) Perforation of sigmoid colon due to diverticulitis Current Visit: Yes Status: Acute Code(s): K57.20 - DVTRCLI OF LG INT W PERFORATION AND ABSCESS W/O BLEEDING SNOMED Code(s): 8703592900879463 Plan: 1patient presented to hospital with sepsis in this patient who did have fever tachycardia elevated white count source is complicated sigmoid diverticulitis with perforation and lawrence diverticular abscess will need to cover for the enteric gram-negative both aerobes anaerobes, patient failing outpatient oral Levaquin and Flagyl therapy 2-patient is afebrile the patient white count has normalized, 3-patient diet is slowly being advanced once she tolerates a diet and cleared by surgery for discharge she will continue with IV Zosyn on discharge arrangements has been made, continue with Zosyn Dictation was produced using [employer] dictation software. please excuse any grammatical, word or spelling errors. Time with Patient: Less than 30
--- NOTE | 2024-10-10 15:04 | P.PN ---
Subjective Progress Note Date: 10/10/24 patient is a 49-year-old lady with past medical history significant for recent admission for ruptured sigmoid diverticulum with pneumoperitoneum was discharged yesterday on oral antibiotics, presented back to the hospital for abdominal pain. Patient stated that she was all right yesterday at the time of discharge but once she got home her pain worsened. Patient started having nausea associated normal pain. Abdominal pain is located in the lower quadrants, nonradiating, no aggravating or relieving factor associated with this abdominal pain. There was no complaint of fever or chills. There was complaint of diarrhea with no blood in it. Because of worsening symptoms, patient presented back to the ER Initial lab work done in the ER showed WBC 18.3, hemoglobin 13.9, platelet count 339, sodium 130s, potassium 3.5, BUN 2, creatinine 0.66 CT abdominal pelvis done showed acute sigmoid diverticulitis surrounding mesentery inflammation and adjacent air-fluid collection/abscess measuring 2.3 x 1.7 cm, findings are consistent with sequelae of perforation. Patient admitted to internal medicine service 10/08. Patient seen and examined. States she feels slightly better compared to yesterday, currently on clear liquid diet and tolerating it . Patient seen and examined. States she is doing much better, denies any nausea or vomiting. 10/10. Patient seen and examined. Tolerating diet. States she feels better. REVIEW OF SYSTEMS: CONSTITUTIONAL: No fever, no malaise,. CARDIOVASCULAR: No chest pain, no palpitations, no syncope. PULMONARY: No shortness of breath, no cough, GASTROINTESTINAL: No diarrhea, no nausea, no vomiting, no abdominal pain. NEUROLOGICAL: No headaches, no weakness, PHYSICAL EXAMINATION: GENERAL: The patient is alert and oriented x3, not in any acute distress. Well developed, well nourished. HEENT: Pupils are round and equally reacting to light. EOMI. No scleral icterus. No conjunctival pallor. Normocephalic, atraumatic. No pharyngeal erythema. No thyromegaly. CARDIOVASCULAR: S1 and S2 present. No murmurs, rubs, or gallops. PULMONARY: Chest is clear to auscultation, no wheezing or crackles. ABDOMEN: No guarding or rigidity, normoactive bowel sounds. No palpable organomegaly. MUSCULOSKELETAL: No joint swelling or deformity. EXTREMITIES: No cyanosis, clubbing, or pedal edema. NEUROLOGICAL: Gross neurological examination did not reveal any focal deficits. SKIN: No rashes. Assessment and plan Acute diverticulitis with perforation and abscess formation of the sigmoid colon Monitor vital signs Monitor CBC Monitor CMP Continue pain management Continue IV Zosyn Currently on regular diet ID following Surgery following Labs and medication were reviewed.. Continue same treatment. Continue with symptomatic treatment. Resume home medication. Monitor labs and vitals. DVT and GI prophylaxis. Further recommendations as per clinical course of the patient Dictation was produced using [employer] dictation software. please excuse any grammatical, word or spelling errors. Objective - Vital Signs Vital signs: Vital Signs Temp 97.8 F 10/10/24 14:00 Pulse 89 10/10/24 14:00 Resp 16 10/10/24 14:00 BP 105/73 10/10/24 14:00 Pulse Ox 100 10/10/24 14:00 FiO2 Intake & Output 10/09/24 10/10/24 10/10/24 18:59 06:59 18:59 Intake Total 2160 Balance 2160 Intake: Oral 2160 Other: # Voids 7 5 5 # Bowel Movements 1 - Labs CBC & Chem 7: 10/09/24 03:06 10/09/24 03:03 Labs: Microbiology - Last 24 Hours (Table) 10/06/24 23:20 Blood Culture - Preliminary Blood
--- NOTE | 2024-10-11 11:43 | P.PN ---
Subjective Progress Note Date: 10/11/24 Principal diagnosis: Diverticular abscess Patient feels well today. Denies abdominal pain currently. Tolerating diet. No fevers. Objective - Vital Signs Vital signs: Vital Signs Temp 97.9 F 10/11/24 07:11 Pulse 85 10/11/24 07:11 Resp 16 10/11/24 07:11 BP 124/85 10/11/24 07:11 Pulse Ox 99 10/11/24 07:11 FiO2 Intake & Output 10/10/24 10/11/24 10/11/24 18:59 06:59 18:59 Intake Total 1720 Balance 1720 Intake: Oral 1720 Other: # Voids 3 4 # Bowel Movements 1 - Exam Abdomen: Soft, nondistended, minimal left lower quadrant tenderness - Labs CBC & Chem 7: 10/09/24 03:06 10/09/24 03:03 Assessment and Plan (1) Abscess of sigmoid colon due to diverticulitis Narrative/Plan: Patient doing well at this time. Continue antibiotics. Plan discharge tomorrow. Follow-up as outpatient. Current Visit: Yes Status: Acute Code(s): K57.20 - DVTRCLI OF LG INT W PERFORATION AND ABSCESS W/O BLEEDING SNOMED Code(s): 4078242795750038
--- NOTE | 2024-10-11 14:53 | P.PN ---
Subjective Progress Note Date: 10/11/24 Principal diagnosis: Reason for follow-up is complicated diverticulitis with abscess Patient is a 49-year-old female with a past medical history significant for anxiety depression recent admission to the hospital with acute diverticulitis stabilized discharged on oral antibiotic presented back to the hospital with worsening abdominal pain in this patient who did have CT abdominal pelvis with evidence of perforated diverticulitis and a small abscess prompting this consultation. On today's evaluation that is 10/11/2024, Patient is afebrile patient is currently on room air and denies having any shortness of breath, the patient denies any chest pain or cough, the patient denies any nausea vomiting abdominal pain is significantly improved did have bowel movement and tolerating a diet. No new lab has been repeated today blood culture have been negative so far Objective - Vital Signs Vital signs: Vital Signs Temp 97.9 F 10/11/24 12:38 Pulse 86 10/11/24 12:38 Resp 16 10/11/24 12:38 BP 110/74 10/11/24 12:38 Pulse Ox 100 10/11/24 12:38 FiO2 Intake & Output 10/10/24 10/11/24 10/11/24 18:59 06:59 18:59 Intake Total 1720 Balance 1720 Intake: Oral 1720 Other: # Voids 3 4 # Bowel Movements 1 - Exam GENERAL DESCRIPTION: Middle-age female lying in bed in no distress RESPIRATORY SYSTEM: Unlabored breathing , decreased breath sounds at bases HEART: S1 S2 regular rate and rhythm , ABDOMEN: Soft , no tenderness EXTREMITIES: No edema feet - Labs CBC & Chem 7: 10/09/24 03:06 10/09/24 03:03 Assessment and Plan (1) Sepsis Current Visit: Yes Status: Acute Code(s): A41.9 - SEPSIS, UNSPECIFIED ORGANISM SNOMED Code(s): 65778253 (2) Intra-abdominal abscess Current Visit: Yes Status: Acute Code(s): K65.1 - PERITONEAL ABSCESS SNOMED Code(s): 00277834 (3) Perforation of sigmoid colon due to diverticulitis Current Visit: Yes Status: Acute Code(s): K57.20 - DVTRCLI OF LG INT W PERFORATION AND ABSCESS W/O BLEEDING SNOMED Code(s): 6740571294343548 Plan: 1patient presented to hospital with sepsis in this patient who did have fever tachycardia elevated white count source is complicated sigmoid diverticulitis with perforation and lawrence diverticular abscess will need to cover for the enteric gram-negative both aerobes anaerobes, patient failing outpatient oral Levaquin and Flagyl therapy 2-patient is afebrile the patient white count has normalized, and the patient has been tolerating her diet she will continue with Zosyn plan is for a 2 weeks course on discharge and a repeat CT before discontinuation of antibiotic Question concern overall fluid Dictation was produced using [email or web address] dictation software. please excuse any grammatical, word or spelling errors. Time with Patient: Less than 30
--- NOTE | 2024-10-11 14:57 | P.PN ---
Subjective Progress Note Date: 10/11/24 patient is a 49-year-old lady with past medical history significant for recent admission for ruptured sigmoid diverticulum with pneumoperitoneum was discharged yesterday on oral antibiotics, presented back to the hospital for abdominal pain. Patient stated that she was all right yesterday at the time of discharge but once she got home her pain worsened. Patient started having nausea associated normal pain. Abdominal pain is located in the lower quadrants, nonradiating, no aggravating or relieving factor associated with this abdominal pain. There was no complaint of fever or chills. There was complaint of diarrhea with no blood in it. Because of worsening symptoms, patient presented back to the ER Initial lab work done in the ER showed WBC 18.3, hemoglobin 13.9, platelet count 339, sodium 130s, potassium 3.5, BUN 2, creatinine 0.66 CT abdominal pelvis done showed acute sigmoid diverticulitis surrounding mesentery inflammation and adjacent air-fluid collection/abscess measuring 2.3 x 1.7 cm, findings are consistent with sequelae of perforation. Patient admitted to internal medicine service 10/08. Patient seen and examined. States she feels slightly better compared to yesterday, currently on clear liquid diet and tolerating it . Patient seen and examined. States she is doing much better, denies any nausea or vomiting. 10/10. Patient seen and examined. Tolerating diet. States she feels better. 10/11. Patient seen and examined. No acute issue overnight. Vital stable REVIEW OF SYSTEMS: CONSTITUTIONAL: No fever, no malaise,. CARDIOVASCULAR: No chest pain, no palpitations, no syncope. PULMONARY: No shortness of breath, no cough, GASTROINTESTINAL: No diarrhea, no nausea, no vomiting, no abdominal pain. NEUROLOGICAL: No headaches, no weakness, PHYSICAL EXAMINATION: GENERAL: The patient is alert and oriented x3, not in any acute distress. Well developed, well nourished. HEENT: Pupils are round and equally reacting to light. EOMI. No scleral icterus. No conjunctival pallor. Normocephalic, atraumatic. No pharyngeal erythema. No thyromegaly. CARDIOVASCULAR: S1 and S2 present. No murmurs, rubs, or gallops. PULMONARY: Chest is clear to auscultation, no wheezing or crackles. ABDOMEN: No guarding or rigidity, normoactive bowel sounds. No palpable organomegaly. MUSCULOSKELETAL: No joint swelling or deformity. EXTREMITIES: No cyanosis, clubbing, or pedal edema. NEUROLOGICAL: Gross neurological examination did not reveal any focal deficits. SKIN: No rashes. Assessment and plan Acute diverticulitis with perforation and abscess formation of the sigmoid colon Monitor vital signs Monitor CBC Monitor CMP Continue pain management Continue IV Zosyn Currently on regular diet ID following Surgery following Labs and medication were reviewed.. Continue same treatment. Continue with symptomatic treatment. Resume home medication. Monitor labs and vitals. DVT and GI prophylaxis. Further recommendations as per clinical course of the pat ient Dictation was produced using [employer] dictation software. please excuse any grammatical, word or spelling errors. Objective - Vital Signs Vital signs: Vital Signs Temp 97.9 F 10/11/24 12:38 Pulse 86 10/11/24 12:38 Resp 16 10/11/24 12:38 BP 110/74 10/11/24 12:38 Pulse Ox 100 10/11/24 12:38 FiO2 Intake & Output 10/10/24 10/11/24 10/11/24 18:59 06:59 18:59 Intake Total 1720 Balance 1720 Intake: Oral 1720 Other: # Voids 3 4 # Bowel Movements 1 - Labs CBC & Chem 7: 10/09/24 03:06 10/09/24 03:03
[2024-10-12 07:22] VITALS: BP 102/72; PULSE 97; RESP 16; TEMP 97.8
[2024-10-12 09:17] LABS: Basophils # (A) 0.06 X 10*3/uL (0.00-0.10); Basophils % (A) 0.7 %; Eosinophils # (A) 0.45 X 10*3/uL (0.04-0.35); Eosinophils % (A) 5.5 %; HCT 35.7 % (37.2-46.3); HGB 11.2 g/dL (12.0-15.0); Lymphocytes # (A) 2.27 X 10*3/uL (0.90-5.00); Lymphocytes % (A) 27.6 %; MCH 26.6 pg (27.0-32.0); MCHC 31.4 g/dL (32.0-37.0); MCV 84.8 FL (80.0-97.0); Mean Platelet Volume 10.4 FL (9.5-12.2); Monocytes # (A) 0.79 X 10*3/uL (0.20-1.00); Monocytes % (A) 9.6 %; NRBC Per 100 WBC 0 X 10*3/uL (0.00-0.01); Neutrophils # (A) 4.61 X 10*3/uL (1.80-7.70); Platelet Count 350 X 10*3/uL (140-440); RBC 4.21 X 10*6/uL (4.10-5.20); RDW 14.3 % (11.5-14.5); WBC 8.23 X 10*3/uL (4.50-10.00)
[2024-10-12 09:41] LABS: ALT 9 U/L (8-44); AST 12 U/L (13-35); Albumin 3.6 g/dL (3.8-4.9); Alkaline Phosphatase 51 U/L (41-126); BUN/Creat Ratio 5.86 Ratio (12.00-20.00); Blood Urea Nitrogen 4.1 mg/dL (9.0-27.0); Calcium 9.1 mg/dL (8.7-10.3); Carbon Dioxide 24.1 mmol/L (21.6-31.8); Chloride 104 mmol/L (96-109); Globulin 2.4 g/dL (1.6-3.3); Glucose 92 mg/dL (70-110); Sodium 142 mmol/L (135-145); Total Bilirubin <0.2 mg/dL (0.3-1.2)
[2024-10-12 14:00] VITALS: BMI 23.6
--- NOTE | 2024-10-12 14:06 | P.DS ---
Providers Date of admission: 10/06/24 23:08 Expected date of discharge: 10/12/24 Attending physician: Sara Santillan Consults: 10/06/24 21:48 Consult Physician Urgent Consulting Provider: Luciano Aquino Consult Reason/Comments: perforated diverticulitis with abscess Do you want consulting provider notified?: Yes 10/07/24 13:36 Consult Physician Routine Consulting Provider: Brooke Robertson Consult Reason/Comments: Intra-abdominal infection, perforation Do you want consulting provider notified?: Yes Primary care physician: Kristina Garner Hospital Course: Discharge diagnoses; Acute diverticulitis with perforation and abscess formation of the sigmoid colon Hospital course; patient is a 49-year-old lady with past medical history significant for recent admission for ruptured sigmoid diverticulum with pneumoperitoneum was discharged yesterday on oral antibiotics, presented back to the hospital for abdominal pain. Patient stated that she was all right yesterday at the time of discharge but once she got home her pain worsened. Patient started having nausea associated normal pain. Abdominal pain is located in the lower quadrants, nonradiating, no aggravating or relieving factor associated with this abdominal pain. There was no complaint of fever or chills. There was complaint of diarrhea with no blood in it. Because of worsening symptoms, patient presented back to the ER Initial lab work done in the ER showed WBC 18.3, hemoglobin 13.9, platelet count 339, sodium 130s, potassium 3.5, BUN 2, creatinine 0.66 CT abdominal pelvis done showed acute sigmoid diverticulitis surrounding mesentery inflammation and adjacent air-fluid collection/abscess measuring 2.3 x 1.7 cm, findings are consistent with sequelae of perforation. Patient admitted to internal medicine service 10/08. Patient seen and examined. States she feels slightly better compared to yesterday, currently on clear liquid diet and tolerating it . Patient seen and examined. States she is doing much better, denies any nausea or vomiting. 10/10. Patient seen and examined. Tolerating diet. States she feels better. 10/11. Patient seen and examined. No acute issue overnight. Vital stable 10/12. Patient seen and examined. ID has given prescription for outpatient IV antibiotics, case management has made all the arrangements. Being discharged stable condition PHYSICAL EXAMINATION: GENERAL: The patient is alert and oriented x3, not in any acute distress. Well developed, well nourished. HEENT: Pupils are round and equally reacting to light. EOMI. No scleral icterus. No conjunctival pallor. Normocephalic, atraumatic. No pharyngeal erythema. No thyromegaly. CARDIOVASCULAR: S1 and S2 present. No murmurs, rubs, or gallops. PULMONARY: Chest is clear to auscultation, no wheezing or crackles. ABDOMEN: Soft, nontender, nondistended, normoactive bowel sounds. No palpable organomegaly. MUSCULOSKELETAL: No joint swelling or deformity. EXTREMITIES: No cyanosis, clubbing, or pedal edema. NEUROLOGICAL: Gross neurological examination did not reveal any focal deficits. SKIN: No rashes. Dictation was produced using [employer] dictation software. please excuse any gramma tical, word or spelling errors. Patient Condition at Discharge: Stable Plan - Discharge Summary New Discharge Prescriptions: Continue buPROPion XL [Wellbutrin XL] 150 mg PO DAILY Dextroamphetamine/Amphetamine [Adderall] 20 mg PO DAILY Discontinued Levofloxacin [Levaquin] 500 mg PO DAILY 10 Days #10 tab metroNIDAZOLE [Flagyl] 500 mg PO TID 10 Days #30 tab Discharge Medication List Dextroamphetamine/Amphetamine [Adderall] 20 mg PO DAILY 09/30/24 [History] buPROPion XL [Wellbutrin XL] 150 mg PO DAILY 09/30/24 [History] Follow up Appointment(s)/Referral(s): Luciano Aquino MD [Medical Doctor] - 10/21/24 2:30 pm Kristina Garner DO [Primary Care Provider] - 10/15/24 10:20 am (at [place] office) [facility], [NON-STAFF] - As Needed ([facility] will call you to schedule your in home nursing visits to begin IV antibiotic teaching. Your first visit will be tomorrow. ) [facility] [NON-STAFF] - As Needed ([facility] will deliver IV antibiotic supplies to your house this evening. They should call prior to delivery. ) Brooke Robertson MD [STAFF PHYSICIAN] - 10/26/24 2:15 pm Discharge Disposition: HOME SELF-CARE
--- NOTE | 2024-10-12 15:48 | P.PN ---
Subjective Progress Note Date: 10/12/24 Principal diagnosis: Diverticular abscess Patient doing well today. Denies pain. She is anxious for discharge. Objective - Vital Signs Vital signs: Vital Signs Temp 97.8 F 10/12/24 07:21 Pulse 97 10/12/24 07:21 Resp 16 10/12/24 07:21 BP 102/72 10/12/24 07:21 Pulse Ox 95 10/12/24 07:21 FiO2 Intake & Output 10/11/24 10/12/24 10/12/24 18:59 06:59 18:59 Intake Total 1080 Balance 1080 Weight 53.07 kg Intake: Oral 1080 Other: Voiding Method Toilet # Voids 4 4 - Exam Abdomen: Soft, nontender, nondistended - Labs CBC & Chem 7: 10/12/24 03:44 10/12/24 03:44 Labs: Abnormal Lab Results - Last 24 Hours (Table) 10/12/24 10/12/24 Range/Units 03:44 03:44 Hgb 11.2 L (12.0-15.0) g/dL Hct 35.7 L (37.2-46.3) % MCH 26.6 L (27.0-32.0) pg MCHC 31.4 L (32.0-37.0) g/dL Immature Gran # 0.05 H (0.00-0.04) X 10*3/uL Eosinophils # 0.45 H (0.04-0.35) X 10*3/uL Anion Gap 13.90 H (4.00-12.00) mmol/L BUN 4.1 L (9.0-27.0) mg/dL BUN/Creatinine Ratio 5.86 L (12.00-20.00) Ratio Total Bilirubin <0.2 L (0.3-1.2) mg/dL AST 12 L (13-35) U/L Total Protein 6.0 L (6.2-8.2) g/dL Albumin 3.6 L (3.8-4.9) g/dL Albumin/Globulin Ratio 1.50 L (1.60-3.17) Ratio Microbiology - Last 24 Hours (Table) 10/06/24 23:20 Blood Culture - Final Blood Assessment and Plan (1) Abscess of sigmoid colon due to diverticulitis Narrative/Plan: Patient doing well at this time. Continue antibiotics postdischarge. Follow-up 2 weeks. Current Visit: Yes Status: Acute Code(s): K57.20 - DVTRCLI OF LG INT W PERFORATION AND ABSCESS W/O BLEEDING SNOMED Code(s): 6249526573102193
--- NOTE | 2024-10-14 14:48 | P.PN ---
Subjective Progress Note Date: 10/12/24 Principal diagnosis: Reason for follow-up is complicated diverticulitis with abscess Patient is a 49-year-old female with a past medical history significant for anxiety depression recent admission to the hospital with acute diverticulitis stabilized discharged on oral antibiotic presented back to the hospital with worsening abdominal pain in this patient who did have CT abdominal pelvis with evidence of perforated diverticulitis and a small abscess prompting this consultation. On today's evaluation that is 10/12/2024, patient has been afebrile, patient is breathing comfortably and is currently on room air, patient denies having any significant cough no chest pain, patient denies nausea vomiting or diarrhea and no abdominal pain, feeling better. Patient white count is 8.23, creatinine 0.7 Objective - Vital Signs Vital signs: Vital Signs Temp 97.8 F 10/12/24 07:21 Pulse 97 10/12/24 07:21 Resp 16 10/12/24 07:21 BP 102/72 10/12/24 07:21 Pulse Ox 95 10/12/24 07:21 FiO2 Intake & Output 10/11/24 10/12/24 10/12/24 18:59 06:59 18:59 Intake Total 1080 Balance 1080 Intake: Oral 1080 Other: Voiding Method Toilet # Voids 4 4 - Exam GENERAL DESCRIPTION: Middle-age female lying in bed in no distress RESPIRATORY SYSTEM: Unlabored breathing , decreased breath sounds at bases HEART: S1 S2 regular rate and rhythm , ABDOMEN: Soft , no tenderness EXTREMITIES: No edema feet - Labs CBC & Chem 7: 10/12/24 03:44 10/12/24 03:44 Labs: Abnormal Lab Results - Last 24 Hours (Table) 10/12/24 10/12/24 Range/Units 03:44 03:44 Hgb 11.2 L (12.0-15.0) g/dL Hct 35.7 L (37.2-46.3) % MCH 26.6 L (27.0-32.0) pg MCHC 31.4 L (32.0-37.0) g/dL Immature Gran # 0.05 H (0.00-0.04) X 10*3/uL Eosinophils # 0.45 H (0.04-0.35) X 10*3/uL Anion Gap 13.90 H (4.00-12.00) mmol/L BUN 4.1 L (9.0-27.0) mg/dL BUN/Creatinine Ratio 5.86 L (12.00-20.00) Ratio Total Bilirubin <0.2 L (0.3-1.2) mg/dL AST 12 L (13-35) U/L Total Protein 6.0 L (6.2-8.2) g/dL Albumin 3.6 L (3.8-4.9) g/dL Albumin/Globulin Ratio 1.50 L (1.60-3.17) Ratio Microbiology - Last 24 Hours (Table) 10/06/24 23:20 Blood Culture - Final Blood Assessment and Plan (1) Sepsis Status: Acute Code(s): A41.9 - SEPSIS, UNSPECIFIED ORGANISM SNOMED Code(s): 92773070 (2) Intra-abdominal abscess Status: Acute Code(s): K65.1 - PERITONEAL ABSCESS SNOMED Code(s): 13864764 (3) Perforation of sigmoid colon due to diverticulitis Status: Acute Code(s): K57.20 - DVTRCLI OF LG INT W PERFORATION AND ABSCESS W/O BLEEDING SNOMED Code(s): 8085246405011640 Plan: 1patient presented to hospital with sepsis in this patient who did have fever tachycardia elevated white count source is complicated sigmoid diverticulitis with perforation and lawrence diverticular abscess will need to cover for the enteric gram-negative both aerobes anaerobes, patient failing outpatient oral Levaquin and Flagyl therapy 2-patient is afebrile the patient white count has normalized, and the patient has been tolerating her diet 3plan is to treat with Zosyn for a 2 weeks course on discharge and a repeat CT before discontinuation of antibiotic and a close outpatient follow-up Patient question concern were answered Dictation was produced using [employer] dictation software. please excuse any grammatical, word or spelling errors. Time with Patient: Less than 30
== END 2024-10-12 15:45 | disposition home or self-care (01) | DRG 871 ==
LOC: EC 20:10 → 5NMEDONC 22:23 → OBSVTOIN 23:08 → 5NMEDONC 23:31 → 6NMEDSUR 23:37 → 4SSUR 10-07 08:55
PROVIDERS: ADMIT Hospitalist; ATTEND Hospitalist
PROC: 02HV33Z Insertion of Infusion Device into Superior Vena Cava, Percutaneous Approach (ICD-10-PCS; principal; 2024-10-09 07:30)
DX: A41.9 Sepsis, unspecified organism (principal); K65.1 Peritoneal abscess; K57.20 Diverticulitis of large intestine with perforation and abscess without bleeding; K66.8 Other specified disorders of peritoneum; F32.A Depression, unspecified; F41.9 Anxiety disorder, unspecified; Z88.1 Allergy status to other antibiotic agents; Z79.899 Other long term (current) drug therapy
CPT/HCPCS: 36415; 36573; 74177; 80053; 83605; 83690; 85025; 85610; 87040; 96361; 96365; 96366; 96375; 96376; 99285

== ENCOUNTER → 2024-10-30 | Outpatient (CLI) | payer OTHER ==
[2024-10-30 15:10] LABS: African American GFR (CKD) >90 (>60 ml/min/1.73 sqM); Blood Urea Nitrogen 12 mg/dL (7-17); Non-African American GFR(CKD) >90 (>60 ml/min/1.73 sqM)
--- NOTE | 2024-10-30 16:41 | CT ---
EXAMINATION TYPE: CT abdomen pelvis w con DATE OF EXAM: 10/30/2024 4:31 PM COMPARISON: 10/06/2024 CLINICAL INDICATION: Female, 49 years old with history of K65.1 PERITONEAL ABSCESS; abdominal pain, d iverticulitis, peritoneal abscess TECHNIQUE: Axial CT abdomen pelvis w con;Sagittal and coronal reformats were created on a separate w orkstation. Contrast used:100 mL of Isovue 300 with IV Contrast, (none if empty) Oral contrast used: with Oral Contrast (none if empty) CT DLP: 439.9 mGycm, Automated exposure control for dose reduction was used. FINDINGS: LOWER CHEST: Unremarkable ABDOMEN LIVER: Unremarkable GALLBLADDER AND BILE DUCTS: The gallbladder is surgically absent. PANCREAS: Unremarkable. SPLEEN: Unremarkable. ADRENAL GLANDS: Unremarkable. KIDNEYS AND URETERS: No evidence of hydronephrosis or renal calculus. The ureters are unremarkable. PELVIS BLADDER: No evidence for wall thickening or mass given limitations of exam. REPRODUCTIVE: Suspected fibroid changes to the uterine fundus ABDOMEN & PELVIS STOMACH AND BOWEL: No evidence of bowel obstruction. Large amount stool throughout the colon. Decreas e in inflammation changes around the sigmoid colon. No organizing fluid collections. PERITONEUM/RETROPERITONEUM: No evidence of pneumoperitoneum or free fluid. VASCULATURE: No evidence of aortic aneurysm. MUSCULOSKELETAL: No acute osseous abnormalities LYMPH NODES: No gross evidence for lymphadenopathy. SOFT TISSUE/ABDOMINAL WALL: Unremarkable IMPRESSION: 1. Improved sigmoid diverticulitis changes with interval decrease in inflammation. No organizing flu id collections or free air. Fluid collection has resolved from prior imaging. 2. Large amount stool in the colon. [facility], , 10/30/2024 4:39 PM
== END | disposition home or self-care (01) ==
LOC: RADCTMAIN 14:27
PROVIDERS: ATTEND Internal Medicine Infectious Disease
DX: K65.1 Peritoneal abscess (principal); K57.20 Diverticulitis of large intestine with perforation and abscess without bleeding; R19.5 Other fecal abnormalities
CPT/HCPCS: 82565; 84520; 74177; 36415; Q9967

== ENCOUNTER 2024-12-07 14:53 | Inpatient (IN) | payer OTHER ==
[2024-12-07 15:18] LABS: Basophils % (A) 0 %; Eosinophils # (A) 0.3 k/uL (0-0.7); Eosinophils % (A) 2 %; HCT 46.7 % (34.0-46.0); HGB 14.6 gm/dL (11.4-16.0); Lymphocytes # (A) 0.5 k/uL (1.0-4.8); Lymphocytes % (A) 4 %; MCH 26.4 pg (25.0-35.0); MCHC 31.2 g/dL (31.0-37.0); MCV 84.7 fL (80.0-100.0); Monocytes # (A) 0.5 k/uL (0-1.0); Monocytes % (A) 4 %; Neutrophils # (A) 11.6 k/uL (1.3-7.7); Neutrophils % (A) 90 %; Platelet Count 274 k/uL (150-450); RBC 5.52 m/uL (3.80-5.40); RDW 13.9 % (11.5-15.5); WBC 12.9 k/uL (3.8-10.6)
[2024-12-07 15:22] LABS: Appearance,Urine Clear (Clear); Bacteria,Urine Rare /hpf; Bilirubin,Urine Negative (Negative); Blood,Urine Trace (Negative); Color,Urine Light Yellow; Glucose,Urine (UA) Negative (Negative); Ketones,Urine 1+ (Negative); Leukocyte Esterase,Urine Negative (Negative); Mucus,Urine Rare /hpf; Nitrite,Urine Negative (Negative); PH, Urine 5.5 (5.0-8.0); Protein,Urine Negative (Negative); RBC,Urine <1 /hpf (0-5); Specific Gravity,Urine 1.012 (1.001-1.035); Urobilinogen,Urine <2.0 mg/dL (<2.0); WBC,Urine <1 /hpf (0-5)
[2024-12-07 15:29] LABS: ALT 24 U/L (4-34); AST 23 U/L (14-36); African American GFR (CKD) >90 (>60 ml/min/1.73 sqM); Albumin 4.9 g/dL (3.5-5.0); Alkaline Phosphatase 58 U/L (38-126); Amylase 46 U/L (30-110); Anion Gap 10 mmol/L; Blood Urea Nitrogen 13 mg/dL (7-17); Calcium 9.6 mg/dL (8.4-10.2); Carbon Dioxide 25 mmol/L (22-30); Chloride 101 mmol/L (98-107); Glucose 87 mg/dL (74-99); Lipase 130 U/L (23-300); Non-African American GFR(CKD) >90 (>60 ml/min/1.73 sqM); Potassium 4.3 mmol/L (3.5-5.1); Sodium 136 mmol/L (137-145); Total Bilirubin 0.9 mg/dL (0.2-1.3); Total Protein 7.7 g/dL (6.3-8.2)
[2024-12-07 15:30] LABS: Partial Thromboplastin Time 23.5 sec (22.0-30.0); Prothrombin Time 10.9 sec (10.0-12.5)
--- NOTE | 2024-12-07 15:35 | XR ---
EXAMINATION TYPE: XR KUB DATE OF EXAM: 12/07/2024 3:30 PM COMPARISON: None. CLINICAL INDICATION: Female, 49 years old with history of abdominal pain, TECHNIQUE: XR KUB view(s) obtained. FINDINGS: Scattered air-fluid levels within the left upper quadrant. Bowel gas within the colon. Psoas margins are normal. No organomegaly is present. No suspicious calcifications evident. IMPRESSION: 1. Unremarkable Abdomen [facility], , 12/07/2024 3:33 PM
[2024-12-07] MEDS: MORPHINE SULFATE 4 MG/ML SYRINGE IVP STA (16:37)
[2024-12-07] MEDS: ONDANSETRON 4 MG/2 ML VIAL IVP STA (16:37)
[2024-12-07] MEDS: SODIUM CHLORIDE 0.9% 1,000 ML IV STA ×3 (16:41→18:41)
--- NOTE | 2024-12-07 16:45 | ED ---
Abdominal Pain HPI - General Chief Complaint: Abdominal Pain Stated Complaint: nausea, abd pain Time Seen by Provider: 12/07/24 16:09 Source: patient, family, RN notes reviewed Mode of arrival: ambulatory Limitations: no limitations - History of Present Illness Initial Comments: This is a 49-year-old female who presents to the emergency department for ab dominal pain. States that it started yesterday. Reports a history of diverticulitis and states that it feels similar. Pain is in the lower abdomen but worse in the left lower quadrant. Reports dealing with both diarrhea and constipation. Also states that she has nausea but no vomiting. Denies any fevers/chills. MD Complaint: abdominal pain - Related Data Home Medications Medication Instructions Recorded Confirmed Dextroamphetamine/Amphetamine 20 mg PO DAILY 09/30/24 12/07/24 [Adderall] buPROPion XL [Wellbutrin XL] 150 mg PO DAILY 09/30/24 12/07/24 Semaglutide 1mg Compound 1 mg SQ MO 12/07/24 12/07/24 Allergies Allergy/AdvReac Type Severity Reaction Status Date / Time azithromycin AdvReac Nausea & Verified 12/07/24 19:22 Vomiting & Diarrhea Review of Systems ROS Statement: Those systems with pertinent positive or pertinent negative responses have been documented in the HPI. ROS Other: All systems not noted in ROS Statement are negative. Past Medical History Past Medical History: No Reported History Additional Past Medical History / Comment(s): diverticulitis History of Any Multi-Drug Resistant Organisms: None Reported Past Surgical History: Adenoidectomy, Cholecystectomy, Tonsillectomy Past Psychological History: Anxiety, Depression Smoking Status: Vaper Past Alcohol Use History: Rare Past Drug Use History: None Reported General Exam Limitations: no limitations General appearance: alert, in no apparent distress Head exam: Present: atraumatic, normocephalic, normal inspection Respiratory exam: Present: normal lung sounds bilaterally. Absent: respiratory distress, wheezes, rales, rhonchi, stridor Cardiovascular Exam: Present: regular rate, normal rhythm GI/Abdominal exam: Present: soft, tenderness (LLQ), normal bowel sounds. Absent: distended Neurological exam: Present: alert, oriented X3, CN II-XII intact Psychiatric exam: Present: normal affect, normal mood Skin exam: Present: warm, dry, intact, normal color. Absent: rash Course Vital Signs 12/07/24 12/07/24 12/07/24 14:55 18:14 18:44 Temperature 98.8 F Pulse Rate 118 H 98 100 Respiratory 20 20 18 Rate Blood Pressure 99/71 137/80 116/80 O2 Sat by Pulse 98 98 98 Oximetry 12/07/24 20:14 Temperature Pulse Rate 94 Respiratory 18 Rate Blood Pressure 114/80 O2 Sat by Pulse 97 Oximetry Medical Decision Making - Medical Decision Making This is a 49-year-old female who presents to the emergency department for abdominal pain. Was pt. sent in by a medical professional or institution? @ -No Did you speak to anyone other than the patient for history? @ -No Did you review nursing and triage notes? @ -Yes, and I agree, it is accurate with regards to the patient's symptoms. Were old charts reviewed? @ -No Differential Diagnosis? @ -Differential Abdominal Pain Women: Appendicitis, Cholecystitis, diverticulosis, ischemic bowel, pancreatitis, hepatitis, UTI, gastroenteritis, AAA, incarcerated hernia, bowel obstruction, constipation, inflammatory bowel, hepatitis, peptic ulcer disease, splenic infarction, perforated viscus, vulvitis, ovarian torsion, PID, kidney stone, placenta abruption, this is not meant to be an all-inclusive list EKG interpreted by me (3pts min.)? @ -EKG interpreted by me demonstrating the following: Sinus rhythm. Ventricular rate 81 bpm, MD interval 175 ms, QRS duration 91 ms, QTc 412 ms. X-rays interpreted by me (1pt min.)? @ -KUB x-ray obtained. My interpretation identifies no dilation of the bowel loops. CT interpreted by me (1pt min.)? @ -CT scan of the abdomen and pelvis obtained. My interpretation identifies wall thickening and inflammation around the sigmoid colon. U/S interpreted by me (1pt. min.)? @ -Not obtained What testing was considered but not performed? (CT, X-rays, U/S, labs)? Why? @ -None What meds were considered but not given? Why? @ -None Did you discuss the management of the patient with other professionals? @ -Yes, Grace Chapman with [facility], who accepts the patient for admission. Did you reconcile home meds? @ -Yes Was smoking cessation discussed for >3mins.? @ -No Was critical care preformed (if so, how long)? @ -No Were there social determinants of health that impacted care today? How? (Homelessness, low income, unemployed, alcoholism, drug addiction, transportation, low edu. Level, literacy, decrease access to med. care, alf, rehab)? @ -No Was there de-escalation of care discussed even if they declined? (Discuss DNR or withdrawal of care, Hospice)? @ -No What co-morbidities impacted this encounter? (DM, HTN, Smoking, COPD, CAD, Cancer, CVA, Hep., AIDS, mental health diagnosis, sleep apnea, morbid obesity)? @ -Diverticulosis Was patient admitted / discharged? @ -Admitted. Lab work demonstrates leukocytosis with a white blood cell count of 12.9. KUB x-ray obtained revealing no acute process. CT scan of the abdomen and pelvis demonstrates acute complicated diverticulitis with perisigmoid gas and fluid collection abutting the left ovary concerning for abscess. She had been given 2 L of IV fluids and she was started on maintenance fluids at 130 mL an hour. Blood culture obtained and she was started on Zosyn. Patient admitted to medicine for complicated diverticulitis with abscess formation. Consult placed for general surgery and infectious disease. Patient kept n.p.o. as well. Case discussed with ED attending Dr. Sharp. Undiagnosed new problem with uncertain prognosis? @ -None Drug Therapy requiring intensive monitoring for toxicity (Heparin, Nitro, Insulin, Cardizem)? @ -None Were any procedures done? @ -None Diagnosis/symptom? @ -Complicated diverticulitis with abscess formation Acute, or Chronic, or Acute on Chronic? @ -Acute Uncomplicated (without systemic symptoms) or Complicated (systemic symptoms)? @ -Complicated Side effects of treatment? @ -None Exacerbation, Progression, or Severe Exacerbation] @ -Not applicable Poses a threat to life or bodily function? @ -Yes, can lead to life-threatening infection - Lab Data Result diagrams: 12/07/24 14:58 12/07/24 14:58 Lab Results 12/07/24 12/07/24 12/07/24 Range/Units 14:58 14:58 14:58 WBC 12.9 H (3.8-10.6) k/uL RBC 5.52 H (3.80-5.40) m/uL Hgb 14.6 (11.4-16.0) gm/dL Hct 46.7 H (34.0-46.0) % MCV 84.7 (80.0-100.0) fL MCH 26.4 (25.0-35.0) pg MCHC 31.2 (31.0-37.0) g/dL RDW 13.9 (11.5-15.5) % Plt Count 274 (150-450) k/uL MPV 7.0 Neutrophils % 90 % Lymphocytes % 4 % Monocytes % 4 % Eosinophils % 2 % Basophils % 0 % Neutrophils # 11.6 H (1.3-7.7) k/uL Lymphocytes # 0.5 L (1.0-4.8) k/uL Monocytes # 0.5 (0-1.0) k/uL Eosinophils # 0.3 (0-0.7) k/uL Basophils # 0.0 (0-0.2) k/uL PT 10.9 (10.0-12.5) sec INR 1.0 (<1.2) APTT 23.5 (22.0-30.0) sec Sodium (137-145) mmol/L Potassium (3.5-5.1) mmol/L Chloride (98-107) mmol/L Carbon Dioxide (22-30) mmol/L Anion Gap mmol/L BUN (7-17) mg/dL Creatinine (0.52-1.04) mg/dL Est GFR (CKD-EPI)AfAm (>60 ml/min/1.73 sqM) Est GFR (CKD-EPI)NonAf (>60 ml/min/1.73 sqM) Glucose (74-99) mg/dL Plasma Lactic Acid Robe (0.7-2.0) mmol/L Calcium (8.4-10.2) mg/dL Total Bilirubin (0.2-1.3) mg/dL AST (14-36) U/L ALT (4-34) U/L Alkaline Phosphatase (38-126) U/L Total Protein (6.3-8.2) g/dL Albumin (3.5-5.0) g/dL Amylase (30-110) U/L Lipase (23-300) U/L Urine Color Light Yellow Urine Appearance Clear (Clear) Urine pH 5.5 (5.0-8.0) Ur Specific [place] 1.012 (1.001-1.035) Urine Protein Negative (Negative) Urine Glucose (UA) Negative (Negative) Urine Ketones 1+ H (Negative) Urine Blood Trace H (Negative) Urine Nitrite Negative (Negative) Urine Bilirubin Negative (Negative) Urine Urobilinogen <2.0 (<2.0) mg/dL Ur Leukocyte Esterase Negative (Negative) Urine RBC <1 (0-5) /hpf Urine WBC <1 (0-5) /hpf Urine Bacteria Rare H (None) /hpf Urine Mucus Rare H (None) /hpf 12/07/24 12/07/24 Range/Units 14:58 14:58 WBC (3.8-10.6) k/uL RBC (3.80-5.40) m/uL Hgb (11.4-16.0) gm/dL Hct (34.0-46.0) % MCV (80.0-100.0) fL MCH (25.0-35.0) pg MCHC (31.0-37.0) g/dL RDW (11.5-15.5) % Plt Count (150-450) k/uL MPV Neutrophils % % Lymphocytes % % Monocytes % % Eosinophils % % Basophils % % Neutrophils # (1.3-7.7) k/uL Lymphocytes # (1.0-4.8) k/uL Monocytes # (0-1.0) k/uL Eosinophils # (0-0.7) k/uL Basophils # (0-0.2) k/uL PT (10.0-12.5) sec INR (<1.2) APTT (22.0-30.0) sec Sodium 136 L (137-145) mmol/L Potassium 4.3 (3.5-5.1) mmol/L Chloride 101 (98-107) mmol/L Carbon Dioxide 25 (22-30) mmol/L Anion Gap 10 mmol/L BUN 13 (7-17) mg/dL Creatinine 0.76 (0.52-1.04) mg/dL Est GFR (CKD-EPI)AfAm >90 (>60 ml/min/1.73 sqM) Est GFR (CKD-EPI)NonAf >90 (>60 ml/min/1.73 sqM) Glucose 87 (74-99) mg/dL Plasma Lactic Acid Robe 0.8 (0.7-2.0) mmol/L Calcium 9.6 (8.4-10.2) mg/dL Total Bilirubin 0.9 (0.2-1.3) mg/dL AST 23 (14-36) U/L ALT 24 (4-34) U/L Alkaline Phosphatase 58 (38-126) U/L Total Protein 7.7 (6.3-8.2) g/dL Albumin 4.9 (3.5-5.0) g/dL Amylase 46 (30-110) U/L Lipase 130 (23-300) U/L Urine Color Urine Appearance (Clear) Urine pH (5.0-8.0) Ur Specific [place] (1.001-1.035) Urine Protein (Negative) Urine Glucose (UA) (Negative) Urine Ketones (Negative) Urine Blood (Negative) Urine Nitrite (Negative) Urine Bilirubin (Negative) Urine Urobilinogen (<2.0) mg/dL Ur Leukocyte Esterase (Negative) Urine RBC (0-5) /hpf Urine WBC (0-5) /hpf Urine Bacteria (None) /hpf Urine Mucus (None) /hpf - Radiology Data Radiology results: report reviewed, image reviewed Disposition Clinical Impression: Diverticulitis of intestine with abscess, Sigmoid diverticulitis Disposition: ADMITTED IP TO THIS [facility] Condition: Serious
--- NOTE | 2024-12-07 18:07 | CT ---
EXAMINATION TYPE: CT abdomen pelvis w con CT DLP: 615.4 mGycm, Automated exposure control for dose reduction was used. DATE OF EXAM: 12/07/2024 5:44 PM COMPARISON: Multiple CT abdomen pelvis with most recent 10/30/2024 CLINICAL INDICATION:Female, 49 years old with history of llq abdomen pain; diverticulitis TECHNIQUE: Standard CT of the abdomen and pelvis following the administration of 100 cc of Isovue 3 00 IV contrast material. Coronal and sagittal reformats were performed. FINDINGS: LOWER CHEST: Minimal posterior dependent subsegmental atelectasis is noted. ABDOMEN LIVER: Focal fatty infiltration adjacent to the falciform ligament in segment IVb GALLBLADDER AND BILE DUCTS: The gallbladder is surgically absent. No biliary ductal dilatation. PANCREAS: Unremarkable. SPLEEN: Unremarkable. ADRENAL GLANDS: Unremarkable. KIDNEYS AND URETERS: No evidence of hydronephrosis or renal calculus. The kidneys enhance symmetrical ly. Contrast is demonstrated within both collecting systems on the delayed phase. PELVIS BLADDER: Unremarkable REPRODUCTIVE: Unremarkable anteverted appearance of the uterus. There is inflammatory changes with fo ci of gas and fluid in the region of the left adnexa/ovary as described below. Right ovarian corpus l uteum ABDOMEN & PELVIS STOMACH AND BOWEL: Stomach and duodenum are unremarkable. There is wall thickening with surrounding i nflammatory changes involving the sigmoid colon with diverticula. There is fluid and gas identified i nferior to the sigmoid colon abutting the left ovary measuring 3.2 x 2.3 cm. The appendix is within n ormal limits. No evidence of bowel obstruction. PERITONEUM: No evidence of pneumoperitoneum. VASCULATURE: No evidence of aortic aneurysm. MUSCULOSKELETAL: No acute osseous abnormalities. Mild disc degeneration changes are present throughou t the thoracolumbar spine. LYMPH NODES: No evidence for lymphadenopathy. SOFT TISSUE/ABDOMINAL WALL: Unremarkable IMPRESSION: Acute complicated sigmoid diverticulitis with perisigmoid gas and fluid collection abutting the left ovary concerning for abscess. Findings called to and discussed with SEAN Valle at 6:04 PM on 12/07/2024. [facility], , 12/07/2024 6:05 PM
[2024-12-07] MEDS ORDERED: HYDROmorphone 0.5 MG/0.5 ML SYRINGE IVP PRN (18:19)
[2024-12-07] MEDS ORDERED: NALOXONE 0.4 MG/ML 1 ML VIAL IV PRN (18:19)
[2024-12-07] MEDS: HYDROmorphone 1 MG/ML 1 ML SYRINGE IVP PRN (18:41)
[2024-12-07] MEDS: PIPERACILLIN-TAZOBACTAM 3.375 GM in SODIUM CHLORIDE 0.9% 100 ML IVPB SCH (18:42)
[2024-12-07] MEDS: ONDANSETRON 4 MG/2 ML VIAL IVP PRN (20:54)
[2024-12-08] MEDS: ACETAMINOPHEN TAB 325 MG TAB PO PRN (00:58)
[2024-12-08 04:19] LABS: Basophils % (A) 0 %; Eosinophils % (A) 0 %; HCT 38.2 % (34.0-46.0); HGB 11.9 gm/dL (11.4-16.0); Lymphocytes # (A) 0.6 k/uL (1.0-4.8); Lymphocytes % (A) 7 %; MCHC 31.1 g/dL (31.0-37.0); MCV 86.6 fL (80.0-100.0); Mean Platelet Volume 6.9; Monocytes # (A) 0.3 k/uL (0-1.0); Monocytes % (A) 3 %; Neutrophils # (A) 8.6 k/uL (1.3-7.7); Neutrophils % (A) 89 %; Platelet Count 206 k/uL (150-450); RBC 4.41 m/uL (3.80-5.40); RDW 13.6 % (11.5-15.5); WBC 9.6 k/uL (3.8-10.6)
[2024-12-08] MEDS: NON FORMULARY DRUG (Dextroamphetamine/Amphetamine [Adderall] 20 MG Tablet) PO SCH (08:36)
[2024-12-08 08:41] LABS: BUN/Creat Ratio 13.57 Ratio (12.00-20.00); Blood Urea Nitrogen 9.5 mg/dL (9.0-27.0); Carbon Dioxide 19.9 mmol/L (21.6-31.8); Chloride 107 mmol/L (96-109); Glucose 90 mg/dL (70-110); Magnesium 1.8 mg/dL (1.5-2.4); Potassium 3.8 mmol/L (3.5-5.5); Sodium 136 mmol/L (135-145)
[2024-12-08 08:42] LABS: ALT 54 U/L (8-44); AST 48 U/L (13-35); Albumin 3.7 g/dL (3.8-4.9); Albumin/Globulin Ratio 1.95 Ratio (1.60-3.17); Alkaline Phosphatase 61 U/L (41-126); Globulin 1.9 g/dL (1.6-3.3); Total Bilirubin 0.4 mg/dL (0.3-1.2); Total Protein 5.6 g/dL (6.2-8.2)
[2024-12-08] MEDS: PANTOPRAZOLE 40 MG/10 ML VIAL IV SCH (08:46)
[2024-12-08] MEDS: buPROPion XL 150 MG TAB.ER.24H PO SCH (08:48)
--- NOTE | 2024-12-08 11:56 | P.GSCN ---
History of Present Illness Consult date: 12/08/24 History of present illness: CHIEF COMPLAINT: Abdominal pain HISTORY OF PRESENT ILLNESS: This is a 49-year-old female with a known history of diverticulitis with microperforation and abscess in September 2024. Patient reports that she completed IV and then oral antibiotics. However, she has not been feeling well she is again having this intermittent left lower quadrant abdominal pain. Yesterday the pain worsened. She also started having vomiting. She has been having chills and sweats. She did report having a bowel movement yesterday. She had a CT scan abdomen and pelvis completed that reported acute complicated sigmoid diverticulitis with perisigmoid gas and fluid collection abutting the left ovary concerning for abscess. Past surgical history includes cholecystectomy. Patient has been having low-grade temps 100.9 and has been mildly tachycardic on admission. PAST MEDICAL HISTORY: See below PAST SURGICAL HISTORY: See below MEDICATIONS: See below ALLERGIES: See below SOCIAL HISTORY: No illicit drug use. REVIEW OF SYSTEMS: CONSTITUTIONAL: Denies fever or chills. HEENT: Denies blurred vision, vision changes, or eye pain. Denies hemoptysis CARDIOVASCULAR: Denies chest pain or pressure. RESPIRATORY: No shortness of breath. GASTROINTESTINAL: See HPI for pertinent findings HEMATOLOGIC: Denies bleeding disorders. GENITOURINARY: Denies any blood in urine or increased urinary frequency. SKIN: Denies pruitis. Denies rash. PHYSICAL EXAM: VITAL SIGNS: Reviewed GENERAL: Well-developed in no acute distress. HEENT: No sclera icterus. Extraocular movements grossly intact. Moist buccal mucosa. Head is atraumatic, normocephalic. No nasal drainage. ABDOMEN: Soft. Nondistended. Tenderness with palpation of left lower quadrant, suprapubic area and mild tenderness in the right lower quadrant. Guarding noted with palpation of the left lower quadrant. NEUROLOGIC: Alert and oriented. Cranial nerves II through XII grossly intact. LABORATORY DATA: WBC is down from 12.9-9.6 Hgb 11.9 platelets 206 Sodium 136 potassium 3.8 creatinine 0.7 IMAGING: CT scan abdomen pelvis as stated above ASSESSMENT: 1. Acute complicated sigmoid diverticulitis with perisigmoid gas and fluid collection that abuts the left ovary concerning for abscess 2. Sepsis present on admission due to diverticulitis 3. History of diverticulitis with microperforation and abscess in September 2024 PLAN: -Continue IV antibiotics -Keep patient n.p.o. -Increase IV fluids to 100 mL/h -IV Tylenol and Toradol added for pain control -Continue to monitor -Further recommendations forthcoming per surgeon Physician Assembly Machine Tool Setter note has been reviewed by physician. Signing provider agrees with the documented findings, assessment, and plan of care. I have personally seen and examined the patient, reviewed the SERVICE SUPERVISOR /PAs history, exam and MDM and agree with the assessment and plan as written. Based on total visit time, I have performed more than 50% of the visit. As above: Patient with recurrent sigmoid diverticulitis. Small abscess on CAT scan. Continue antibiotics. Tentatively plan early evaluation by colorectal surgery for laparoscopic sigmoid colectomy short after discharge. May resume liquid diet. Past Medical History Past Medical History: No Reported History Additional Past Medical History / Comment(s): diverticulitis History of Any Multi-Drug Resistant Organisms: None Reported Past Surgical History: Adenoidectomy, Cholecystectomy, Tonsillectomy Past Anesthesia/Blood Transfusion Reactions: No Reported Reaction Past Psychological History: Anxiety, Depression Smoking Status: Vaper Past Alcohol Use History: Rare Past Drug Use History: None Reported Medications and Allergies Home Medications Medication Instructions Recorded Confirmed Type Dextroamphetamine/Amphetamine 20 mg PO DAILY 09/30/24 12/07/24 History [Adderall] buPROPion XL [Wellbutrin XL] 150 mg PO DAILY 09/30/24 12/07/24 History Semaglutide 1mg Compound 1 mg SQ MO 12/07/24 12/07/24 History Allergies Allergy/AdvReac Type Severity Reaction Status Date / Time azithromycin AdvReac Nausea & Verified 12/07/24 19:22 Vomiting & Diarrhea Surgical - Exam Vital Signs Temp Pulse Resp BP Pulse Ox 98.8 F 118 H 20 99/71 98 12/07/24 14:55 12/07/24 14:55 12/07/24 14:55 12/07/24 14:55 12/07/24 14:55 Results - Labs 12/08/24 03:28 12/08/24 03:28 Abnormal Lab Results - Last 24 Hours (Table) 12/07/24 12/07/24 12/07/24 Range/Units 14:58 14:58 14:58 WBC 12.9 H (3.8-10.6) k/uL RBC 5.52 H (3.80-5.40) m/uL Hct 46.7 H (34.0-46.0) % Neutrophils # 11.6 H (1.3-7.7) k/uL Lymphocytes # 0.5 L (1.0-4.8) k/uL Sodium 136 L (137-145) mmol/L Carbon Dioxide (21.6-31.8) mmol/L Calcium (8.7-10.3) mg/dL AST (13-35) U/L ALT (8-44) U/L Total Protein (6.2-8.2) g/dL Albumin (3.8-4.9) g/dL Urine Ketones 1+ H (Negative) Urine Blood Trace H (Negative) Urine Bacteria Rare H (None) /hpf Urine Mucus Rare H (None) /hpf 12/08/24 12/08/24 Range/Units 03:28 03:28 WBC (3.8-10.6) k/uL RBC (3.80-5.40) m/uL Hct (34.0-46.0) % Neutrophils # 8.6 H (1.3-7.7) k/uL Lymphocytes # 0.6 L (1.0-4.8) k/uL Sodium (137-145) mmol/L Carbon Dioxide 19.9 L (21.6-31.8) mmol/L Calcium 8.0 L (8.7-10.3) mg/dL AST 48 H (13-35) U/L ALT 54 H (8-44) U/L Total Protein 5.6 L (6.2-8.2) g/dL Albumin 3.7 L (3.8-4.9) g/dL Urine Ketones (Negative) Urine Blood (Negative) Urine Bacteria (None) /hpf Urine Mucus (None) /hpf Diabetes panel 12/07/24 12/08/24 Range/Units 14:58 03:28 Sodium 136 L 136 (137-145) mmol/L Potassium 4.3 3.8 (3.5-5.1) mmol/L Chloride 101 107 (98-107) mmol/L Carbon Dioxide 25 19.9 L (22-30) mmol/L BUN 13 9.5 (7-17) mg/dL Creatinine 0.76 0.7 (0.52-1.04) mg/dL Glucose 87 90 (74-99) mg/dL Calcium 9.6 8.0 L (8.4-10.2) mg/dL AST 23 48 H (14-36) U/L ALT 24 54 H (4-34) U/L Alkaline Phosphatase 58 61 (38-126) U/L Total Protein 7.7 5.6 L (6.3-8.2) g/dL Albumin 4.9 3.7 L (3.5-5.0) g/dL Calcium panel 12/07/24 12/08/24 Range/Units 14:58 03:28 Calcium 9.6 8.0 L (8.4-10.2) mg/dL Albumin 4.9 3.7 L (3.5-5.0) g/dL Pituitary panel 12/07/24 12/08/24 Range/Units 14:58 03:28 Sodium 136 L 136 (137-145) mmol/L Potassium 4.3 3.8 (3.5-5.1) mmol/L Chloride 101 107 (98-107) mmol/L Carbon Dioxide 25 19.9 L (22-30) mmol/L BUN 13 9.5 (7-17) mg/dL Creatinine 0.76 0.7 (0.52-1.04) mg/dL Glucose 87 90 (74-99) mg/dL Calcium 9.6 8.0 L (8.4-10.2) mg/dL Adrenal panel 12/07/24 12/08/24 Range/Units 14:58 03:28 Sodium 136 L 136 (137-145) mmol/L Potassium 4.3 3.8 (3.5-5.1) mmol/L Chloride 101 107 (98-107) mmol/L Carbon Dioxide 25 19.9 L (22-30) mmol/L BUN 13 9.5 (7-17) mg/dL Creatinine 0.76 0.7 (0.52-1.04) mg/dL Glucose 87 90 (74-99) mg/dL Calcium 9.6 8.0 L (8.4-10.2) mg/dL Total Bilirubin 0.9 0.4 (0.2-1.3) mg/dL AST 23 48 H (14-36) U/L ALT 24 54 H (4-34) U/L Alkaline Phosphatase 58 61 (38-126) U/L Total Protein 7.7 5.6 L (6.3-8.2) g/dL Albumin 4.9 3.7 L (3.5-5.0) g/dL
[2024-12-08] MEDS: KETOROLAC 15 MG/ML 1 ML VIAL IVP SCH (12:38)
[2024-12-08] MEDS: ACETAMINOPHEN IV (For NPO) 1,000 MG in EMPTY BAG 1 BAG IVPB SCH (12:41)
[2024-12-08] MEDS: SODIUM CHLORIDE 0.9% 1,000 ML IV SCH (12:56)
--- NOTE | 2024-12-08 16:08 | P.HPIM ---
History of Present Illness H&P Date: 12/08/24 This is a pleasant 49-year-old female who presented to the emergency department with intense abdominal pain with concerns of diverticulitis with concerning increase in abscess formation. Patient follows with Dr. Zarate in the outpatient setting with past medical history of previous diverticulitis with microperforation, anxiety/depression. Patient rarely drinks alcohol and admits to vaping and denies any other illicit drug use. Patient has been seeing Dr. Aquino in the outpatient setting for this diverticulitis and had been on a number of antibiotics outpatient and was scheduled in the outpatient setting for CT as patient was continuing to have complications although her insurance was giving her difficulties and a repeat CAT scan as she was recently hospitalized for the same. In the ER patient underwent repeat CT abdomen pelvis which shows acute complicated sigmoid diverticulitis with perisigmoid gas and fluid collection abutting the left ovary concerning for abscess measuring approximately 3.2 x 2.3 cm. EKG shows sinus rhythm, labs reviewed and initially had a mildly elevated white count of 12.9, hemoglobin stable at 14.6, platelets 274, INR 1.0, sodium 136, potassium 4.3, BUN 13 and creatinine 0.76, magnesium 1.8, ALT/AST mildly elevated although initially normal on yesterday's exam, amylase 46, lipase 130, urinalysis was negative. Patient was admitted with infectious disease and general surgery on consult and was made n.p.o. started on fluid hydration. Patient does continue to have ongoing fevers overnight with Tmax 100.9. REVIEW OF SYSTEMS: CONSTITUTIONAL: No fever, no malaise, reports of fatigue. HEENT: No recent visual problems or hearing problems. Denied any sore throat. CARDIOVASCULAR: No chest pain, orthopnea, PND, no palpitations, no syncope. PULMONARY: No shortness of breath, no cough, no hemoptysis. GASTROINTESTINAL: Reports of diarrhea, reports nausea, no vomiting, reports diffuse lower abdominal pain. NEUROLOGICAL: No headaches, no weakness, no numbness. HEMATOLOGICAL: Denies any bleeding or petechiae. GENITOURINARY: Denies any burning micturition, frequency, or urgency. MUSCULOSKELETAL/RHEUMATOLOGICAL: Denies any joint pain, swelling, or any muscle pain. ENDOCRINE: Denies any polyuria or polydipsia. The rest of the 14-point review of systems is negative. PHYSICAL EXAMINATION: GENERAL: The patient is alert and oriented x3, ill-appearing. Well developed, well nourished. HEENT: Pupils are round and equally reacting to light. EOMI. No scleral icterus. No conjunctival pallor. Normocephalic, atraumatic. No pharyngeal erythema. No thyromegaly. CARDIOVASCULAR: S1 and S2 present. No murmurs, rubs, or gallops. PULMONARY: Chest is clear to auscultation, no wheezing or crackles. ABDOMEN: Soft, mildly tender on palpation, nondistended, normoactive bowel sounds. No palpable organomegaly. MUSCULOSKELETAL: No joint swelling or deformity. EXTREMITIES: No cyanosis, clubbing, or pedal edema. NEUROLOGICAL: Gross neurological examination did not reveal any focal deficits. SKIN: No rashes. Assessment: Abdominal pain with acute complicated sigmoid diverticulitis with perisigmoid gas and fluid collection abutting the left ovary concerning for abscess formation measuring approximately 3.2 x 2.3 cm Sepsis, present on admission secondary to diverticulitis History of recent diverticulitis with microperforation in September 2024 History of cholecystectomy Vaping Anxiety/depression GI prophylaxis DVT prophylaxis Full code Plan: Patient was admitted with general surgery on consult. Patient follows with Dr. Aquino in the outpatient setting with a recent history of diverticulitis with microperforation in September. Patient had been following outpatient having increasing pain noted to have nausea with diarrhea and vomiting and came here for further evaluation. Patient was tacky, febrile, and elevated white count with concerns of sepsis likely secondary to diverticulitis with concerns of abscess formation. No immediate plans for surgical intervention at this time recommending mild bowel rest and continued IV antibiotic therapy with hydration. Patient was n.p.o. and may slowly advance as tolerated per surgery, continue hydration and pain regimen Follow-up on repeat labs and replace electrolytes per protocol Monitor for fevers and treat with Tylenol and/or Motrin Encourage increase activity as tolerated Infectious disease consulted and pending as well The impression and plan of care has been dictated by Grace Chapman, Nurse Practitioner as directed. Dr. Concepcion MD I have performed a history and examination and MDM of this patient, discussed the same with the dictator, and agree with the dictator's assessment and plan as written ,documented as a scribe. Based on total visit time, I have performed more than 50% of the visit. Past Medical History Past Medical History: No Reported History Additional Past Medical History / Comment(s): diverticulitis History of Any Multi-Drug Resistant Organisms: None Reported Past Surgical History: Adenoidectomy, Cholecystectomy, Tonsillectomy Past Anesthesia/Blood Transfusion Reactions: No Reported Reaction Past Psychological History: Anxiety, Depression Smoking Status: Vaper Past Alcohol Use History: Rare Past Drug Use History: None Reported Medications and Allergies Home Medications Medication Instructions Recorded Confirmed Type Dextroamphetamine/Amphetamine 20 mg PO DAILY 09/30/24 12/07/24 History [Adderall] buPROPion XL [Wellbutrin XL] 150 mg PO DAILY 09/30/24 12/07/24 History Semaglutide 1mg Compound 1 mg SQ MO 12/07/24 12/07/24 History Allergies Allergy/AdvReac Type Severity Reaction Status Date / Time azithromycin AdvReac Nausea & Verified 12/07/24 19:22 Vomiting & Diarrhea Physical Exam Vitals: Vital Signs Temp Pulse Pulse Resp BP BP Pulse Ox 12/08/24 07:50 105 H 18 12/08/24 02:30 99.4 F 12/08/24 00:58 100.9 F H 12/08/24 00:16 100.2 F H 105 H 18 111/73 98 12/07/24 20:35 105 H 12/07/24 20:23 98.6 F 104 H 20 120/79 98 12/07/24 20:14 94 18 114/80 97 12/07/24 18:44 100 18 116/80 98 12/07/24 18:14 98 20 137/80 98 12/07/24 14:55 98.8 F 118 H 20 99/71 98 Intake and Output 12/07/24 12/08/24 12/08/24 22:59 06:59 14:59 Other: # Voids 3 1 # Emeses 1 Weight 55.792 kg Results CBC & Chem 7: 12/08/24 03:28 12/08/24 03:28 Labs: Abnormal Lab Results - Last 24 Hours (Table) 12/07/24 12/07/24 12/07/24 Range/Units 14:58 14:58 14:58 WBC 12.9 H (3.8-10.6) k/uL RBC 5.52 H (3.80-5.40) m/uL Hct 46.7 H (34.0-46.0) % Neutrophils # 11.6 H (1.3-7.7) k/uL Lymphocytes # 0.5 L (1.0-4.8) k/uL Sodium 136 L (137-145) mmol/L Carbon Dioxide (21.6-31.8) mmol/L Calcium (8.7-10.3) mg/dL AST (13-35) U/L ALT (8-44) U/L Total Protein (6.2-8.2) g/dL Albumin (3.8-4.9) g/dL Urine Ketones 1+ H (Negative) Urine Blood Trace H (Negative) Urine Bacteria Rare H (None) /hpf Urine Mucus Rare H (None) /hpf 12/08/24 12/08/24 Range/Units 03:28 03:28 WBC (3.8-10.6) k/uL RBC (3.80-5.40) m/uL Hct (34.0-46.0) % Neutrophils # 8.6 H (1.3-7.7) k/uL Lymphocytes # 0.6 L (1.0-4.8) k/uL Sodium (137-145) mmol/L Carbon Dioxide 19.9 L (21.6-31.8) mmol/L Calcium 8.0 L (8.7-10.3) mg/dL AST 48 H (13-35) U/L ALT 54 H (8-44) U/L Total Protein 5.6 L (6.2-8.2) g/dL Albumin 3.7 L (3.8-4.9) g/dL Urine Ketones (Negative) Urine Blood (Negative) Urine Bacteria (None) /hpf Urine Mucus (None) /hpf Thrombosis Risk Factor Assmnt - Choose All That Apply Any of the Below Risk Factors Present?: No Each Factor Represents 1 point: Age 41-60 years Other Risk Factors: No Other congenital or acquired thrombophilia - If yes, enter type in comment: No Thrombosis Risk Factor Assessment Total Risk Factor Score: 1 Thrombosis Risk Factor Assessment Level: Very Low Risk
--- NOTE | 2024-12-08 22:31 | P.CONS ---
History of Present Illness - Reason for Consult Consult date: 12/08/24 Diverticulitis with abscess formation Requesting physician: Charlette Knox - Chief Complaint Abdominal pain x few days - History of Present Illness Patient is a 49-year-old female with a past medical history significant for anxiety depression perforated diverticulitis with an abscess requiring IV antibiotic therapy presenting to the hospital for evaluation of abdominal pain patient mention she has not been feeling well for more than a week and did have some discomfort was involved in the outpatient setting by her surgeon who requested for a CT which was not approved by insurance patient mention her symptoms started getting worse with more sharp pain to the left lower quadrant area describing it to be sharp severe in intensity without radiation has been dealing with diarrhea and constipation some nausea but no vomiting denies high-grade fever or chills with the symptoms the patient has been evaluated on presentation to the hospital patient was initially febrile subsequently spiked a fever of 100.9 F patient was tachycardic but not hypotensive or hypoxic no need for supplemental oxygen did have a white count of 12.9 with a left shift creatinine 0.76 electrolytes are normal liver enzymes are normal urine has been negative patient did have a CT of abdominal pelvis that has been suggestive of acute complicated diverticulitis with perisigmoid gas and fluid collection concerning for an abscess patient was started on Zosyn infectious disease was consulted for further management of antibiotic therapy Review of Systems Positive point and negatives has been mentioned in the HPI, complete review of systems was performed and all other systems are negative Past Medical History Past Medical History: No Reported History Additional Past Medical History / Comment(s): diverticulitis History of Any Multi-Drug Resistant Organisms: None Reported Past Surgical History: Adenoidectomy, Cholecystectomy, Tonsillectomy Past Anesthesia/Blood Transfusion Reactions: No Reported Reaction Past Psychological History: Anxiety, Depression Smoking Status: Vaper Past Alcohol Use History: Rare Past Drug Use History: None Reported Medications and Allergies Home Medications Medication Instructions Recorded Confirmed Type Dextroamphetamine/Amphetamine 20 mg PO DAILY 09/30/24 12/07/24 History [Adderall] buPROPion XL [Wellbutrin XL] 150 mg PO DAILY 09/30/24 12/07/24 History Semaglutide 1mg Compound 1 mg SQ MO 12/07/24 12/07/24 History Allergies Allergy/AdvReac Type Severity Reaction Status Date / Time azithromycin AdvReac Nausea & Verified 12/07/24 19:22 Vomiting & Diarrhea Physical Exam Vitals: Vital Signs Temp Pulse Pulse Resp BP BP Pulse Ox 12/08/24 02:30 99.4 F 12/08/24 00:58 100.9 F H 12/08/24 00:16 100.2 F H 105 H 18 111/73 98 12/07/24 20:35 105 H 12/07/24 20:23 98.6 F 104 H 20 120/79 98 12/07/24 20:14 94 18 114/80 97 12/07/24 18:44 100 18 116/80 98 12/07/24 18:14 98 20 137/80 98 12/07/24 14:55 98.8 F 118 H 20 99/71 98 Intake and Output 12/07/24 12/08/24 12/08/24 22:59 06:59 14:59 Other: # Voids 3 # Emeses 1 Weight 55.792 kg GENERAL DESCRIPTION: Middle-aged female lying in bed, no distress. No tachypnea or accessory muscle of respiration use. HEENT: Shows Pallor , no scleral icterus. Oral mucous membrane is dry. No pharyngeal erythema or thrush NECK: Trachea central, no thyromegaly. LUNGS: Unlabored breathing. Clear to auscultation anteriorly. No wheeze or crac kle. HEART: S1, S2, regular rate and rhythm. No loud murmur ABDOMEN: Soft, left lower quadrant tenderness , EXTREMITIES: No edema of feet. SKIN: No rash, no masses palpable. NEUROLOGICAL: The patient is awake, alert, oriented x3, mood and affect normal. Results CBC & Chem 7: 12/08/24 03:28 12/08/24 03:28 Labs: Abnormal Lab Results - Last 24 Hours (Table) 12/07/24 12/07/24 12/07/24 Range/Units 14:58 14:58 14:58 WBC 12.9 H (3.8-10.6) k/uL RBC 5.52 H (3.80-5.40) m/uL Hct 46.7 H (34.0-46.0) % Neutrophils # 11.6 H (1.3-7.7) k/uL Lymphocytes # 0.5 L (1.0-4.8) k/uL Sodium 136 L (137-145) mmol/L Urine Ketones 1+ H (Negative) Urine Blood Trace H (Negative) Urine Bacteria Rare H (None) /hpf Urine Mucus Rare H (None) /hpf 12/08/24 Range/Units 03:28 WBC (3.8-10.6) k/uL RBC (3.80-5.40) m/uL Hct (34.0-46.0) % Neutrophils # 8.6 H (1.3-7.7) k/uL Lymphocytes # 0.6 L (1.0-4.8) k/uL Sodium (137-145) mmol/L Urine Ketones (Negative) Urine Blood (Negative) Urine Bacteria (None) /hpf Urine Mucus (None) /hpf Assessment and Plan (1) Diverticulitis of intestine with abscess Current Visit: Yes Status: Acute Code(s): K57.80 - DVTRCLI OF INTEST, PART UNSP, W PERF AND ABSCESS W/O BLEED SNOMED Code(s): 957427761 (2) Sepsis Current Visit: No Status: Acute Code(s): A41.9 - SEPSIS, UNSPECIFIED ORGANISM SNOMED Code(s): 98893284 Plan: 1patient presented hospital with sepsis in this patient who did have fever tachycardia elevated white count source is acute complicated diverticulitis with a peridiverticular abscess and will need to call for the enteric gram-negative both aerobes and anaerobes to be the likely pathogen 2-await surgical evaluation for possible surgical versus IR drainage of this abs cess which will be sent for the culture 3-Zosyn 3.375 g every 8 hours should provide adequate antibiotic coverage Question concern answered We will follow on clinical condition and cultures to further adjust medication if needed Thank you for this consultation we will follow the patient along with you Dictation was produced using [employer] dictation software. please excuse any grammatical, word or spelling errors. Time with Patient: Greater than 30
[2024-12-09] MEDS: ONDANSETRON 4 MG/2 ML VIAL IVP PRN (03:12)
[2024-12-09 04:53] LABS: Basophils % (A) 0 %; Eosinophils # (A) 0.1 k/uL (0-0.7); Eosinophils % (A) 1 %; HCT 35.5 % (34.0-46.0); HGB 11.3 gm/dL (11.4-16.0); Lymphocytes # (A) 0.6 k/uL (1.0-4.8); Lymphocytes % (A) 6 %; MCH 27.1 pg (25.0-35.0); MCHC 31.8 g/dL (31.0-37.0); MCV 85.3 fL (80.0-100.0); Mean Platelet Volume 7.4; Monocytes # (A) 0.5 k/uL (0-1.0); Monocytes % (A) 5 %; Neutrophils # (A) 9.3 k/uL (1.3-7.7); Neutrophils % (A) 88 %; Platelet Count 193 k/uL (150-450); RBC 4.16 m/uL (3.80-5.40); RDW 13.9 % (11.5-15.5); WBC 10.5 k/uL (3.8-10.6)
[2024-12-09 05:02] LABS: ALT 33 U/L (4-34); AST 25 U/L (14-36); African American GFR (CKD) >90 (>60 ml/min/1.73 sqM); Albumin/Globulin Ratio 1.4; Alkaline Phosphatase 57 U/L (38-126); Anion Gap 5 mmol/L; Blood Urea Nitrogen 5 mg/dL (7-17); Calcium 8.1 mg/dL (8.4-10.2); Carbon Dioxide 21 mmol/L (22-30); Chloride 106 mmol/L (98-107); Globulin 2.2 g/dL; Glucose 96 mg/dL (74-99); Non-African American GFR(CKD) >90 (>60 ml/min/1.73 sqM); Potassium 3.7 mmol/L (3.5-5.1); Sodium 132 mmol/L (137-145); Total Bilirubin 0.5 mg/dL (0.2-1.3); Total Protein 5.2 g/dL (6.3-8.2)
[2024-12-09 07:22] LABS: RBC 4.12 m/uL (3.80-5.40); WBC 9.1 k/uL (3.8-10.6)
[2024-12-09 07:23] LABS: Basophils % (A) 0 %; Eosinophils # (A) 0.1 k/uL (0-0.7); Eosinophils % (A) 1 %; HCT 35.7 % (34.0-46.0); HGB 11.3 gm/dL (11.4-16.0); Hypochromasia Slight; Lymphocytes # (A) 0.7 k/uL (1.0-4.8); Lymphocytes % (A) 8 %; MCH 27.4 pg (25.0-35.0); MCHC 31.6 g/dL (31.0-37.0); MCV 86.6 fL (80.0-100.0); Mean Platelet Volume 7.1; Monocytes # (A) 0.4 k/uL (0-1.0); Monocytes % (A) 4 %; Neutrophils # (A) 7.9 k/uL (1.3-7.7); Neutrophils % (A) 87 %; Platelet Count 169 k/uL (150-450); RDW 13.5 % (11.5-15.5)
[2024-12-09 07:32] LABS: African American GFR (CKD) >90 (>60 ml/min/1.73 sqM); Anion Gap 6 mmol/L; Blood Urea Nitrogen 5 mg/dL (7-17); Calcium 7.9 mg/dL (8.4-10.2); Carbon Dioxide 23 mmol/L (22-30); Chloride 106 mmol/L (98-107); Glucose 89 mg/dL (74-99); Non-African American GFR(CKD) >90 (>60 ml/min/1.73 sqM); Potassium 3.5 mmol/L (3.5-5.1); Sodium 135 mmol/L (137-145)
--- NOTE | 2024-12-09 12:44 | P.PN ---
Subjective Progress Note Date: 12/09/24 SURGICAL PROGRESS NOTE CHIEF COMPLAINT: Diverticulitis with abscess HISTORY OF PRESENT ILLNESS: Patient continues to have abdominal pain mostly with ambulating. She rates her pain about 8 out of 10. She denies any vomiting. She reports feeling nauseated. She is not able to eat. She is having flatus. Afebrile. WBC is 9.1 PHYSICAL EXAM: VITAL SIGNS: Reviewed. GENERAL: Well-developed in no acute distress. ABDOMEN: Soft. Nondistended. Tender with palpation greater in the left lower quadrant. Patient is tender across the lower abdomen and up the right side of the abdomen NEUROLOGIC: Alert and oriented. Cranial nerves II through XII grossly intact. ASSESSMENT: 1. Acute complicated sigmoid diverticulitis with small abscess 2. Sepsis present on admission due to diverticulitis 3. History of diverticulitis with microperforation and abscess in September 2024 PLAN: -Continue IV antibiotics -Continue supportive care -Continue pain management -Continue antiemetics -Tentatively plan early evaluation by colorectal surgery for laparoscopic sigmoid colectomy short after discharge -DVT prophylaxis subcu heparin Physician Stone Hand note has been reviewed by physician. Signing provider agrees with the documented findings, assessment, and plan of care. I have personally seen and examined the patient, reviewed the SERVICE DESK LEAD /PAs history, exam and MDM and agree with the assessment and plan as written. Based on total visit time, I have performed more than 50% of the visit. As above: Patient having ongoing nausea. Still with lower abdominal discomfort that she says is unchanged. Not worse. Exam is similar to previous. Will repeat abdominal films tomorrow. Continue antibiotics. Continue liquid diet only. Objective - Vital Signs Vital signs: Vital Signs Temp 98.1 F 12/09/24 08:04 Pulse 82 12/09/24 08:04 Resp 16 12/09/24 08:04 BP 100/67 12/09/24 08:04 Pulse Ox 99 12/09/24 08:04 FiO2 Intake & Output 12/08/24 12/09/24 12/09/24 18:59 06:59 18:59 Other: # Voids 5 2 2 - Labs CBC & Chem 7: 12/09/24 06:57 12/09/24 06:57 Labs: Abnormal Lab Results - Last 24 Hours (Table) 12/09/24 12/09/24 12/09/24 Range/Units 04:24 04:24 06:57 Hgb 11.3 L 11.3 L (11.4-16.0) gm/dL Neutrophils # 9.3 H 7.9 H (1.3-7.7) k/uL Lymphocytes # 0.6 L 0.7 L (1.0-4.8) k/uL Sodium 132 L (137-145) mmol/L Carbon Dioxide 21 L (22-30) mmol/L BUN 5 L (7-17) mg/dL Calcium 8.1 L (8.4-10.2) mg/dL Total Protein 5.2 L (6.3-8.2) g/dL Albumin 3.0 L (3.5-5.0) g/dL 12/09/24 Range/Units 06:57 Hgb (11.4-16.0) gm/dL Neutrophils # (1.3-7.7) k/uL Lymphocytes # (1.0-4.8) k/uL Sodium 135 L (137-145) mmol/L Carbon Dioxide (22-30) mmol/L BUN 5 L (7-17) mg/dL Calcium 7.9 L (8.4-10.2) mg/dL Total Protein (6.3-8.2) g/dL Albumin (3.5-5.0) g/dL Microbiology - Last 24 Hours (Table) 12/07/24 18:25 Blood Culture - Preliminary Blood
--- NOTE | 2024-12-09 15:57 | P.PN ---
Subjective Progress Note Date: 12/09/24 Principal diagnosis: Reason for follow-up is perforated diverticulitis and abscess Patient is a 49-year-old female with a past medical history significant for anxiety depression perforated diverticulitis with an abscess requiring IV antibiotic therapy presenting to the hospital for evaluation of abdominal pain, patient be diagnosed with a completely diverticulitis with a peridiverticular abscess. On today's evaluation that is 12/09/2024,the patient denies any fever or any chills, patient is breathing comfortably on room air, the patient denies chest pain shortness of breath and no significant cough, patient still complaining of lower abdominal pain and discomfort nausea but no vomiting. Patient white count is 9.1, creatinine 0.66 Objective - Vital Signs Vital signs: Vital Signs Temp 98.1 F 12/09/24 08:04 Pulse 82 12/09/24 08:04 Resp 16 12/09/24 08:04 BP 100/67 12/09/24 08:04 Pulse Ox 99 12/09/24 08:04 FiO2 Intake & Output 12/08/24 12/09/24 12/09/24 18:59 06:59 18:59 Other: # Voids 5 2 2 - Exam GENERAL DESCRIPTION: Middle-age female lying in bed in no distress RESPIRATORY SYSTEM: Unlabored breathing , decreased breath sounds at bases HEART: S1 S2 regular rate and rhythm , ABDOMEN: Soft , no tenderness EXTREMITIES: No edema feet - Labs CBC & Chem 7: 12/09/24 06:57 12/09/24 06:57 Labs: Abnormal Lab Results - Last 24 Hours (Table) 12/09/24 12/09/24 12/09/24 Range/Units 04:24 04:24 06:57 Hgb 11.3 L 11.3 L (11.4-16.0) gm/dL Neutrophils # 9.3 H 7.9 H (1.3-7.7) k/uL Lymphocytes # 0.6 L 0.7 L (1.0-4.8) k/uL Sodium 132 L (137-145) mmol/L Carbon Dioxide 21 L (22-30) mmol/L BUN 5 L (7-17) mg/dL Calcium 8.1 L (8.4-10.2) mg/dL Total Protein 5.2 L (6.3-8.2) g/dL Albumin 3.0 L (3.5-5.0) g/dL 12/09/24 Range/Units 06:57 Hgb (11.4-16.0) gm/dL Neutrophils # (1.3-7.7) k/uL Lymphocytes # (1.0-4.8) k/uL Sodium 135 L (137-145) mmol/L Carbon Dioxide (22-30) mmol/L BUN 5 L (7-17) mg/dL Calcium 7.9 L (8.4-10.2) mg/dL Total Protein (6.3-8.2) g/dL Albumin (3.5-5.0) g/dL Microbiology - Last 24 Hours (Table) 12/07/24 18:25 Blood Culture - Preliminary Blood Assessment and Plan (1) Diverticulitis of intestine with abscess Current Visit: Yes Status: Acute Code(s): K57.80 - DVTRCLI OF INTEST, PART UNSP, W PERF AND ABSCESS W/O BLEED SNOMED Code(s): 695700514 (2) Sepsis Current Visit: No Status: Acute Code(s): A41.9 - SEPSIS, UNSPECIFIED ORGAN ISM SNOMED Code(s): 22553155 Plan: 1patient presented hospital with sepsis in this patient who did have fever tachycardia elevated white count source is acute complicated diverticulitis with a peridiverticular abscess and will need to call for the enteric gram-negative both aerobes and anaerobes to be the likely pathogen 2-patient has been eval by general surgery recommending continuation with IV antibiotic 3-patient did have a resolution of leukocytosis, will continue Zosyn 3.375 g every 8 hours May need a course of IV antibiotic on discharge Dictation was produced using [employer] dictation software. please excuse any grammatical, word or spelling errors. Time with Patient: Less than 30
[2024-12-09] MEDS: HEPARIN SODIUM,PORCINE 5,000 UNIT/ML 1 ML VIAL SQ SCH (19:51)
--- NOTE | 2024-12-10 02:45 | P.PN ---
Subjective Progress Note Date: 12/09/24 This is a pleasant 49-year-old female who presented to the emergency department with intense abdominal pain with concerns of diverticulitis with concerning increase in abscess formation. Patient follows with Dr. Zarate in the outpatient setting with past medical history of previous diverticulitis with microperforation, anxiety/depression. Patient rarely drinks alcohol and admits to vaping and denies any other illicit drug use. Patient has been seeing Dr. Aquino in the outpatient setting for this diverticulitis and had been on a number of antibiotics outpatient and was scheduled in the outpatient setting for CT as patient was continuing to have complications although her insurance was giving her difficulties and a repeat CAT scan as she was recently hospitalized for the same. In the ER patient underwent repeat CT abdomen pelvis which shows acute complicated sigmoid diverticulitis with perisigmoid gas and fluid collection abutting the left ovary concerning for abscess measuring approximately 3.2 x 2.3 cm. EKG shows sinus rhythm, labs reviewed and initially had a mildly elevated white count of 12.9, hemoglobin stable at 14.6, platelets 274, INR 1.0, sodium 136, potassium 4.3, BUN 13 and creatinine 0.76, magnesium 1.8, ALT/AST mildly elevated although initially normal on yesterday's exam, amylase 46, lipase 130, urinalysis was negative. Patient was admitted with infectious disease and general surgery on consult and was made n.p.o. started on fluid hydration. Patient does continue to have ongoing fevers overnight with Tmax 100.9. 12/09/2024 Patient is seen in follow-up today and continues to report significant abdominal pain especially when ambulating or position changes. Patient is maintained on clear liquid although not eating much and not tolerating much as patient continues to have persistent nausea. General surgery following with no immediate plans of surgical intervention although recommending outpatient antibiotics in near future laparoscopy. Infectious disease following and discussing as patient may benefit from IV antibiotics on discharge. Case manage ment/social work will be consulted to evaluate coverage of IV antibiotics outpatient. Patient is afebrile and white count is normalized. Encouraged increased activity as tolerated. Review of systems: Constitutional: No reports of fatigue, fever, or chills Cardiovascular: No reports of chest pain or palpitations Respiratory: No reports of shortness of breath or cough GI: reports of nausea, no vomiting, denies diarrhea, passing gas : No reports of dysuria or retention Neurovascular: No reports of weakness or numbness All medications have been reviewed PHYSICAL EXAMINATION: GENERAL: The patient is alert and oriented x3, ill-appearing. Well developed, well nourished. HEENT: Pupils are round and equally reacting to light. EOMI. No scleral icterus. No conjunctival pallor. Normocephalic, atraumatic. No pharyngeal erythema. No thyromegaly. CARDIOVASCULAR: S1 and S2 present. No murmurs, rubs, or gallops. PULMONARY: Chest is clear to auscultation, no wheezing or crackles. ABDOMEN: Soft, mildly tender on palpation, nondistended, normoactive bowel sounds. No palpable organomegaly. MUSCULOSKELETAL: No joint swelling or deformity. EXTREMITIES: No cyanosis, clubbing, or pedal edema. NEUROLOGICAL: Gross neurological examination did not reveal any focal deficits. SKIN: No rashes. Assessment: Abdominal pain with acute complicated sigmoid diverticulitis with perisigmoid gas and fluid collection abutting the left ovary concerning for abscess formation measuring approximately 3.2 x 2.3 cm Sepsis, present on admission secondary to diverticulitis History of recent diverticulitis with microperforation in September 2024 History of cholecystectomy Vaping Anxiety/depression GI prophylaxis DVT prophylaxis Full code Plan: Patient was admitted with general surgery on consult. Patient follows with Dr. Aquino in the outpatient setting with a recent history of diverticulitis with microperforation in September. Patient had been following outpatient having increasing pain noted to have nausea with diarrhea and vomiting and came here for further evaluation. Patient was tachy, febrile, and elevated white count with concerns of sepsis likely secondary to diverticulitis with concerns of abscess formation. No immediate plans for surgical intervention at this time recommending, continue mild bowel rest with only clear liquids and continued IV antibiotic therapy with hydration. Will need to discuss further with infectious disease and case management regarding discharge planning and possible need for IV antibiotic therapy outpatient Follow-up on repeat labs and replace electrolytes per protocol Monitor for fevers and treat with Tylenol and/or Motrin Encourage increase activity as tolerated The impression and plan of care has been dictated by Grace Chapman, Nurse Practitioner as directed. Dr. Concepcion MD I have performed a history and examination and MDM of this patient, discussed the same with the dictator, and agree with the dictator's assessment and plan as written ,documented as a scribe. Based on total visit time, I have performed more than 50% of the visit. Objective - Vital Signs Vital signs: Vital Signs Temp 98.1 F 12/09/24 08:04 Pulse 82 12/09/24 08:04 Resp 16 12/09/24 08:04 BP 100/67 12/09/24 08:04 Pulse Ox 99 12/09/24 08:04 FiO2 Intake & Output 12/08/24 12/09/24 12/09/24 18:59 06:59 18:59 Other: # Voids 5 2 - Labs CBC & Chem 7: 12/09/24 06:57 12/09/24 06:57 Labs: Abnormal Lab Results - Last 24 Hours (Table) 12/09/24 12/09/24 12/09/24 Range/Units 04:24 04:24 06:57 Hgb 11.3 L 11.3 L (11.4-16.0) gm/dL Neutrophils # 9.3 H 7.9 H (1.3-7.7) k/uL Lymphocytes # 0.6 L 0.7 L (1.0-4.8) k/uL Sodium 132 L (137-145) mmol/L Carbon Dioxide 21 L (22-30) mmol/L BUN 5 L (7-17) mg/dL Calcium 8.1 L (8.4-10.2) mg/dL Total Protein 5.2 L (6.3-8.2) g/dL Albumin 3.0 L (3.5-5.0) g/dL 12/09/24 Range/Units 06:57 Hgb (11.4-16.0) gm/dL Neutrophils # (1.3-7.7) k/uL Lymphocytes # (1.0-4.8) k/uL Sodium 135 L (137-145) mmol/L Carbon Dioxide (22-30) mmol/L BUN 5 L (7-17) mg/dL Calcium 7.9 L (8.4-10.2) mg/dL Total Protein (6.3-8.2) g/dL Albumin (3.5-5.0) g/dL Microbiology - Last 24 Hours (Table) 12/07/24 18:25 Blood Culture - Preliminary Blood
[2024-12-10 05:10] LABS: Basophils % (A) 0 %; Eosinophils # (A) 0.2 k/uL (0-0.7); Eosinophils % (A) 3 %; HCT 34.2 % (34.0-46.0); Lymphocytes # (A) 1.1 k/uL (1.0-4.8); Lymphocytes % (A) 17 %; MCH 27.6 pg (25.0-35.0); MCHC 32.1 g/dL (31.0-37.0); MCV 85.8 fL (80.0-100.0); Monocytes # (A) 0.5 k/uL (0-1.0); Monocytes % (A) 8 %; Neutrophils # (A) 4.4 k/uL (1.3-7.7); Neutrophils % (A) 71 %; Platelet Count 151 k/uL (150-450); RBC 3.99 m/uL (3.80-5.40); RDW 13.9 % (11.5-15.5); WBC 6.3 k/uL (3.8-10.6)
--- NOTE | 2024-12-10 08:34 | XR ---
EXAMINATION TYPE: XR abdomen 2V DATE OF EXAM: 12/10/2024 7:01 AM COMPARISON: 12/07/2024 CLINICAL INDICATION: Female, 49 years old with history of Diverticulitis, TECHNIQUE: XR abdomen 2V view(s) obtained. FINDINGS: There is a normal colonic bowel gas pattern. Nonspecific small bowel gas is within the mid abdomen. N o free air is evident. Psoas margins are normal. No organomegaly is present. No suspicious calcifications. IMPRESSION: 1. Nonspecific bowel gas. [facility], , 12/10/2024 8:32 AM
--- NOTE | 2024-12-10 12:34 | P.PN ---
Subjective Progress Note Date: 12/10/24 SURGICAL PROGRESS NOTE CHIEF COMPLAINT: Diverticulitis with abscess HISTORY OF PRESENT ILLNESS: patient is feeling better. Pain has decreased. Nausea resolved. No vomiting. Having flatus. Afebrile. WBC 6.3 PHYSICAL EXAM: VITAL SIGNS: Reviewed. GENERAL: Well-developed in no acute distress. ABDOMEN: Soft. Nondistended. tender with palpation left lower quadrant and across the lower abdomen. Overall abdomen is less tender on exam NEUROLOGIC: Alert and oriented. Cranial nerves II through XII grossly intact. ASSESSMENT: 1. Acute complicated sigmoid diverticulitis with small abscess 2. Sepsis present on admission due to diverticulitis 3. History of diverticulitis with microperforation and abscess in September 2024 PLAN: -Advance diet to full liquids -Discharge antibiotics per ID service. Patient getting midline for IV antibiotics -Tentatively plan early evaluation by colorectal surgery for laparoscopic sigmoid colectomy after discharge -DVT prophylaxis subcu heparin Physician Manager Beverage note has been reviewed by physician. Signing provider agrees with the documented findings, assessment, and plan of care. I have personally seen and examined the patient, reviewed the NETWORK PRICING CONSULTANT /PAs history, exam and MDM and agree with the assessment and plan as written. Based on total visit time, I have performed more than 50% of the visit. As above: Patient doing better today. No further nausea. No vomiting. Pain is improved. Patient states she would like to go home at this time on IV antibiotics. These were already being arranged. Discussed case with Dr. Juan Carlos Chowdary who will make arrangements for outpatient follow-up. Objective - Vital Signs Vital signs: Vital Signs Temp 98.3 F 12/10/24 07:05 Pulse 79 12/10/24 10:30 Resp 16 12/10/24 10:30 BP 101/70 12/10/24 07:05 Pulse Ox 98 12/10/24 07:05 FiO2 Intake & Output 12/09/24 12/10/24 12/10/24 18:59 06:59 18:59 Other: # Voids 2 3 - Labs CBC & Chem 7: 12/10/24 04:44 12/09/24 06:57 Labs: Abnormal Lab Results - Last 24 Hours (Table) 12/10/24 Range/Units 04:44 Hgb 11.0 L (11.4-16.0) gm/dL Microbiology - Last 24 Hours (Table) 12/07/24 18:25 Blood Culture - Preliminary Blood
--- NOTE | 2024-12-11 04:58 | P.PN ---
Subjective Progress Note Date: 12/10/24 This is a pleasant 49-year-old female who presented to the emergency department with intense abdominal pain with concerns of diverticulitis with concerning increase in abscess formation. Patient follows with Dr. Zarate in the outpatient setting with past medical history of previous diverticulitis with microperforation, anxiety/depression. Patient rarely drinks alcohol and admits to vaping and denies any other illicit drug use. Patient has been seeing Dr. Aquino in the outpatient setting for this diverticulitis and had been on a number of antibiotics outpatient and was scheduled in the outpatient setting for CT as patient was continuing to have complications although her insurance was giving her difficulties and a repeat CAT scan as she was recently hospitalized for the same. In the ER patient underwent repeat CT abdomen pelvis which shows acute complicated sigmoid diverticulitis with perisigmoid gas and fluid collection abutting the left ovary concerning for abscess measuring approximately 3.2 x 2.3 cm. EKG shows sinus rhythm, labs reviewed and initially had a mildly elevated white count of 12.9, hemoglobin stable at 14.6, platelets 274, INR 1.0, sodium 136, potassium 4.3, BUN 13 and creatinine 0.76, magnesium 1.8, ALT/AST mildly elevated although initially normal on yesterday's exam, amylase 46, lipase 130, urinalysis was negative. Patient was admitted with infectious disease and general surgery on consult and was made n.p.o. started on fluid hydration. Patient does continue to have ongoing fevers overnight with Tmax 100.9. 12/09/2024 Patient is seen in follow-up today and continues to report significant abdominal pain especially when ambulating or position changes. Patient is maintained on clear liquid although not eating much and not tolerating much as patient continues to have persistent nausea. General surgery following with no immediate plans of surgical intervention although recommending outpatient antibiotics in near future laparoscopy. Infectious disease following and discussing as patient may benefit from IV antibiotics on discharge. Case manage ment/social work will be consulted to evaluate coverage of IV antibiotics outpatient. Patient is afebrile and white count is normalized. Encouraged increased activity as tolerated. 12/10/2024 Patient is seen in follow-up this morning reports her pain is improving and less intense and able to get up and walk more frequently. Patient tolerating clear liquids requesting and advance in diet and will discuss with surgery about slowly advancing possibly to full liquids. Encourage patient to continue with full liquid while at home for the next few days as well. Infectious disease following and will likely receive IV antibiotics outpatient. Case management has been consulted to arrange for discharge antibiotic therapy. Review of systems: Constitutional: No reports of fatigue, fever, or chills Cardiovascular: No reports of chest pain or palpitations Respiratory: No reports of shortness of breath or cough GI: reports of nausea although improved, no vomiting, denies diarrhea, passing gas : No reports of dysuria or retention Neurovascular: No reports of weakness or numbness All medications have been reviewed PHYSICAL EXAMINATION: GENERAL: The patient is alert and oriented x3, ill-appearing. Well developed, well nourished. HEENT: Pupils are round and equally reacting to light. EOMI. No scleral icterus. No conjunctival pallor. Normocephalic, atraumatic. No pharyngeal erythema. No thyromegaly. CARDIOVASCULAR: S1 and S2 present. No murmurs, rubs, or gallops. PULMONARY: Chest is clear to auscultation, no wheezing or crackles. ABDOMEN: Soft, mildly tender on palpation, nondistended, normoactive bowel sounds. No palpable organomegaly. MUSCULOSKELETAL: No joint swelling or deformity. EXTREMITIES: No cyanosis, clubbing, or pedal edema. NEUROLOGICAL: Gross neurological examination did not reveal any focal deficits. SKIN: No rashes. Assessment: Abdominal pain with acute complicated sigmoid diverticulitis with perisigmoid gas and fluid collection abutting the left ovary concerning for abscess formation measuring approximately 3.2 x 2.3 cm Sepsis, present on admission secondary to diverticulitis History of recent diverticulitis with microperforation in September 2024 History of cholecystectomy Vaping Anxiety/depression GI prophylaxis DVT prophylaxis Full code Plan: Patient was admitted with general surgery on consult. Patient follows with Dr. Aquino in the outpatient setting with a recent history of diverticulitis with microperforation in September. Patient had been following outpatient having increasing pain noted to have nausea with diarrhea and vomiting and came here for further evaluation. Patient was tachy, febrile, and elevated white count with concerns of sepsis likely secondary to diverticulitis with concerns of abscess formation. No immediate plans for surgical intervention at this time although will be following up outpatient for surgical intervention. Patient is continued on clear liquids and will slowly advance to full liquids. Discussed with the patient about continuing on full liquids the next few days Patient will need 2 weeks of IV antibiotic therapy in the form of Zosyn with case management now following arranging for discharge planning and home care in the outpatient setting. Midline ordered and scheduled to receive today. Follow-up on repeat labs and replace electrolytes per protocol Monitor for fevers and treat with Tylenol and/or Motrin. No further fevers noted and white count has normalized Encourage increase activity as tolerated Possible discharge planning in 24 hours once antibiotics are arranged and home care has been confirmed The impression and plan of care has been dictated by Grace Chapman, Nurse Practitioner as directed. Dr. Concepcion MD I have performed a history and examination and MDM of this patient, discussed the same with the dictator, and agree with the dictator's assessment and plan as written ,documented as a scribe. Based on total visit time, I have performed more than 50% of the visit. Objective - Vital Signs Vital signs: Vital Signs Temp 98.9 F 12/11/24 00:42 Pulse 75 12/11/24 00:42 Resp 16 12/11/24 00:42 BP 121/79 12/11/24 00:42 Pulse Ox 100 12/11/24 00:42 FiO2 Intake & Output 12/10/24 12/10/24 12/11/24 06:59 18:59 06:59 Other: Voiding Method Toilet # Voids 3 3 3 - Labs CBC & Chem 7: 12/10/24 04:44 12/09/24 06:57 Labs: Abnormal Lab Results - Last 24 Hours (Table) 12/10/24 Range/Units 04:44 Hgb 11.0 L (11.4-16.0) gm/dL Microbiology - Last 24 Hours (Table) 12/07/24 18:25 Blood Culture - Preliminary Blood
[2024-12-11 10:27] LABS: Magnesium 1.9 mg/dL (1.5-2.4)
[2024-12-11 10:51] LABS: BUN/Creat Ratio <7.00 Ratio (12.00-20.00); Blood Urea Nitrogen <3.5 mg/dL (9.0-27.0); Calcium 8.5 mg/dL (8.7-10.3); Carbon Dioxide 24.3 mmol/L (21.6-31.8); Chloride 105 mmol/L (96-109); Glucose 87 mg/dL (70-110); Potassium 3.7 mmol/L (3.5-5.5); Sodium 140 mmol/L (135-145)
--- NOTE | 2024-12-11 12:00 | P.PN ---
Subjective Progress Note Date: 12/11/24 SURGICAL PROGRESS NOTE CHIEF COMPLAINT: Diverticulitis with abscess HISTORY OF PRESENT ILLNESS: Patient has left lower quadrant abdominal pain. She reports the pain is less each day. She does complain of a headache. Denies any nausea or vomiting. She was able to tolerate the full liquids. Afebrile. WBC 6.3. Patient did receive her midline and IV antibiotics arranged outpatient. PHYSICAL EXAM: VITAL SIGNS: Reviewed. GENERAL: Well-developed in no acute distress. ABDOMEN: Soft. Nondistended. tender with palpation left lower quadrant and across the lower abdomen. Overall abdomen is less tender on exam NEUROLOGIC: Alert and oriented. Cranial nerves II through XII grossly intact. ASSESSMENT: 1. Acute complicated sigmoid diverticulitis with small abscess 2. Sepsis present on admission due to diverticulitis 3. History of diverticulitis with microperforation and abscess in September 2024 PLAN: -Okay for discharge from surgical standpoint -Continue full liquid diet and advance slowly to a low fiber diet -IV antibiotics per infectious disease -Patient to follow-up with Dr. Muse, colorectal surgeon outpatient Physician Plate Mounter note has been reviewed by physician. Signing provider agrees with the documented findings, assessment, and plan of care. I have personally seen and examined the patient, reviewed the MANAGER COMMERCIAL REAL E[employer] /PAs history, exam and MDM and agree with the assessment and plan as written. Based on total visit time, I have performed more than 50% of the visit. As above: Patient still having mild discomfort although improved. Tolerating diet. Patient is anxious to go home today. Agree with plans for discharge. Follow-up with colorectal surgery as outpatient. Objective - Vital Signs Vital signs: Vital Signs Temp 98.8 F 12/11/24 07:28 Pulse 83 12/11/24 07:28 Resp 20 12/11/24 07:28 BP 111/76 12/11/24 07:28 Pulse Ox 98 12/11/24 07:28 FiO2 Intake & Output 12/10/24 12/11/24 12/11/24 18:59 06:59 18:59 Other: Voiding Method Toilet # Voids 3 1 - Labs CBC & Chem 7: 12/10/24 04:44 12/11/24 06:16 Labs: Abnormal Lab Results - Last 24 Hours (Table) 12/11/24 Range/Units 06:16 BUN <3.5 L (9.0-27.0) mg/dL Creatinine 0.5 L (0.6-1.5) mg/dL BUN/Creatinine Ratio <7.00 L (12.00-20.00) Ratio Calcium 8.5 L (8.7-10.3) mg/dL Microbiology - Last 24 Hours (Table) 12/07/24 18:25 Blood Culture - Preliminary Blood
--- NOTE | 2024-12-11 13:21 | P.PN ---
Subjective Progress Note Date: 12/10/24 Principal diagnosis: Reason for follow-up is perforated diverticulitis and abscess Patient is a 49-year-old female with a past medical history significant for anxiety depression perforated diverticulitis with an abscess requiring IV antibiotic therapy presenting to the hospital for evaluation of abdominal pain, patient be diagnosed with a completely diverticulitis with a peridiverticular abscess. On today's evaluation that is 12/10/2024,the patient remains to be afebrile, patient is on room air not requiring supplemental oxygen and denies any shortness of breath no chest pain or cough.Patient denies having any nausea or vomiting, mention improvement in the abdominal pain no bowel movement. Patient white count is 6.3 no BMP was done today blood culture has been negative Objective - Vital Signs Vital signs: Vital Signs Temp 98.3 F 12/10/24 07:05 Pulse 79 12/10/24 10:30 Resp 16 12/10/24 10:30 BP 101/70 12/10/24 07:05 Pulse Ox 98 12/10/24 07:05 FiO2 Intake & Output 12/09/24 12/10/24 12/10/24 18:59 06:59 18:59 Other: # Voids 2 3 - Exam GENERAL DESCRIPTION: Middle-age female lying in bed in no distress RESPIRATORY SYSTEM: Unlabored breathing , decreased breath sounds at bases HEART: S1 S2 regular rate and rhythm , ABDOMEN: Soft , no tenderness EXTREMITIES: No edema feet - Labs CBC & Chem 7: 12/10/24 04:44 12/11/24 06:16 Labs: Abnormal Lab Results - Last 24 Hours (Table) 12/10/24 Range/Units 04:44 Hgb 11.0 L (11.4-16.0) gm/dL Microbiology - Last 24 Hours (Table) 12/07/24 18:25 Blood Culture - Preliminary Blood Assessment and Plan (1) Diverticulitis of intestine with abscess Current Visit: Yes Status: Acute Code(s): K57.80 - DVTRCLI OF INTEST, PART UNSP, W PERF AND ABSCESS W/O BLEED SNOMED Code(s): 530415150 (2) Sepsis Current Visit: No Status: Acute Code(s): A41.9 - SEPSIS, UNSPECIFIED ORGANISM SNOMED Code(s): 12076391 Plan: 1patient presented hospital with sepsis in this patient who did have fever tachycardia elevated white count source is acute complicated diverticulitis with a peridiverticular abscess and will need to call for the enteric gram-negative both aerobes and anaerobes to be the likely pathogen 2-patient has been eval by general surgery recommending continuation with IV antibiotic and the patient mentions some improvement in her symptoms and white count normalized currently on Zosyn plans for outpatient antibiotics on discharge shoe caser is working on it Dictation was produced using [employer] software. please excuse any grammatical, word or spelling errors. Time with Patient: Less than 30
--- NOTE | 2024-12-11 13:22 | P.PN ---
Subjective Progress Note Date: 12/11/24 Principal diagnosis: Reason for follow-up is perforated diverticulitis and abscess Patient is a 49-year-old female with a past medical history significant for anxiety depression perforated diverticulitis with an abscess requiring IV antibiotic therapy presenting to the hospital for evaluation of abdominal pain, patient be diagnosed with a completely diverticulitis with a peridiverticular abscess. On today's evaluation that is 12/11/2024, the patient continues to be afebrile, the patient is on room air and breathing comfortably, the Pt denies having any chest pain or cough, the patient has been complaining of more abdominal pain today mention has been seen by surgeon and they are okay with her going home today on IV antibiotics and the patient seem to be okay with that no chest pain shortness of breath or cough. Patient did have a creatinine 0.5 no CBC was done today, blood culture so far pending Objective - Vital Signs Vital signs: Vital Signs Temp 98.8 F 12/11/24 07:28 Pulse 83 12/11/24 07:28 Resp 20 12/11/24 07:28 BP 111/76 12/11/24 07:28 Pulse Ox 98 12/11/24 07:28 FiO2 Intake & Output 12/10/24 12/11/24 12/11/24 18:59 06:59 18:59 Other: Voiding Method Toilet # Voids 3 1 - Exam GENERAL DESCRIPTION: Middle-age female lying in bed in no distress RESPIRATORY SYSTEM: Unlabored breathing , decreased breath sounds at bases HEART: S1 S2 regular rate and rhythm , ABDOMEN: Soft , mild tenderness EXTREMITIES: No edema feet - Labs CBC & Chem 7: 12/10/24 04:44 12/11/24 06:16 Labs: Abnormal Lab Results - Last 24 Hours (Table) 12/11/24 Range/Units 06:16 BUN <3.5 L (9.0-27.0) mg/dL Creatinine 0.5 L (0.6-1.5) mg/dL BUN/Creatinine Ratio <7.00 L (12.00-20.00) Ratio Calcium 8.5 L (8.7-10.3) mg/dL Microbiology - Last 24 Hours (Table) 12/07/24 18:25 Blood Culture - Preliminary Blood Assessment and Plan (1) Diverticulitis of intestine with abscess Current Visit: Yes Status: Acute Code(s): K57.80 - DVTRCLI OF INTEST, PART UNSP, W PERF AND ABSCESS W/O BLEED SNOMED Code(s): 363785902 (2) Sepsis Current Visit: No Status: Acute Code(s): A41.9 - SEPSIS, UNSPECIFIED ORGANISM SNOMED Code(s): 13666019 Plan: 1patient presented hospital with sepsis in this patient who did have fever tachycardia elevated white count source is acute complicated diverticulitis with a peridiverticular abscess and will need to call for the enteric gram-negative both aerobes and anaerobes to be the likely pathogen 2-patient is afebrile white count has normalized has been cleared for discharge by surgery quality rn working for outpatient IV antibiotic arrangement we will have to make sure she get a repeat/follow-up CT on 12/22/2024 before completion of her antibiotics to make sure resolution of the abscess before discontinuation of antibiotics this has been discussed in detail with the nurse taking care of the patient Dictation was produced using [email or web address] dictation software. please excuse any grammatical, word or spelling errors.
[2024-12-11 14:40] VITALS: BP 106/71; PULSE 95; RESP 18; TEMP 98.5
== END 2024-12-11 15:25 | disposition home health service (06) | DRG 872 ==
LOC: EC 14:53 → 4SSUR 18:17
PROVIDERS: ADMIT Hospitalist; ATTEND Hospitalist
PROC: 02HV33Z Insertion of Infusion Device into Superior Vena Cava, Percutaneous Approach (ICD-10-PCS; principal; 2024-12-10 22:00)
DX: A41.9 Sepsis, unspecified organism (principal); K57.20 Diverticulitis of large intestine with perforation and abscess without bleeding; F32.A Depression, unspecified; F17.290 Nicotine dependence, other tobacco product, uncomplicated; F41.9 Anxiety disorder, unspecified; K59.00 Constipation, unspecified; R19.7 Diarrhea, unspecified; Z90.49 Acquired absence of other specified parts of digestive tract; Z79.899 Other long term (current) drug therapy
CPT/HCPCS: 36410; 36415; 74018; 74019; 74177; 76937; 80048; 80053; 81001; 82150; 83605; 83690; 83735; 85025; 85610; 85730; 87040; 93005; 96361; 96374; 96375; 99285

== ENCOUNTER 2024-12-15 13:17 | Emergency (ER) | payer OTHER ==
--- NOTE | 2024-12-15 13:53 | ED ---
General Adult HPI - General Source: patient Mode of arrival: ambulatory Limitations: no limitations <Elio Krishnan - Last Filed: 12/15/24 16:19> <Johnie Castaneda - Last Filed: 12/15/24 23:25> - General Chief complaint: Recheck/Abnormal Lab/Rx Stated complaint: midline was pulled Time Seen by Provider: 12/15/24 15:02 - History of Present Illness Initial comments: Patient is a 89-year-old female with past medical history of diverticulitis, adenoidectomy, cholecystectomy, tonsillectomy presenting to the emergency depar tment after midline was accidentally pulled out by home care nurse. Patient had been getting piperacillin for underlying perforation secondary to diverticulitis. Patient was asked to come to the ED for evaluation and midline placement. Patient denies other complaints at this time. She denies any new onset fever, chills, nausea, vomiting, belly pain, diarrhea, constipation, chest pain, shortness of breath. (Elio Krishnan) - Related Data Home Medications Medication Instructions Recorded Confirmed Dextroamphetamine/Amphetamine 20 mg PO DAILY 09/30/24 12/07/24 [Adderall] buPROPion XL [Wellbutrin XL] 150 mg PO DAILY 09/30/24 12/07/24 Semaglutide 1mg Compound 1 mg SQ MO 12/07/24 12/07/24 Previous Rx's Medication Instructions Recorded Acetaminophen Tab [Tylenol] 650 mg PO Q6HR PRN tab 12/11/24 Ondansetron Odt [Zofran Odt] 4 mg PO Q8HR PRN #30 tab 12/11/24 Piperacillin-Tazobactam [Zosyn] 3.375 gm IVPB Q8H 14 Days #42 each 12/11/24 traMADol HCl [Ultram] 50 mg PO Q8H PRN 3 Days #12 tab 12/11/24 Allergies Allergy/AdvReac Type Severity Reaction Status Date / Time azithromycin AdvReac Nausea & Verified 12/07/24 19:22 Vomiting & Diarrhea Review of Systems ROS Other: All systems not noted in ROS Statement are negative. Constitutional: Denies: fever, chills Respiratory: Denies: cough, dyspnea Cardiovascular: Denies: chest pain, palpitations Gastrointestinal: Denies: abdominal pain, nausea, vomiting Genitourinary: Denies: urgency, dysuria Skin: Denies: rash <Elio Krishnan - Last Filed: 12/15/24 16:19> ROS Other: All systems not noted in ROS Statement are negative. <Johnie Castaneda - Last Filed: 12/15/24 23:25> ROS Statement: Those systems with pertinent positive or pertinent negative responses have been documented in the HPI. Past Medical History Past Medical History: No Reported History Additional Past Medical History / Comment(s): diverticulitis History of Any Multi-Drug Resistant Organisms: None Reported Past Surgical History: Adenoidectomy, Cholecystectomy, Tonsillectomy Past Anesthesia/Blood Transfusion Reactions: No Reported Reaction Past Psychological History: Anxiety, Depression Smoking Status: Vaper Past Alcohol Use History: Rare Past Drug Use History: None Reported <Elio Krishnan - Last Filed: 12/15/24 16:19> General Exam Limitations: no limitations <AriellaElio - Last Filed: 12/15/24 16:19> - General Exam Comments Initial Comments: GENERAL: This is a 49-year-old in no apparent distress at the time of examination. Pleasant and cooperative. HEENT: Head is atraumatic, normocephalic. RESPIRATORY: Clear to auscultation bilaterally. No wheezing, rales, rhonchi, stridor, crackles. CARDIOVASCULAR: Regular rate and rhythm. No systolic or diastolic murmur. GASTROINTESTINAL: No abdominal distention. Abdomen soft and nontender to palpation. INTEGUMENTARY: No cyanosis. No jaundice. No cellulitis. EXTREMITIES: 2+ peripheral pulses. No evidence of peripheral edema. NEUROLOGIC: Cranial nerves II-XII intact. PSYCHIATRIC: Awake, alert, and oriented X 3. Appropriate affect. Intact judgement and insight. (Elio Krishnan) Course Vital Signs 12/15/24 12/15/24 13:45 16:17 Temperature 97.3 F L 97.7 F Pulse Rate 92 93 Respiratory 20 16 Rate Blood Pressure 121/80 115/75 O2 Sat by Pulse 99 100 Oximetry Medical Decision Making <Elio Krishnan - Last Filed: 12/15/24 16:19> <Johnie Castaneda - Last Filed: 12/15/24 23:25> - Medical Decision Making Was pt. sent in by a medical professional or institution (, PA, BUSINESS APPLICATIONS DEVELOPER, urgent care, hospital, or usp...) When possible be specific @ -No Did you speak to anyone other than the patient for history (EMS, parent, family, police, friend...)? What history was obtained from this source @ -No Did you review nursing and triage notes (agree or disagree)? Why? @ -Reviewed and agree with nursing and triage notes. Were old charts reviewed (outside hosp., previous admission, EMS record, old EKG, old radiological studies, urgent care reports/EKG's, usp records)? Report findings @ -No old charts reviewed Differential Diagnosis? @ -Midline malfunction EKG interpreted by me (3pts min.). @ -No EKG X-rays interpreted by me (1pt min.). @ -No chest x-ray CT interpreted by me (1pt min.). @ -No CT U/S interpreted by me (1pt. min.). @ -No ultrasound What testing was considered but not performed or refused? (CT, X-rays, U/S, labs)? Why? @ -No other testing performed. What meds were considered but not given or refused? Why? @ -None Did you discuss the management of the patient with other professionals (professionals i.e. , PA, BUSINESS APPLICATIONS DEVELOPER, lab, RT, psych nurse, mental health social worker, revenue stamp cutter, teacher, banking services officer, rehabilitation caseworker)? Give summary @ -Discussed with Dr. Castaneda Was smoking cessation discussed for >3mins.? @ -No Was critical care preformed (if so, how long)? @ -No Were there social determinants of health that impacted care today? How? (Homelessness, low income, unemployed, alcoholism, drug addiction, transportation, low edu. Level, literacy, decrease access to med. care, retirement, rehab)? @ -No Was there de-escalation of care discussed even if they declined (Discuss DNR or withdrawal of care, Hospice)? DNR status @ -No What co-morbidities impacted this encounter? (DM, HTN, Smoking, COPD, CAD, Cancer, CVA, ARF, Chemo, Hep., AIDS, mental health diagnosis, sleep apnea, morbid obesity)? @ -Diverticulitis Was patient admitted / discharged? Hospital course, mention meds given and route, prescriptions, significant lab abnormalities, going to OR and other pertinent info. @ -Patient will be discharged after midline placement by [employer]. Undiagnosed new problem with uncertain prognosis? @ -No Drug Therapy requiring intensive monitoring for toxicity (Heparin, Nitro, Insulin, Cardizem)? @ -No Were any procedures done? @ -Midline placement Diagnosis/symptom? @ -Midline malfunction Acute, or Chronic, or Acute on Chronic? @ -Acute Uncomplicated (without systemic symptoms) or Complicated (systemic symptoms)? @ -Uncomplicated Side effects of treatment? @ -No side effects Exacerbation, Progression, or Severe Exacerbation? @ -No exacerbation Poses a threat to life or bodily function? How? (Chest pain, [place], IA, pneumonia, PE, COPD, DKA, ARF, appy, cholecystitis, CVA, Diverticulitis, Homicidal, Suicidal, threat to staff... and all critical care pts) @ -No (Elio Krishnan) I personally saw the patient and performed the critical portion of the service. I discussed the patient care with the resident. I directed management, care planning and final disposition of the patient. This includes, but not limited to, review of all lab work, radiological studies, EKG's, consultations, vital signs, and nursing notes. EKG interpreted by me (3pts min.) @None done X-Rays interpreted by me (1 pt min.) @None CT interpreted by me ( 1pt min.) @None U/S interpreted by me (1 pt min.) @None (Johnie Castaneda) Disposition Is patient prescribed a controlled substance at d/c from ED?: No Time of Disposition: 04:00 <Elio Krishnan - Last Filed: 12/15/24 16:19> Time of Disposition: 16:00 <Johnie Castaneda - Last Filed: 12/15/24 23:25> Clinical Impression: Central line complication Narrative: Patient will be discharged home after midline placement by Jig Grinder. (Elio Krishnan) Disposition: HOME SELF-CARE Condition: Good Referrals: Kristina Garner DO [Primary Care Provider] - 1-2 days
[2024-12-15 16:18] VITALS: BP 115/75; PULSE 93; RESP 16; TEMP 97.7
== END 2024-12-15 16:18 | disposition home or self-care (01) ==
LOC: EC 13:17
DX: T82.898A Other specified complication of vascular prosthetic devices, implants and grafts, initial encounter (principal); F17.290 Nicotine dependence, other tobacco product, uncomplicated
CPT/HCPCS: 36410; 36569; 76937; 99283

== ENCOUNTER 2025-04-27 11:27 | Day surgery (SDC) | payer OTHER ==
[2025-04-26 13:52] VITALS: BMI 26.9
[2025-04-27 11:52] VITALS: TEMP 97.7
[2025-04-27] MEDS: IV FLUID CONTINUATION 1,000 ML IV ONE (12:05)
[2025-04-27] MEDS: LACTATED RINGERS 1,000 ML IV SCH (12:05)
[2025-04-27 12:07] LABS: Glucose,Whole Blood 72 mg/dL (70-110)
[2025-04-27] MEDS ORDERED: PROPOFOL 10 MG/ML 20 ML VIAL IV ONE (12:08)
--- NOTE | 2025-04-27 12:11 | P.GSHP ---
History of Present Illness H&P Date: 04/27/25 Chief Complaint: Diverticulitis 50-year-old female here for colonoscopy. Patient had recurrent diverticulitis with abscess requiring sigmoid resection. This was performed earlier this year. Doing well since then. Never had a complete colonoscopy. Family history of colon cancer in an aunt and an uncle. Bowel function has been good since surgery. Past Medical History Past Medical History: Hyperlipidemia Additional Past Medical History / Comment(s): diverticulitis History of Any Multi-Drug Resistant Organisms: None Reported Past Surgical History: Adenoidectomy, Bowel Resection, Cholecystectomy, Tonsillectomy Additional Past Surgical History / Comment(s): sigmoid colectomy-12/31/24 Past Anesthesia/Blood Transfusion Reactions: Motion Sickness Smoking Status: Vaper - Past Family History Mother Family Medical History: No Reported History Medications and Allergies Home Medications Medication Instructions Recorded Confirmed Type Dextroamphetamine/Amphetamine 20 mg PO DAILY 09/30/24 04/27/25 History [Adderall] buPROPion XL [Wellbutrin XL] 150 mg PO DAILY 09/30/24 04/27/25 History Semaglutide 1mg Compound 0.5 mg SQ MO 12/07/24 04/27/25 History Ondansetron Odt [Zofran Odt] 4 mg PO Q8HR PRN #30 tab 12/11/24 04/27/25 Rx Atorvastatin [Lipitor] 10 mg PO HS 04/26/25 04/27/25 History Allergies Allergy/AdvReac Type Severity Reaction Status Date / Time azithromycin AdvReac Nausea & Verified 04/27/25 11:52 Vomiting & Diarrhea Surgical - Exam Vital Signs Temp Pulse Resp BP Pulse Ox 97.7 F 94 16 114/83 98 04/27/25 11:49 04/27/25 11:49 04/27/25 11:49 04/27/25 11:49 04/27/25 11:49 Physical exam: General: Well-developed, well-nourished HEENT: Normocephalic, sclerae nonicteric Abdomen: Nontender, nondistended Extremities: No edema Neuro: Alert and oriented Assessment and Plan (1) Diverticulitis Narrative/Plan: Will proceed with colonoscopy at this time. Current Visit: No Status: Acute Code(s): K57.92 - DVTRCLI OF INTEST, PART UNSP, W/O PERF OR ABSCESS W/O BLEED SNOMED Code(s): 324163901
--- NOTE | 2025-04-27 12:20 | P.PCN ---
Date of Procedure: 04/27/25 Procedure(s) Performed: PREOPERATIVE DIAGNOSIS: Diverticulitis POSTOPERATIVE DIAGNOSIS: Normal exam status post sigmoid resection PROCEDURE: Colonoscopy ANESTHESIA: MAC SURGEON: Luciano Aquino M.D. SPECIMENS: None ENDOSCOPIC PROCEDURE: The patient was placed on the endoscopy table in the left decubitus position. The Olympus colonoscope was inserted into the anus and passed under direct visualization to the base of the cecum. The appendiceal orifice was visualized. From that point the scope was slowly withdrawn inspecting all surfaces carefully. There were no neoplastic inflammatory or polypoid lesions throughout the cecum, ascending, transverse, descending, and rectum. There was no residual diverticulosis noted. The patient's anastomosis was widely patent. Digital rectal examination was normal. The patient was taken to the recovery room in stable condition per anesthesia guidelines. RECOMMENDATIONS: Resume diet. Repeat colonoscopy 5 to 10 years.
[2025-04-27 12:42] VITALS: BP 108/75; PULSE 78; RESP 16
== END 2025-04-27 12:58 | disposition home or self-care (01) ==
LOC: ORWHC2ENDO 11:27
PROVIDERS: ATTEND Surgery
DX: K57.32 Diverticulitis of large intestine without perforation or abscess without bleeding (principal); E78.5 Hyperlipidemia, unspecified; Z80.0 Family history of malignant neoplasm of digestive organs; Z88.1 Allergy status to other antibiotic agents; Z90.49 Acquired absence of other specified parts of digestive tract; Z90.89 Acquired absence of other organs
CPT/HCPCS: 81025; 45378; J2704